=== PATIENT | female | born 1950 | race Caucasian/White ===

== ENCOUNTER 2017-04-02 23:00 | Inpatient (IN) | payer OTHER, BC ==
[~2017-04-02] VITALS: Ht 160 cm; Wt 61.7 kg
[~2017-04-02 23:00] MED LIST: ACET-8386 PO; CITA20TA15 PO; FERR325E14 PO; FOLI1TAB19 PO; NEBI10TA PO
[2017-04-02 23:20] VITALS: BP 149/82
[2017-04-02] MEDS ORDERED: ACETAMINOPHEN 325 MG TAB ONE (23:35)
--- NOTE | 2017-04-03 00:05 | NUR ---
PT TAKEN TO BED 6
--- NOTE | 2017-04-03 00:08 | NUR ---
67 Y/O F W/C/O L LEG SWELLING , PAIN,FEVER FOR 3 DAYS. SHE TOOK TYLENOL AT 1630 HOURS. PT ALSO STATES WAS REFER BY PMD TO THIS ER FOR LOW HGB AND HCT. PT ON MONITOR, VSS, NORMAL SINUS RHYTHM.
--- NOTE | 2017-04-03 00:11 | NUR ---
DR. KIM EVALUATING PT BY BEDSIDE
[2017-04-03 00:54] LABS: ANION GAP 13.5 (8-16); CARBON DIOXIDE 21.7 mmol/L (21-32); CREATININE 1.1 mg/dL (0.6-1.3); POTASSIUM 3.2 mmol/L (3.5-5.1)
[2017-04-03] MEDS ORDERED: HYDROmorphone 1 MG/ML AMP IVP ONE (00:55)
[2017-04-03 01:06] LABS: MEAN CORPUSCULAR HEMOGLOBIN 17 pg (27-31); MEAN CORPUSCULAR HGB CONC 29 g/dL (33-37); MEAN CORPUSCULAR VOLUME 59 fL (80-94); PLATELET COUNT (AUTO) 468 K/uL (140-450); RED BLOOD CELL COUNT(AUTO) 2.98 MIL/uL (4.20-5.40)
[2017-04-03 01:07] LABS: ALBUMIN 2.9 g/dL (3.4-5.0); TOTAL BILIRUBIN 0.4 mg/dL (0.0-1.0)
[2017-04-03 01:09] LABS: HEMATOCRIT 17.5 % (36-48); HEMOGLOBIN 5.1 g/dL (12.0-16.0); WHITE BLOOD COUNT (AUTO) 25.5 K/uL (4.8-10.8)
[2017-04-03 01:10] LABS: RED CELL DISTRIBUTION WIDTH 20.8 % (11.6-13.7)
[2017-04-03 01:11] LABS: EOSINOPHILS % (MANUAL) 1 % (0-4); LYMPHOCYTES % (MANUAL) 1 % (20-46); MONOCYTES % (MANUAL) 3 % (5-12)
--- NOTE | 2017-04-03 01:39 | NUR ---
PT RESTING IN BED, ASLEEP, VSS. NO S/S OF DISTRESS NOTED AT THE MOMENT.
[2017-04-03] MEDS ORDERED: PIPERACILLIN/TAZOBACTAM 4.5 GM in DEXTROSE 5% 100 ML IV ONE (01:40)
[2017-04-03] MEDS ORDERED: DOCUSATE SODIUM 100 MG GELCAP PO PRN (01:55)
[2017-04-03] MEDS ORDERED: ONDANSETRON 4 MG/2 ML VIAL IM/IVP PRN (01:55)
[2017-04-03] MEDS ORDERED: PIPERACILLIN/TAZOBACTAM 2.25 GM VIAL IV ONE (02:05)
--- NOTE | 2017-04-03 02:07 | NUR ---
TEMP 100.8 F, PT STATES SHE IS UNABLE TO PROVIDE URINE AT THE MOMENT. JOSE C RAMSEY MADE AWARE.
[2017-04-03 02:14] LABS: PROTHROMBIN TIME 10.3 secs (10.8-13.4)
--- NOTE | 2017-04-03 02:18 | NUR ---
Dr. Johnson evaluating patient at bedside.
[2017-04-03] MEDS ORDERED: IBUPROFEN 400 MG TAB ONE (02:19)
--- NOTE | 2017-04-03 02:24 | NUR ---
Patient will be admitted to care of DR ESQUIVEL. Admited to TELEMETRY. Will go to room 107B. Belongings list completed. Report to MADINA GAMBOA.
[2017-04-03 02:25] LABS: CHOL/HDL RATIO 3.3 (1-4.5); FREE T4 (FREE THYROXINE) 1.14 ng/dL (0.76-1.46); THYROID STIMULATING HORMONE 1.61 uIU/mL (0.34-3.74)
--- NOTE | 2017-04-03 02:53 | NUR ---
PT TRASFERED TO FLOOR VIA GURJUANA. ACCOMPANIED BY CHARGE NURSE AND PRIMARY CARE NURSE. PT STABLE DURING TRASFER.
[2017-04-03 03:00] VITALS: BP 95/53
--- NOTE | 2017-04-03 03:00 | NUR ---
RECEIVED PT FROM ER VIA AXEL JOHNSON PT IS AAOX4 WITH GENERALIZED WEAKNESS ON TELEMETRY SR HL ON LEFT AC PATENT BILATERAL LOWER EXTREMITIES WITH EDEMA 2+ AND LEFT LE WITH CELLULITIS AND SCAB ON RT LE PT IS ORIENTED TO THE FLOOR CALL LIGHT WITHIN REACH. PENDING FROM LAB TO CALL WHEN BLOOD IS READY
[2017-04-03] MEDS: NACL 0.9% 1,000 ML IV SCH (04:02)
--- NOTE | 2017-04-03 04:30 | NUR ---
AT 04:30 AM FIRST UNIT OF BLOOD STARTED TO BE TRANSFUSED
--- NOTE | 2017-04-03 06:41 | NUR ---
PT HAS BEEN MONITORING BLOOD TRANSFUSIION AND FOLLOW PROTOCOL PT AAOX4 NOT DISTRESS NOTED ON TELMETRY SR
--- NOTE | 2017-04-03 07:10 | NUR ---
PT TAKEN TO RADIOLOGY FOR CT OF THE CHEST, PATIENT PREMEDICATED DUE TO ALLERGY TO IODINE. Addendum: 04/03/17 at 1027 by Aure Chun RN WRONG PATIENT, DISREGARD NOTE. PT TAKEN TO RADIOLOGY FOR CT OF THE CHEST, PATIENT PREMEDICATED DUE TO ALLERGY TO IODINE.
--- NOTE | 2017-04-03 07:20 | NUR ---
RECEIVED BEDSIDE REPORT FROM BEE PAINTER. PT AWAKE AND ALERT, NO SIGNS OF ACUTE DISTRESS. BOWEL SOUNDS ACTIVE IN ALL 4 QUADRANTS. PT ON ROOM AIR. AMBULATORY WITH ASSIST. SCAB ON RT LEG. IV PATENT AND ASYMPTOMATIC. PT DENIES PAIN. RE-ORIENTED TO HOSPITAL AND TO UNIT, PT VERBALIZED UNDERSTANDING. BED IN LOW POSITION, BED ALARM ON, BILATERAL HALF SIDE RAILS UP, CALL LIGHT WITHIN REACH. WILL CONTINUE TO MONITOR.
--- NOTE | 2017-04-03 07:32 | NUR ---
RECEIVED PATIENT FROM CT, PT AWAKE AND ALERT, COMPLAINING OF THROAT FEELING TIGHT. OXYGEN SATURATION 100%, BLOOD PRESSURE 111/87, PULSE 68, RESPIRATIONS 18, TEMPERATURE 97.1. PAGED DR GALVAN. Addendum: 04/03/17 at 1026 by Aure Chun RN WRONG PATIENT, DISREGARD NOTE. RECEIVED PATIENT FROM CT, PT AWAKE AND ALERT, COMPLAINING OF THROAT FEELING TIGHT. OXYGEN SATURATION 100%, BLOOD PRESSURE 111/87, PULSE 68, RESPIRATIONS 18, TEMPERATURE 97.1. PAGED DR GALVAN.
--- NOTE | 2017-04-03 07:55 | NUR ---
PAGED DR GALVAN AGAIN, PATIENT COMPLAINT OF THROAT FEELING ITCHY AND TIGHT, PT STATES THAT IT IS GETTING BETTER. Addendum: 04/03/17 at 1027 by Aure Chun RN WRONG PATIENT, DISREGARD NOTE. PAGED DR GALVAN AGAIN, PATIENT COMPLAINT OF THROAT FEELING ITCHY AND TIGHT, PT STATES THAT IT IS GETTING BETTER.
[2017-04-03 08:00] VITALS: BP 111/87
--- NOTE | 2017-04-03 08:09 | NUR ---
PATIENT HAS BEEN SCREENED AND CATEGORIZED HIGH NUTRITION RISK. PATIENT WILL BE SEEN WITHIN 1-2 DAYS OF ADMISSION. 04/03/17-04/04/[address]
[2017-04-03] MEDS: FERROUS SULFATE 325 MG TABEC PO SCH ×2 (08:28→18:44)
[2017-04-03] MEDS: FOLIC ACID 1 MG TAB PO SCH (08:28)
[2017-04-03] MEDS: CITALOPRAM 20 MG TAB PO SCH (08:29)
--- NOTE | 2017-04-03 08:45 | NUR ---
PT BLOOD TRANSFUSION FINISHED. NO REACTIONS. VITAL SIGNS ALL WITHIN NORMAL LIMITS. PT TOLERATED TRANSFUSION WELL. WILL CONTINUE TO MONITOR.
[2017-04-03] MEDS ORDERED: KCL 20 MEQ/WATER INJ PREMIX 100 ML IV SCH (09:00)
[2017-04-03] MEDS ORDERED: NEBIVOLOL HCL PO SCH (09:00)
[2017-04-03] MEDS ORDERED: ATORVASTATIN 20 MG TAB PO SCH (09:50)
[2017-04-03] MEDS ORDERED: ECOTRIN 81 MG TABEC PO SCH (09:51)
[2017-04-03] MEDS ORDERED: SODIUM PHOS / POTASSIUM PHOS 1 PKT PDR PO SCH (09:52)
[2017-04-03] MEDS ORDERED: LACTOBACILLUS RHAMNOSUS GG 1 EACH CAP PO SCH (09:52)
--- NOTE | 2017-04-03 09:54 | NUR ---
RECEIVED NEW ORDERS FROM DR SANDOVAL, NOTED, WILL CARRY OUT.
--- NOTE | 2017-04-03 09:55 | NUR ---
OBTAINED URINE SPECIMEN FROM PATIENT, TAKEN TO LAB. WILL CONTINUE TO MONITOR.
--- NOTE | 2017-04-03 10:15 | NUR ---
HUMBERTO STEEN. PT TOLERATING WELL. WILL CONTINUE TO MONITOR.
[2017-04-03 10:43] LABS: APPEARANCE,URINE CLEAR (CLEAR); BILIRUBIN,URINE NEGATIVE (NEGATIVE); BLOOD, URINE 2+ (NEGATIVE); COLOR,URINE YELLOW (YELLOW); LEUKOCYTE ESTERASE ,URINE NEGATIVE (NEGATIVE); NITRITE, URINE NEGATIVE (NEGATIVE); PH,URINE 5.5 (5.0-9.0); UGLUCOSE NEGATIVE (NEGATIVE)
[2017-04-03 10:52] LABS: RBC,URINE 11-20 (MOD) /HPF (0-5)
--- NOTE | 2017-04-03 11:16 | NUR ---
RECEIVED NEW ORDER FROM DR SANDOVAL FOR ULTRASOUND OF KIDNEYS AND BLADDER, NOTED, WILL CARRY OUT.
--- NOTE | 2017-04-03 11:17 | NUR ---
CALLED ULTRASOUND TO CONFIRM IF PATIENT NEEDS TO BE NPO FOR KIDNEY AND BLADDER ULTRASOUND, TEACHER VOCATIONAL TRAINING NOT CURRENTLY THERE, WILL CALL ME BACK.
--- NOTE | 2017-04-03 11:28 | NUR ---
PER ROUNDER AND BACKER, PT DOES NOT NEED TO BE NPO FOR BLADDER AND KIDNEY ULTRASOUND. PASTORAL MINISTRIES PROFESSOR AT BEDSIDE.
--- NOTE | 2017-04-03 11:28 | NUR ---
DR NAIK AT PATIENT BEDSIDE, RECEIVED NEW ORDERS. NOTED, WILL CARRY OUT. WILL CONTINUE TO MONITOR.
[2017-04-03 12:00] VITALS: BP 118/64
[2017-04-03] MEDS: PIPER/TAZO 3.375GM/D5W PREMIX 50 ML IV SCH ×2 (12:22→21:04)
--- NOTE | 2017-04-03 13:00 | NUR ---
DR RANGEL AT PATIENT BEDSIDE.
--- NOTE | 2017-04-03 13:11 | NUR ---
RECEIVED NEW ORDERS FROM DR SANDOVAL FOR LABS 04/04/17.
--- NOTE | 2017-04-03 13:53 | NUR ---
04/03/17 RD INITIAL ASSESSMENT COMPLETED PLEASE REFER TO NUTRITION ASSESSMENT UNDER CARE ACTIVITY FOR ESTIMATED NUTRITIONAL NEEDS. 1. CONTINUE REGULAR DIET 2. ENCOURAGE PO INTAKE TOLERATED 3. RD TO FOLLOW UP WITHIN 2-3 DAYS; HIGH RISK DEANN EVANS RD
[2017-04-03 16:00] VITALS: BP 133/73
[2017-04-03 16:14] LABS: HEMATOCRIT 21.1 % (36-48); MEAN CORPUSCULAR HEMOGLOBIN 19 pg (27-31); MEAN CORPUSCULAR HGB CONC 30 g/dL (33-37); MEAN CORPUSCULAR VOLUME 64 fL (80-94); PLATELET COUNT (AUTO) 407 K/uL (140-450); RED CELL DISTRIBUTION WIDTH 25.6 % (11.6-13.7); WHITE BLOOD COUNT (AUTO) 29.6 K/uL (4.8-10.8)
[2017-04-03 16:17] LABS: HEMOGLOBIN 6.4 g/dL (12.0-16.0)
[2017-04-03 16:30] LABS: ANION GAP 10.9 (8-16); CARBON DIOXIDE 23.4 mmol/L (21-32); CREATININE 0.7 mg/dL (0.6-1.3); POTASSIUM 3.3 mmol/L (3.5-5.1)
[2017-04-03 16:32] LABS: EOSINOPHILS % (MANUAL) 1 % (0-4); LYMPHOCYTES % (MANUAL) 4 % (20-46); MONOCYTES % (MANUAL) 3 % (5-12)
[2017-04-03] MEDS: ACETAMINOPHEN 325 MG TAB PO SCH ×2 (18:05→22:27)
--- NOTE | 2017-04-03 18:11 | NUR ---
PATIENT TEMPERATURE 103.1. DR TAVARES AND DR SANDOVAL MADE AWARE. PER DR TAVARES AND DR SANDOVAL, STILL BEGIN TRANSFUSION. BENADRYL PO AND TYLENOL PO WERE GIVEN PRE TRANSFUSION 1805. BLOOD PRESSURE 134/65, PULSE 86, RESPIRATIONS 18, PATIENT DENIES PAIN. WILL CONTINUE TO MONITOR.
--- NOTE | 2017-04-03 18:26 | NUR ---
BEGAN BLOOD TRANSFUSION, TEMPERATURE 102.8, PULSE 83, RESPIRATIONS 18, BLOOD PRESSURE 136/57, PATIENT DENIES PAIN. WILL CONTINUE TO MONITOR. DR TAVARES MADE AWARE. ICE PACKS ON PATIENT'S NECK AND GROIN. WILL CONTINUE TO MONITOR.
--- NOTE | 2017-04-03 18:41 | NUR ---
15 MINUTES INTO BLOOD TRANSFUSION, TEMPERATURE 102.1, PULSE 85, RESPIRATIONS 18, BLOOD PRESSURE 124/71, PATIENT DENIES PAIN. WILL CONTINUE TO MONITOR.
--- NOTE | 2017-04-03 19:20 | NUR ---
PT AWAKE AND ALERT, RECEIVING BLOOD TRANSFUSION. ENDORSED TO BINDER OPERATOR NURSE FOR CONTINUITY OF CARE.
--- NOTE | 2017-04-03 19:25 | NUR ---
RECEIVED PT FROM DARNELL PAINTER PT IS AAOX4 ON BED REST ON BLOOD TRANSFUSION ON LEFT AC STABLE AT THIS TIME, ON TELEMETRY SR INITIAL ASSESSMENT DONE
[2017-04-03 20:00] VITALS: BP 114/59
--- NOTE | 2017-04-03 21:00 | NUR ---
PT LANE BEEN ON CLOSE MONITORING FOR BLOOD TRANSFUSION NOT SIGNS OF ALLERGY REMAIN STABLE AT THIS TIME REPOSITIONED
[2017-04-03] MEDS: ASCORBIC ACID 500 MG TAB PO SCH (21:04)
--- NOTE | 2017-04-03 22:00 | NUR ---
BLOOD TRANSFUSION FINISH TOLERATED WELL AND PROTOCOL DONE
[2017-04-03] MEDS: FUROSEMIDE 20 MG TAB PO SCH (22:27)
[2017-04-04] VITALS: BP 106/53
[2017-04-04] MEDS: FUROSEMIDE 20 MG TAB PO SCH
--- NOTE | 2017-04-04 | NUR ---
PT SLEPT WELL, EASY TO AWAKE. DENIES ANY PAIN AT THIS TIME. NO S/S OF RESP.DISTRESS, NO SOB.CALL LIGHT IN REACH.
[2017-04-04] MEDS: NACL 0.9% 1,000 ML IV SCH (01:54)
[2017-04-04 04:00] VITALS: BP 121/69
[2017-04-04] MEDS: ACETAMINOPHEN 325 MG TAB PO SCH (04:00)
--- NOTE | 2017-04-04 04:00 | NUR ---
PT SLEPT WELL,NO S/S OF RESP.DISTRESS,NO SOB. RESP EVEN NON LABOR ON ROOM AIR. SKIN WARM TO TOUCH.KEPT CLEAN AND DRY. CALL LIGHT PLACED BETWEEN REACH.
--- NOTE | 2017-04-04 05:00 | NUR ---
SPONGE BATH GIVEN LINEN CHANGED REPOSITIONED PT DENIES ANY PAIN OR DISCOMFORT ON TELEMETRY SR
[2017-04-04] MEDS: PIPER/TAZO 3.375GM/D5W PREMIX 50 ML IV SCH ×3 (05:11→20:21)
[2017-04-04] MEDS ORDERED: POTASSIUM CHLORIDE 20% 40 MEQ/15 ML UDC PO SCH (05:35)
--- NOTE | 2017-04-04 06:00 | NUR ---
ORAL POTASSIUM IS ORDER BUT DR TAVARES SAID WAIT TO GIVE IT UNTIL LAB RESULT THIS AM
[2017-04-04 06:20] LABS: HEMATOCRIT 25.1 % (36-48); HEMOGLOBIN 7.7 g/dL (12.0-16.0); MEAN CORPUSCULAR HEMOGLOBIN 20 pg (27-31); MEAN CORPUSCULAR HGB CONC 30 g/dL (33-37); MEAN CORPUSCULAR VOLUME 66 fL (80-94); PLATELET COUNT (AUTO) 401 K/uL (140-450); RED BLOOD CELL COUNT(AUTO) 3.83 MIL/uL (4.20-5.40); RED CELL DISTRIBUTION WIDTH 27.1 % (11.6-13.7)
[2017-04-04] MEDS: HYDROcodone/APAP 5/325 MG 1 TAB TAB PO PRN ×2 (06:20→17:21)
[2017-04-04 07:04] LABS: ANION GAP 13.1 (8-16); CARBON DIOXIDE 23.9 mmol/L (21-32); CREATININE 0.8 mg/dL (0.6-1.3)
[2017-04-04 07:45] LABS: WHITE BLOOD COUNT (AUTO) 35.2 K/uL (4.8-10.8)
[2017-04-04 07:47] LABS: LYMPHOCYTES % (MANUAL) 5 % (20-46); MONOCYTES % (MANUAL) 6 % (5-12)
[2017-04-04 08:00] VITALS: BP 119/66
--- NOTE | 2017-04-04 08:11 | NUR ---
RECEIVED REPORT FROM BEE PAINTER FOR CONTINUITY OF CARE PATIENT AWAKE, A/OX4 NO S/S OF RESP DISTRESS NOTED ABLE TO MAKE NEEDS KNOWN . IV SITE LT AC GAUGE 18 INTACT AND PATENT . IVF INFUSING WELL. RECEIVED CRITICAL LAB REPORT WBC 35.[address] LIPSCOMB AND NOTIFIED HIGH TEMP 101.0 , PLAN OF CARE DISCUSSED WITH THE PATIENT VITALS STABLE WILL CONTINUE TO MONITOR.
[2017-04-04 08:30] LABS: T4 (THYROXINE) 6.1 ug/dL (4.5-12.0)
[2017-04-04] MEDS ORDERED: ECOTRIN 81 MG TABEC PO SCH (09:00)
[2017-04-04] MEDS ORDERED: VANCOMYCIN PER PHARMACY MC PRN (09:00)
--- NOTE | 2017-04-04 09:30 | NUR ---
DUE MEDS GIVEN TOLERATED WELL. CRITICAL LAB K+ 2.[address] DINERO NEW ORDER CARRIED OUT . ATE BREAKFAST GOOD APPETITE
[2017-04-04 09:36] LABS: ANION GAP 14.9 (8-16); CARBON DIOXIDE 23.9 mmol/L (21-32); POTASSIUM 2.8 mmol/L (3.5-5.1)
[2017-04-04 09:37] LABS: ALBUMIN 2.3 g/dL (3.4-5.0); CREATININE 0.8 mg/dL (0.6-1.3); TOTAL BILIRUBIN 0.9 mg/dL (0.0-1.0)
[2017-04-04] MEDS: FERROUS SULFATE 325 MG TABEC PO SCH ×2 (09:51→17:18)
[2017-04-04] MEDS: ASCORBIC ACID 500 MG TAB PO SCH ×2 (09:51→20:20)
[2017-04-04] MEDS: LACTOBACILLUS RHAMNOSUS GG 1 EACH CAP PO SCH (09:51)
[2017-04-04] MEDS: FOLIC ACID 1 MG TAB PO SCH (09:51)
[2017-04-04] MEDS: ATORVASTATIN 20 MG TAB PO SCH (09:51)
[2017-04-04] MEDS: ACETAMINOPHEN 325 MG TAB PO PRN ×2 (09:51→20:20)
[2017-04-04] MEDS: CITALOPRAM 20 MG TAB PO SCH (09:52)
[2017-04-04] MEDS: SODIUM PHOS / POTASSIUM PHOS 1 PKT PDR PO SCH ×3 (09:52→16:32)
[2017-04-04] MEDS: CYANOCOBALAMIN 100 MCG TAB PO SCH (09:53)
[2017-04-04] MEDS ORDERED: VANCOMYCIN 1GM/DEXT 5% PREMIX 200 ML IV SCH (11:00)
--- NOTE | 2017-04-04 11:51 | NUR ---
SLEEPING BUT EASILY AWAKE NO DISTRESS NOTED VITALS STABLE
[2017-04-04] MEDS ORDERED: KCL 20 MEQ/WATER INJ PREMIX 100 ML IV SCH (12:00)
[2017-04-04 12:04] VITALS: BP 102/62
[2017-04-04 12:12] LABS: ANION GAP 8.9 (8-16); CARBON DIOXIDE 24.9 mmol/L (21-32); CREATININE 0.7 mg/dL (0.6-1.3); POTASSIUM 3.8 mmol/L (3.5-5.1)
[2017-04-04 12:51] LABS: FERRITIN 57 ng/mL (15-150); FOLIC ACID > 20.00 ng/mL (>3.0)
--- NOTE | 2017-04-04 14:19 | NUR ---
AMBULATE TO BATHROOM , NO WEAKNESS NOTED HAD BM STABLE CONDITION.
[2017-04-04 16:05] VITALS: BP 131/72
--- NOTE | 2017-04-04 17:07 | NUR ---
RESTING , NO DISTRESS NOTED DENIES ANY PAIN VITALS STABLE AT THIS TIME.
--- NOTE | 2017-04-04 17:23 | NUR ---
C/O PAIN ON LEFT LOWER LEG MEDICATED WITH NORCO ONE TAB ORDERED. INSTRUCT PATIENT TO CALL WHEN SHE HAS A BM PT VERBALIZED UNDERSTANDING.
--- NOTE | 2017-04-04 18:20 | NUR ---
SAFETY MAINTAINED, CALL LIGHT IN REACH ,STABLE CONDITION AT THIS TIME.
--- NOTE | 2017-04-04 19:20 | NUR ---
RECEIVED REPORT FROM DAY RN, PATIENT IS SLEEPING IN BED, NO S/S OF ACUTE DISTRESS NOTED, RESPIRATION EVEN AND UNLABORED, PATIENT IS EASY TO AROUSE, ORIENTED X4. IV INTACT AND PATENT, INFUSING NS AT 30ML/HR. PLAN OF CARE DISCUSSED, VERBALIZED UNDERSTANDING, CALL LIGHT WITHIN REACH, SAFETY MEASURE ENSURED, WILL CONTINUE TO MONITOR.
[2017-04-04 20:00] VITALS: BP 105/64
--- NOTE | 2017-04-04 20:25 | NUR ---
TEMP 100.4, TYLENOL GIVEN ORDERED. PM MEDICATION GIVEN WELL. PATIENT TOLERATED WELL. NO S/S OF ACUTE DISTRESS NOTED, RESPIRATION EVEN AND UNLABORED, WILL CONTINUE TO MONITOR.
--- NOTE | 2017-04-04 21:10 | NUR ---
PATIENT IS EXAMINED BY DR. MCCORMACK AT THE BEDSIDE.
[2017-04-04] MEDS ORDERED: CLINDAMYCIN 600 MG/4 ML VIAL ONE (23:18)
[2017-04-04] MEDS: CLINDAMYCIN 600 MG in DEXTROSE 5% 50 ML IV SCH (23:40)
--- NOTE | 2017-04-04 23:52 | NUR ---
TEMP 98.5, CLEOCIN STARTED, PATIENT TOLERATED WELL. WILL CONTINUE TO MONITOR
[2017-04-05] VITALS: BP 123/66
--- NOTE | 2017-04-05 01:35 | NUR ---
PATIENT IS SLEEPING AT THIS TIME, NO S/S OF ACUTE DISTRESS NOTED, RESPIRATION EVEN AND UNLABORED, CALL LIGHT WITHIN REACH, SAFETY MEASURE ENSURED, WILL CONTINUE TO MONITOR.
[2017-04-05] MEDS: NACL 0.9% 1,000 ML IV SCH (01:54)
--- NOTE | 2017-04-05 03:32 | NUR ---
IV ON THE BED, TIP INTACT, BLEEDING NOTED AT THE IV SITE. PRESSURE APPLIED TO THE IV SITE UNTIL NO ACTIVE BLEEDING NOTED. STARTED NEW IV ON LT HAND 22G, PATIENT TOLERATED WELL.
[2017-04-05 04:00] VITALS: BP 136/75
[2017-04-05] MEDS: HYDROcodone/APAP 5/325 MG 1 TAB TAB PO PRN ×3 (04:24→23:14)
[2017-04-05] MEDS ORDERED: CLINDAMYCIN 600 MG/4 ML VIAL ONE (04:52)
[2017-04-05] MEDS: CLINDAMYCIN 600 MG in DEXTROSE 5% 50 ML IV SCH ×4 (05:15→23:18)
--- NOTE | 2017-04-05 05:21 | NUR ---
AM CLEOCIN STARTED. PATIENT TOLERATED WELL, NO S/S OF ACUTE DISTRESS NOTED ,RESPIRATION EVEN AND UNLABORED. WILL CONTINUE TO MONITOR.
--- NOTE | 2017-04-05 06:19 | NUR ---
PATIENT IS SLEEPING AT THIS TIME NO S/S OF ACUTE DISTRESS NOTED, RESPIRATION EVEN AND UNLABORED, CALL LIGHT WITHIN REACH, SAFETY MEASURE ENSURED, WILL CONTINUE TO MONITOR.
[2017-04-05 07:10] LABS: HEMATOCRIT 24.2 % (36-48); HEMOGLOBIN 7.4 g/dL (12.0-16.0); MEAN CORPUSCULAR HEMOGLOBIN 20 pg (27-31); MEAN CORPUSCULAR HGB CONC 31 g/dL (33-37); MEAN CORPUSCULAR VOLUME 66 fL (80-94); PLATELET COUNT (AUTO) 452 K/uL (140-450); RED BLOOD CELL COUNT(AUTO) 3.67 MIL/uL (4.20-5.40)
--- NOTE | 2017-04-05 07:15 | NUR ---
ENDORSED PLAN OF CARE TO DAY RN. PATIENT IN STABLE CONDITION. NO S/S OF ACUTE DISTRESS.
--- NOTE | 2017-04-05 07:16 | NUR ---
RECEIVED PT FROM RADIOLOGIC TECHNOLOGIST CHIEF NURSE AT BEDSIDE. PT IS A&OX4. PT HAS IV ON L HAND 22 G RUNNING NS@30. PT HAS LLE SWELLING, 1+ PITTING. ELEVATED PT'S LEG ON 2 PILLOWS. PT HAS NO COMPLAINTS AT THIS TIME. CALL LIGHT WITHIN REACH. WILL CONTINUE TO MONITOR.
[2017-04-05 07:22] LABS: ANION GAP 10.6 (8-16); CARBON DIOXIDE 26.4 mmol/L (21-32); CREATININE 0.5 mg/dL (0.6-1.3)
[2017-04-05 07:33] LABS: WHITE BLOOD COUNT (AUTO) 34.4 K/uL (4.8-10.8)
[2017-04-05 08:00] VITALS: BP 114/64
[2017-04-05 08:15] LABS: LYMPHOCYTES % (MANUAL) 5 % (20-46); MONOCYTES % (MANUAL) 3 % (5-12)
[2017-04-05] MEDS ORDERED: POTASSIUM CHLORIDE 20% 40 MEQ/15 ML UDC PO SCH (09:00)
--- NOTE | 2017-04-05 09:00 | NUR ---
PT IN STABLE CONDITION. NO DISTRESS NOTED. CALL LIGHT WITHIN REACH. WILL CONTINUE TO MONITOR.
[2017-04-05] MEDS: CYANOCOBALAMIN 100 MCG TAB PO SCH (09:03)
[2017-04-05] MEDS: ATORVASTATIN 20 MG TAB PO SCH (09:03)
[2017-04-05] MEDS: CITALOPRAM 20 MG TAB PO SCH (09:04)
[2017-04-05] MEDS: ASCORBIC ACID 500 MG TAB PO SCH ×2 (09:04→21:21)
[2017-04-05] MEDS: LACTOBACILLUS RHAMNOSUS GG 1 EACH CAP PO SCH (09:04)
[2017-04-05] MEDS: FERROUS SULFATE 325 MG TABEC PO SCH ×2 (09:04→17:27)
[2017-04-05] MEDS: FOLIC ACID 1 MG TAB PO SCH (09:05)
--- NOTE | 2017-04-05 10:40 | NUR ---
PT REQUESTED TO SPEAK TO ONCE HER SON GETS HERE. WILL TALK TO DR TO LET HER KNOW ONCE SON GETS HERE. Addendum: 04/05/17 at 1056 by Cadence Welch RN WRONG PATIENT
[2017-04-05 12:00] VITALS: BP 119/69
--- NOTE | 2017-04-05 12:00 | NUR ---
PT SAT UP IN BED AND HAD LUNCH. TOLERATED WELL. CALL LIGHT WITHIN REACH. WILL CONTINUE TO MONITOR.
--- NOTE | 2017-04-05 14:05 | NUR ---
04/05/17 RD FOLLOW UP COMPLETED. PLEASE REFER TO NUTRITION PROGRESS NOTES UNDER CARE ACTIVITY FOR ESTIMATED NUTRITIONAL NEEDS. RD RECOMMENDATIONS: 1- RECOMMEND CONTINUE REGULAR DIET. 2- RD F/U 3-5 DAYS; MODERATE RISK. JASON KENNY MBA, RD
--- NOTE | 2017-04-05 14:56 | NUR ---
PT'S LLE SWELLING HAS GONE DOWN. KEEP LEG ELEVATED. CALL LIGHT WITHIN REACH. WILL CONTINUE TO MONITOR.
[2017-04-05 16:00] VITALS: BP 128/73
[2017-04-05] MEDS: ACETAMINOPHEN 325 MG TAB PO PRN (16:45)
--- NOTE | 2017-04-05 16:46 | NUR ---
PT'S ORAL TEMP 101.2. ICE PACKS APPLIED. TYLENOL GIVEN. WILL RECHECK TEMP. CALL LIGHT WITHIN REACH. WILL CONTINUE TO MONITOR.
--- NOTE | 2017-04-05 17:32 | NUR ---
PT ORAL TEMP 98.8. CALL LIGHT WITHIN REACH. WILL CONTINUE TO MONITOR.
--- NOTE | 2017-04-05 19:21 | NUR ---
ENDORSED CARE OF PT TO HAND MITER OPERATOR NURSE AT BEDSIDE. PT IN STABLE CONDITION.
--- NOTE | 2017-04-05 19:25 | NUR ---
RECEIVED PT FROM NAWAF PAINTER PT IS AAOX4 , NOT FEVER AT THIS TIME RESTING ON BED IV ON LEFT HAND INFUSING WELL , ON TELEMETRY SR PT DENIES ANY PAIN VISITOR AT BED SIDE INITIAL ASSESSMENT DONE
[2017-04-05 20:00] VITALS: BP 114/70
--- NOTE | 2017-04-05 22:00 | NUR ---
;PT REMAIN STABLE NOT DISTRESS NOTED WATCHING TV REPOSITIONED Q2H, ON TELEMETRY SR PVC
[2017-04-06] VITALS: BP 128/79
--- NOTE | 2017-04-06 01:15 | NUR ---
AFTER PAIN MEDIC GIVEN PT SLEEP QUIET NOT DISTRESS NOTED ON TELEM SR PVC
[2017-04-06] MEDS: NACL 0.9% 1,000 ML IV SCH (01:54)
[2017-04-06 04:00] VITALS: BP 134/68
--- NOTE | 2017-04-06 04:00 | NUR ---
SPONGE BATH GIVEN LINEN CHANGED PT SLEEPING WELL NOT FEVER ON TELEMETRY SR PAC REPOSITIONED Q2H
[2017-04-06] MEDS: CLINDAMYCIN 600 MG in DEXTROSE 5% 50 ML IV SCH ×2 (05:54→11:41)
--- NOTE | 2017-04-06 06:09 | NUR ---
PT DENIES ANY PAIN OR DISCOMFORT NOT FEVER ON TELE SR PVCS
[2017-04-06 06:56] LABS: HEMATOCRIT 23.5 % (36-48); HEMOGLOBIN 7.2 g/dL (12.0-16.0); MEAN CORPUSCULAR HEMOGLOBIN 20 pg (27-31); MEAN CORPUSCULAR HGB CONC 30 g/dL (33-37); MEAN CORPUSCULAR VOLUME 66 fL (80-94); PLATELET COUNT (AUTO) 465 K/uL (140-450); RED BLOOD CELL COUNT(AUTO) 3.59 MIL/uL (4.20-5.40); RED CELL DISTRIBUTION WIDTH 27.9 % (11.6-13.7); WHITE BLOOD COUNT (AUTO) 22.6 K/uL (4.8-10.8)
--- NOTE | 2017-04-06 07:10 | NUR ---
RECEIVED REPORT FROM NIGHT NURSE, PT RESTING, AAOX4, PT ON ROOM AIR, IV TO L HAND 22G, INFUSING WELL, SKIN INTACT WITH L LOWER LEG CELLULITIS AND R LOWER LEG SCAB, INITIAL ASSESSMENT COMPLETED, REVIEWED PLAN OF CARE WITH PT, PT VERBALIZED UNDERSTANDING, ALL SAFETY PRECAUTION MET, CALL LIGHT WITHIN REACH. WILL CONTINUE TO MONITOR.
[2017-04-06 07:27] LABS: ANION GAP 11.6 (8-16); CARBON DIOXIDE 25.8 mmol/L (21-32); CREATININE 0.5 mg/dL (0.6-1.3); POTASSIUM 3.4 mmol/L (3.5-5.1)
[2017-04-06 07:28] LABS: MAGNESIUM 1.8 mg/dL (1.8-2.4); PHOSPHORUS 2.7 mg/dL (2.5-4.9)
[2017-04-06 07:42] LABS: LYMPHOCYTES % (MANUAL) 8 % (20-46); MONOCYTES % (MANUAL) 2 % (5-12)
[2017-04-06] MEDS ORDERED: CLIN300C2 PO ×3 (07:46→14:22)
[2017-04-06] MEDS ORDERED: LACT10CA PO (07:46)
[2017-04-06 07:55] VITALS: BP 132/73
[2017-04-06] MEDS: LACTOBACILLUS RHAMNOSUS GG 1 EACH CAP PO SCH (08:42)
[2017-04-06] MEDS: CITALOPRAM 20 MG TAB PO SCH (08:42)
[2017-04-06] MEDS: FOLIC ACID 1 MG TAB PO SCH (08:42)
[2017-04-06] MEDS: ATORVASTATIN 20 MG TAB PO SCH (08:42)
[2017-04-06] MEDS: FERROUS SULFATE 325 MG TABEC PO SCH (08:42)
[2017-04-06] MEDS: CYANOCOBALAMIN 100 MCG TAB PO SCH (08:43)
[2017-04-06] MEDS: ASCORBIC ACID 500 MG TAB PO SCH (08:44)
--- NOTE | 2017-04-06 08:44 | NUR ---
DUE MEDICATION GIVEN, PT TOLERATED WELL, PT RESTING ON BED, NO DISTRESS NOTED, CALL LIGHT WITHIN REACH, WILL CONTINUE TO MONITOR.
[2017-04-06] MEDS: HYDROcodone/APAP 5/325 MG 1 TAB TAB PO PRN (08:52)
[2017-04-06] MEDS ORDERED: POTASSIUM CHLORIDE 20% 40 MEQ/15 ML UDC PO SCH (09:00)
[2017-04-06] MEDS ORDERED: PNEUMOCOCCAL VACCINE 23 MCG/0.5 ML VIAL IMVAC SCH (10:05)
--- NOTE | 2017-04-06 10:09 | NUR ---
DISCUSSED DISCHARGE PLANNING, PT VERBALIZED UNDERSTANDING. PT RESTING, NO DISTRESS NOTED, CALL LIGHT WITHIN REACH, WILL CONTINUE TO MONITOR.
--- NOTE | 2017-04-06 11:44 | NUR ---
DUE MEDICATION GIVEN, PT TOLERATED WELL, A SLEEP EASILY AROUSED, NO DISTRESS NOTED, CALL LIGHT WITHIN REACH
[2017-04-06 11:55] VITALS: BP 140/81
--- NOTE | 2017-04-06 14:15 | NUR ---
DISCHARGE INFORMATION GIVEN, MEDICATION INFORMATION GIVEN, FOLLOW UP INFORMATION GIVEN, NUTRITION INFORMATION GIVEN, PNEUMONIA VACCINE GIVEN, PT STATED UNDERSTANDING, IV TAKEN OUT, CATHETER INTACT, PT STABLE, BELONGING WITH PT, ID BANDS REMOVED. FRIEND BY BEDSIDE.
--- NOTE | 2017-04-06 14:20 | NUR ---
PT WAS WHEELED OUT TO LOBBY IN STABLE CONDITION.
== END 2017-04-06 14:20 | disposition home or self-care (01) | DRG 871 ==
LOC: MED 23:00 → MTU 04-03 02:00
PROVIDERS: ADMIT Family Medicine Sports Medicine; ATTEND Family Medicine Sports Medicine
PROC: 30233N1 Transfusion of Nonautologous Red Blood Cells into Peripheral Vein, Percutaneous Approach (ICD-10-PCS; principal; 2017-04-03)
DX: A41.9 Sepsis, unspecified organism (principal); N17.0 Acute kidney failure with tubular necrosis; I50.43 Acute on chronic combined systolic (congestive) and diastolic (congestive) heart failure; E44.0 Moderate protein-calorie malnutrition; L03.116 Cellulitis of left lower limb; E87.1 Hypo-osmolality and hyponatremia; D50.9 Iron deficiency anemia, unspecified; I11.0 Hypertensive heart disease with heart failure; M62.58 Muscle wasting and atrophy, not elsewhere classified, other site; E83.39 Other disorders of phosphorus metabolism; D58.0 Hereditary spherocytosis; D47.3 Essential (hemorrhagic) thrombocythemia; E78.5 Hyperlipidemia, unspecified; E87.6 Hypokalemia; K21.9 Gastro-esophageal reflux disease without esophagitis; Z86.73 Personal history of transient ischemic attack (TIA), and cerebral infarction without residual deficits; Z90.3 Acquired absence of stomach [part of]; Z88.5 Allergy status to narcotic agent; Z68.24 Body mass index [BMI] 24.0-24.9, adult; Z79.899 Other long term (current) drug therapy; Z87.11 Personal history of peptic ulcer disease; Z82.49 Family history of ischemic heart disease and other diseases of the circulatory system; Z56.0 Unemployment, unspecified
CPT/HCPCS: 36415; 71010; 76770; 80048; 80053; 80202; 81001; 82607; 82728; 82746; 83036; 83540; 83605; 83735; 83880; 84100; 84436; 84439; 84443; 84479; 84484; 85025; 85610; 85730; 86886; 86900; 86901; 86920; 87040; 87081; 87086; 90732; 93005; 93970; 96365; 96375; 99285; J1170; J2543; J3370; J3480; J3490; J7030; J7060; P9016; Q0092; Q0163

== ENCOUNTER 2017-04-14 15:51 | Inpatient (IN) | payer OTHER, BC ==
[~2017-04-14] VITALS: Ht 162.6 cm; Wt 60.8 kg
[~2017-04-14 15:51] MED LIST changes: +CLIN300C2 PO; +LACT10CA PO
[2017-04-14 16:29] VITALS: BP 137/79
--- NOTE | 2017-04-14 17:15 | NUR ---
PATIENT BIB PILLING MACHINE OPERATOR REFERRED BY DR HOWARD WITH C/O LEFT LEG PAIN CELLULITIS X 10 DAYS;HX OF ANEMIA, BRAIN ANEURYSM, ULCERS, HEMATOMA BACK NECK, DEPRESSION; RX OF NORCO . LT LEG HAS ULCER ; AAOX4 ; LUNGS CLEAR BL; HR EVEN AND REGULAR; PT DENIES ANY FEVER, CP, SOB, OR COUGH AT THIS TIME; PATIENT STATES PAIN OF 10/10 AT THIS TIME; VSS; PATIENT POSITIONED FOR COMFORT; HOB ELEVATED; BEDRAILS UP X2;ALL MONITORS IN PLACED; BED DOWN. ER MD MADE AWARE OF PT STATUS.
[2017-04-14 17:43] LABS: HEMATOCRIT 26.1 % (36-48); HEMOGLOBIN 8.1 g/dL (12.0-16.0); MEAN CORPUSCULAR HEMOGLOBIN 21 pg (27-31); MEAN CORPUSCULAR HGB CONC 31 g/dL (33-37); MEAN CORPUSCULAR VOLUME 68 fL (80-94); PLATELET COUNT (AUTO) 1309 K/uL (140-450); RED BLOOD CELL COUNT(AUTO) 3.83 MIL/uL (4.20-5.40); RED CELL DISTRIBUTION WIDTH 31.1 % (11.6-13.7)
[2017-04-14 17:52] LABS: PROTHROMBIN TIME 10.3 secs (10.8-13.4)
[2017-04-14 17:59] LABS: ALBUMIN 2.4 g/dL (3.4-5.0); CARBON DIOXIDE 28.1 mmol/L (21-32); POTASSIUM 5.1 mmol/L (3.5-5.1); TOTAL BILIRUBIN 0.2 mg/dL (0.0-1.0); WHITE BLOOD COUNT (AUTO) 15.1 K/uL (4.8-10.8)
[2017-04-14 18:00] LABS: LYMPHOCYTES % (MANUAL) 5 % (20-46); MONOCYTES % (MANUAL) 3 % (5-12)
[2017-04-14] MEDS ORDERED: NACL 0.9% 1,000 ML IV ONE (18:10)
[2017-04-14] MEDS ORDERED: CLINDAMYCIN 900 MG in DEXTROSE 5% 100 ML IV ONE (18:10)
[2017-04-14] MEDS ORDERED: KETOROLAC 30 MG/ML VIAL IVP ONE (18:10)
[2017-04-14 18:17] LABS: APPEARANCE,URINE CLEAR (CLEAR); BILIRUBIN,URINE 1+ (NEGATIVE); BLOOD, URINE NEGATIVE (NEGATIVE); LEUKOCYTE ESTERASE ,URINE NEGATIVE (NEGATIVE); NITRITE, URINE NEGATIVE (NEGATIVE); UGLUCOSE NEGATIVE (NEGATIVE)
[2017-04-14] MEDS ORDERED: CLINDAMYCIN 900 MG/6 ML VIAL IV ONE (18:18)
[2017-04-14 18:20] LABS: COLOR,URINE AMBER (YELLOW)
[2017-04-14] MEDS: NACL 0.9% 1,000 ML IV SCH (18:22)
[2017-04-14] MEDS ORDERED: DOCUSATE SODIUM 100 MG GELCAP PO PRN (18:25)
[2017-04-14] MEDS ORDERED: ONDANSETRON 4 MG/2 ML VIAL IM/IVP PRN (18:25)
--- NOTE | 2017-04-14 18:34 | NUR ---
PT RESTING ON BED;NO ACUTE DISTRESS NOTED;WILL CONTINUE TO MONITOR PT.
--- NOTE | 2017-04-14 19:00 | NUR ---
Patient will be admitted to care of DR HERMOSILLO. Admited to TELE. Will go to room 112 B. Belongings list completed. Report to MADINA KIMBROUGH.
[2017-04-14 20:00] VITALS: BP 109/62
--- NOTE | 2017-04-14 20:00 | NUR ---
LAB DID NOT CALL TO NOTIFY ME OF CRITICAL PLATELET COUNT, BUT MADE DR. FALK AWARE OF PLATELET COUNT 1309.
--- NOTE | 2017-04-14 20:00 | NUR ---
PT ARRIVED ON UNIT VIA GURNEY FROM ER. PT IS IN STABLE CONDITION. CC OF LLL PAIN FOR 5 DAYS, DX WITH CELLULITIS ON LLL. PT IS AAOX4, ON RA, IV TO R AC 20G, PATENT AND INTACT, INFUSING WELL. RESPIRATIONS ARE EVEN AND UNLABORED. BOWEL SOUNDS PRESENT. SKIN IS INTACT OTHER THEN THE CELLULITIS ON LEFT LOWER LEG. INITIAL ASSESSMENT COMPLETED.PLAN OF CARE DISCUSSED WITH PT, PT VERBALIZED UNDERSTANDING. ALL SAFETY PRECAUTIONS MET, CALL LIGHT WITHIN REACH, WILL CONTINUE TO MONITOR
[2017-04-14 20:22] LABS: CHOL/HDL RATIO 4.2 (1-4.5); FREE T4 (FREE THYROXINE) 0.87 ng/dL (0.76-1.46); MAGNESIUM 2.2 mg/dL (1.8-2.4); PHOSPHORUS 4.3 mg/dL (2.5-4.9); THYROID STIMULATING HORMONE 4.81 uIU/mL (0.34-3.74)
[2017-04-14 20:52] LABS: BARBITURATE, URINE NEG. ng/ml (NEG <=200); BENZODIAZEPINE, URINE POS. ng/mL (NEG <=200); CANNABINOID, URINE NEG. ng/mL (NEG <=50); COCAINE, URINE NEG. ng/mL (NEG <=300); OPIATE, URINE POS. ng/mL (NEG <=2000); PHENCYCLIDINE SCREEN,URINE NEG. ng/mL (NEG <=25)
[2017-04-14 21:32] LABS: HEMATOCRIT 23.4 % (36-48); MEAN CORPUSCULAR HEMOGLOBIN 21 pg (27-31); MEAN CORPUSCULAR HGB CONC 30 g/dL (33-37); MEAN CORPUSCULAR VOLUME 69 fL (80-94); PLATELET COUNT (AUTO) 1145 K/uL (140-450); RED BLOOD CELL COUNT(AUTO) 3.39 MIL/uL (4.20-5.40); RED CELL DISTRIBUTION WIDTH 30.9 % (11.6-13.7); WHITE BLOOD COUNT (AUTO) 12.1 K/uL (4.8-10.8)
--- NOTE | 2017-04-14 21:34 | NUR ---
LAB CALLED REGARDING H&H AND PLATELETS. H&H IS 7.0 AND 23.4. PLATELETS 1145. WILL PAGE THE
--- NOTE | 2017-04-14 21:35 | NUR ---
PAGED DR. FALK, REGARDING LABS. AWAITING PAGE BACK
--- NOTE | 2017-04-14 21:36 | NUR ---
DR. FALK MADE AWARE OF H&H AND PLATELETS, HE STATED HE WILL MONITOR THIS FOR NOW
[2017-04-14 21:40] LABS: EOSINOPHILS % (MANUAL) 1 % (0-4); LYMPHOCYTES % (MANUAL) 11 % (20-46); MONOCYTES % (MANUAL) 7 % (5-12)
--- NOTE | 2017-04-14 22:00 | NUR ---
SURESH GOMEZ REGARDING ADMIT ORDERS AWAITING PAGE BACK Addendum: 04/15/17 at 0147 by Pearl Hernandez RN ORDERS FOR PAIN MEDICATION AND DIET*
--- NOTE | 2017-04-14 22:30 | NUR ---
PAGED DR. GOMEZ AGAIN REGARDING MEDICATIONS AND DIET
--- NOTE | 2017-04-14 23:10 | NUR ---
PAGED DR. GOMEZ AGAIN REGARDING MEDICATIONS AND DIET
--- NOTE | 2017-04-14 23:40 | NUR ---
PAGED DR. GOMEZ AGAIN REGARDING MEDICATIONS AND DIET
[2017-04-15] VITALS: BP 119/57
--- NOTE | 2017-04-15 00:05 | NUR ---
PAGED DR. GOMEZ AGAIN REGARDING MEDICATIONS AND DIET
--- NOTE | 2017-04-15 00:50 | NUR ---
PAGED DR. GOMEZ AGAIN REGARDING MEDICATIONS AND DIET
--- NOTE | 2017-04-15 01:25 | NUR ---
DR. GOMEZ PAGED BACK, WILL CARRY OUT ORDERS
[2017-04-15] MEDS: ACETAMINOPHEN 325 MG TAB PO PRN ×2 (01:29→13:02)
--- NOTE | 2017-04-15 01:46 | NUR ---
ORDERS FOR PAIN MEDICATION AND DIET* Addendum: 04/15/17 at 0147 by Pearl Hernandez RN INCORRECT NOTE.
[2017-04-15 04:00] VITALS: BP 101/62
--- NOTE | 2017-04-15 04:10 | NUR ---
PAGED DR. COYLE TO PUT IN ORDER FOR PAIN MEDICATION THAT IS SEVERE
[2017-04-15] MEDS ORDERED: CLINDAMYCIN 600 MG/4 ML VIAL ONE (04:42)
[2017-04-15] MEDS: CLINDAMYCIN 600 MG in DEXTROSE 5% 50 ML IV SCH ×3 (04:44→21:06)
--- NOTE | 2017-04-15 05:05 | NUR ---
ADMINISTERED CLEOCIN WITH 50ML DEXTROSE FLUID
--- NOTE | 2017-04-15 06:05 | NUR ---
NS STARTED 0N 03/16/17 AND STILL INFUSING CLEOCIN STARTED ON 04/15/17 AT 0444 AND ENDED AT 0515 ON 04/15/17 Addendum: 04/15/17 at 0639 by Pearl Hernandez RN INCORRECT DATE* NS STARTED IN ER ON 04-14-17 STILL INFUSING. CLEOCIN 600 MG IVP STARTED ON 04-15-17 ON 0444 AND FINISHED 04-15-17 AT 0516
[2017-04-15 07:03] LABS: MEAN CORPUSCULAR HEMOGLOBIN 21 pg (27-31); MEAN CORPUSCULAR HGB CONC 30 g/dL (33-37); MEAN CORPUSCULAR VOLUME 68 fL (80-94); RED BLOOD CELL COUNT(AUTO) 3.25 MIL/uL (4.20-5.40); RED CELL DISTRIBUTION WIDTH 31.6 % (11.6-13.7); WHITE BLOOD COUNT (AUTO) 7.9 K/uL (4.8-10.8)
[2017-04-15 07:09] LABS: ANION GAP 11.2 (8-16); CARBON DIOXIDE 26.5 mmol/L (21-32); CREATININE 0.9 mg/dL (0.6-1.3); POTASSIUM 4.7 mmol/L (3.5-5.1)
--- NOTE | 2017-04-15 07:15 | NUR ---
ENDORSED PLAN OF CARE TO AM NURSE AT BEDSIDE FOR CONTINUITY OF CARE, PT IN STABLE CONDITION.
--- NOTE | 2017-04-15 07:20 | NUR ---
RECEIVED PT REPORT AT BEDSIDE FROM NIGHT NURSE. PT IS AAOX4 AND SHOWS NO S/S OF ACUTE DISTRESS ON ROOM AIR. PT ON TELE MONITOR. PT HAS NOTED ERYTHEMA, DRY, FLAKY SKIN ON THE LEFT LOWER LEG WITH SEROUS DRAINAGE. ALSO, WOUND BED IS DRY, DARK ERYTHEMATOUS AND FILM PRINTER. PT STATES PAIN ON THE LOWER LEG, WILL NOTIFY DR FOR PRN PAIN MEDICATION. IV NOTED ON THE R AC WITH IVF'S INFUSING WELL. PT WAS EXPLAINED POC FOR TODAY AND VERBALIZED UNDERSTANDING. THE BED IS LOWERED WITH CALL LIGHT WITHIN REACH. WILL CONTINUE TO MONITOR.
[2017-04-15 07:41] LABS: HEMOGLOBIN 6.7 g/dL (12.0-16.0)
[2017-04-15 07:42] LABS: PLATELET COUNT (AUTO) 1134 K/uL (140-450)
[2017-04-15 07:44] LABS: EOSINOPHILS % (MANUAL) 4 % (0-4); LYMPHOCYTES % (MANUAL) 24 % (20-46); MONOCYTES % (MANUAL) 4 % (5-12)
[2017-04-15 07:52] VITALS: BP 127/70
--- NOTE | 2017-04-15 08:20 | NUR ---
SPOKE WITH DR. COYLE REGARDING REQUEST FOR SEVERE PRN PAIN MEDICATIONS. TO PLACE IN ORDERS.
[2017-04-15 08:25] LABS: T4 (THYROXINE) 5.6 ug/dL (4.5-12.0)
--- NOTE | 2017-04-15 08:54 | NUR ---
PATIENT HAS BEEN SCREENED AND CATEGORIZED HIGH NUTRITION RISK. PATIENT WILL BE SEEN WITHIN 1-2 DAYS OF ADMISSION. 04/15/17-04/16/[address]
[2017-04-15] MEDS ORDERED: NEBIVOLOL HCL PO SCH (09:00)
[2017-04-15] MEDS: FERROUS SULFATE 325 MG TABEC PO SCH ×2 (09:02→17:37)
[2017-04-15] MEDS: LACTOBACILLUS RHAMNOSUS GG 1 EACH CAP PO SCH (09:02)
[2017-04-15] MEDS: CITALOPRAM 20 MG TAB PO SCH (09:03)
[2017-04-15] MEDS: FOLIC ACID 1 MG TAB PO SCH (09:03)
[2017-04-15] MEDS: HYDROcodone/APAP 10/325 MG 1 TAB TAB PO PRN ×3 (09:03→21:03)
[2017-04-15] MEDS: ASPIRIN 81 MG TAB.CHEW PO SCH (09:03)
--- NOTE | 2017-04-15 09:10 | NUR ---
ADMINISTERED SCHEDULED MEDICATIONS. PT TOLERATED WELL. PT C/O 6/10 LEFT LEG PAIN ADMINISTERED NORCO 10/325 MG PO. WILL REASSESS IN ONE HR. ALL OF PT'S NEEDS ARE MET AT THIS TIME. Addendum: 04/15/17 at 1144 by Lore Felton RN PT HAD 10/10 LOWER LEG PAIN, NOT 6/10.
[2017-04-15] MEDS ORDERED: FERRIC GLUCONATE 125 MG in NACL 0.9% 100 ML IV SCH (10:45)
[2017-04-15] MEDS: NACL 0.9% 1,000 ML IV SCH (11:34)
--- NOTE | 2017-04-15 11:35 | NUR ---
INFUSION OF NS IVF'S HAS ENDED.
--- NOTE | 2017-04-15 11:40 | NUR ---
SPOKE WITH DR SEWELL REGARDING PT'S HOME MEDICATION NEBIVOLOL HCL (BYSTOLIC) NON FORMULARY ITEM. TO PLACE IN NEW ORDERS.
[2017-04-15 12:00] VITALS: BP 137/86
--- NOTE | 2017-04-15 13:00 | NUR ---
ADMINISTERED SCHEDULED MEDICATIONS AND PRN TYLENOL 650 MG PO FOR MILD PAIN. WILL REASSESS IN ONE HR. PT AMB TO RR NOT PUTTING MUCH WEIGHT ON AFFECTED LEFT LEG. PT LIMPED TO THE RR. PT'S NEEDS ARE MET AT THIS TIME. PT IS NOW IN BED AND SHOWS NO S/S OF ACUTE DISTRESS ON ROOM AIR. IV ABX IS INFUSING WELL. WILL CONTINUE TO MONITOR.
[2017-04-15] MEDS ORDERED: MORPHINE SULFATE 2 MG/ML SYR IVP PRN (13:25)
[2017-04-15] MEDS ORDERED: LIDOCAINE 2% 1000 MG/50 ML VIAL INJ SCH (13:41)
--- NOTE | 2017-04-15 14:15 | NUR ---
PT BEING SEEN BY DR SEWELL FOR PROCEDURE OF DEBRIDEMENT. PT WAS MEDICATED FOR PAIN BEFORE HAND. WILL CONTINUE TO MONITOR.
--- NOTE | 2017-04-15 15:00 | NUR ---
PT IS SLEEPING AND SHOWS NO S/S OF ACUTE DISTRESS ON ROOM AIR. THE BED IS IN LOW POSITION WITH CALL LIGHT WITHIN REACH. WILL CONTINUE TO MONITOR.
[2017-04-15 16:00] VITALS: BP 142/80
--- NOTE | 2017-04-15 17:10 | NUR ---
ADMINISTERED PRN PAIN MEDICATION NORCO 10/325 MG PO FOR 7/10 LOWER LEFT LEG PAIN. WILL REASSESS IN ONE HR.
--- NOTE | 2017-04-15 19:25 | NUR ---
GAVE REPORT AT BEDSIDE TO NIGHT NURSE. PT ENDORSED IN STABLE CONDITION.
--- NOTE | 2017-04-15 19:26 | NUR ---
RECEIVED REPORT FROM DAY NURSE. PT IS IN STABLE CONDITION. PT IS AAOX4, ON ROOM AIR WITH CELLULITIS ON LLL. DRESSING IN PLACE, DRY AND INTACT. IV TO R AC 20G, PATENT AND INTACT, INFUSING WELL. RESPIRATIONS ARE EVEN AND UNLABORED. BOWEL SOUNDS PRESENT. INITIAL ASSESSMENT COMPLETED.PLAN OF CARE DISCUSSED WITH PT, PT VERBALIZED UNDERSTANDING. ALL SAFETY PRECAUTIONS MET, CALL LIGHT WITHIN REACH, WILL CONTINUE TO MONITOR
--- NOTE | 2017-04-15 19:30 | NUR ---
Patient's Plan of Care was discussed and reviewed with DUST COLLECTOR ATTENDANT: VENTURA GARCIA
[2017-04-15 20:00] VITALS: BP 133/76
[2017-04-16] VITALS: BP 126/74
[2017-04-16] MEDS ORDERED: MORPHINE SULFATE 2 MG/ML SYR ONE ×2 (01:41→05:17)
--- NOTE | 2017-04-16 01:50 | NUR ---
CALLED THE PHARMACY BECAUSE THE MORPHINE DR. NARANJO ORDERED HAS NOT BEEN VERIFIED YET, PHARMACY SAID TO HAVE SENIOR PROFESSIONAL SERVICES CONSULTANT OVERRIDE BECAUSE THEIR SYSTEM HAS BEEN DOWN AND THEY ARE NOT SURE WHEN IT WILL BE BACK UP. WILL NOTIFY SENIOR PROFESSIONAL SERVICES CONSULTANT
--- NOTE | 2017-04-16 01:51 | NUR ---
FAST FOOD COOK MADE AWARE OF PHARMACY SITUATION, FAST FOOD COOKBOUBACAR CALLED PHARMACY TO VERIFY WELL. SHE WILL OVERRIDE ORDER.
--- NOTE | 2017-04-16 01:52 | NUR ---
MORPHINE 2MG GIVEN TO PT FOR 10/10 LEFT LOWER LEG PAIN, AT 0152 04/16/[address] THOMAS, PHARMACY AND CDL TRUCK DRIVER VERIFIED.
[2017-04-16] MEDS: NACL 0.9% 1,000 ML IV SCH ×2 (03:42→20:51)
[2017-04-16 04:00] VITALS: BP 143/90
[2017-04-16] MEDS: CLINDAMYCIN 600 MG in DEXTROSE 5% 50 ML IV SCH ×3 (05:11→20:51)
[2017-04-16 06:00] LABS: HEMATOCRIT 23.7 % (36-48); HEMOGLOBIN 7.2 g/dL (12.0-16.0); MEAN CORPUSCULAR HEMOGLOBIN 21 pg (27-31); MEAN CORPUSCULAR HGB CONC 30 g/dL (33-37); MEAN CORPUSCULAR VOLUME 69 fL (80-94); PLATELET COUNT (AUTO) 1304 K/uL (140-450); RED BLOOD CELL COUNT(AUTO) 3.45 MIL/uL (4.20-5.40); RED CELL DISTRIBUTION WIDTH 31.6 % (11.6-13.7); WHITE BLOOD COUNT (AUTO) 7.4 K/uL (4.8-10.8)
[2017-04-16 06:04] LABS: ANION GAP 12.4 (8-16); CARBON DIOXIDE 25.4 mmol/L (21-32); CREATININE 0.6 mg/dL (0.6-1.3); POTASSIUM 4.8 mmol/L (3.5-5.1)
--- NOTE | 2017-04-16 06:30 | NUR ---
LAB DID NOT CALL REGARDING CRITICAL LAB VALUE OF PLATELETS OF 1304, MADE DR. JEFFERSON AWARE
[2017-04-16 06:42] LABS: EOSINOPHILS % (MANUAL) 8 % (0-4); LYMPHOCYTES % (MANUAL) 21 % (20-46); MONOCYTES % (MANUAL) 9 % (5-12)
--- NOTE | 2017-04-16 07:30 | NUR ---
RECEIVED PT IN BED. AWAKE. ALERT ORIENTED X4. NO SOB NOTED. DENIES ANY PAIN OR DISCOMFORT AT THIS TIME. POSITIVE BOWEL SOUNDS NOTED ON FOUR QUADRANTS, GOOD SKIN CARE PROVIDED ON LEFT LEG CELLULITIS. PT AMBULATORY WITH ASSIST. SAFETY PRECAUTION IN PLACE. CALL LIGHT WITHIN REACH.
--- NOTE | 2017-04-16 07:41 | NUR ---
GAVE REPORT TO DAY NURSE AT THE BEDSIDE FOR CONTINUITY OF CARE, PT IN STABLE CONDITION. NO S/S OF DISTRESS NOTED
[2017-04-16 08:00] VITALS: BP 158/83
[2017-04-16] MEDS: LACTOBACILLUS RHAMNOSUS GG 1 EACH CAP PO SCH (08:49)
[2017-04-16] MEDS: METOPROLOL SUCCINATE 50 MG TABER PO SCH (08:49)
[2017-04-16] MEDS: ASPIRIN 81 MG TAB.CHEW PO SCH (08:49)
[2017-04-16] MEDS: CITALOPRAM 20 MG TAB PO SCH (08:49)
[2017-04-16] MEDS: FOLIC ACID 1 MG TAB PO SCH (08:49)
[2017-04-16] MEDS: SODIUM CHLORIDE 1 GM TAB PO SCH (08:50)
[2017-04-16] MEDS: MORPHINE SULFATE 2 MG/ML SYR IVP PRN ×3 (08:53→21:02)
[2017-04-16 09:39] LABS: TRANSFERRIN 185 mg/dL (200-370)
--- NOTE | 2017-04-16 10:15 | NUR ---
ASKED DR. LAU IF WOULD WANT TO GIVE AN ORDER FOR LEFT LOWER LEG CELLULITIS WOUND, FOR WOUND CONSULT/TREATMENT. MD TO PUT IN AN ORDER.
[2017-04-16] MEDS ORDERED: ASCORBIC ACID 500 MG TAB PO SCH ×2 (10:33→13:30)
--- NOTE | 2017-04-16 10:33 | NUR ---
04/16/17 RD INITIAL ASSESSMENT COMPLETED PLEASE REFER TO NUTRITION ASSESSMENT UNDER CARE ACTIVITY FOR ESTIMATED NUTRITIONAL NEEDS. 1. CONTINUE CARDIAC DIET 2. ADD HEALTH SHAKE TID (FOR POOR PO INTAKE) 3. ADD VITAMIN C 500 MG/DAY (FOR WOUND HEALING) 4. RD TO FOLLOW-UP 2-3 DAYS, HIGH RISK DEANN EVANS, MAICOL
--- NOTE | 2017-04-16 11:39 | NUR ---
VITAL SIGNS TAKEN AND RECORDED. PT VERBALIZED THAT SHE FELT RELIEF AND PAIN MED WAS EFFECTIVE. NO SOB NOTED. DENIES ANY PAIN OR DISCOMFORT AT THIS TIME.
[2017-04-16 11:49] VITALS: BP 134/86
[2017-04-16 12:43] LABS: FERRITIN 55 ng/mL (15-150)
--- NOTE | 2017-04-16 12:59 | NUR ---
WOUND EVALUATION NOTE: REASON FOR WOUND EVALUATION: LLE POST DEBRIDEMENT WOUND CARE COMPLETE SKIN ASSESSMENT DONE ON THIS 67 Y/O FEMALE PATIENT FROM HOME TO [facility], WITH INITIAL DIAGNOSIS OF LLE SWELLING AND PAIN. PAST MEDICAL HISTORY INCLUDE HTN CVA, CEREBRAL ANEURYSM AND HEREDITARY SPHEROCYTOSIS. ALL ABOVE INFORMATION WAS OBTAINED FROM THE ADMISSION H&P. LABS ARE WBC 7.4, H/H 7.2/23.7, GLUCOSE 86, ALBUMIN 2.4. CURRENT MEDS INCLUDE AMLODIPINE, CLINDAMYCIN, ASPIRIN AND MORPHINE SULFATE. PATIENT IS AWAKE, ORIENTED TO PERSON, PLACE AND TIME. SKIN WARM TO TOUCH WNL, TOENAILS ARE SLIGHTLY THICKENED, NO EDEMA, BLE NO HAIR GROWTH AND NORMAL PEDAL PULSES. ABLE TO TURN SELF WITHOUT ASSISTANCE. PLAN OF CARE AND PRESSURE PREVENTIVE MEASURES DISCUSSED WITH PT. AND PRIMARY NURSE. PT. ABLE TO VERBALIZE UNDERSTANDING. INTEGUMENTARY: LLE LATERAL POST DEBRIDEMENT WOUND 6X5CM WITH 100% SLOUGH COVERED OVER WOUND BED, WITH ERYTHEMA SURROUND TISSUE, NO DRAINAGE, NO ODOR. BLE DRYNESS, SKIN INTACT RECOMMENDATIONS: -CLEAN LLE CELLULITIS ULCER WOUND WITH NS, PAT DRY, APPLY THERAHONEY WITH ADAPTIC AND COVER WITH DRY DRESSING AND SECURE WITH TAPE QD AND PRN IF SOILING. -APPLY HYDRAGUARD TO BLE DRY SKIN QD AND PRN -KEEP LLE ELEVATED,UNLESS OTHERWISE CONTRAINDICATED -TURN AND REPOSITION Q2H -OFFLOAD BILATERAL HEELS BY PLACING PILLOWS UNDER CALVES AT ALL TIMES, UNLESS OTHERWISE CONTRAINDICATED -KEEP SKIN CLEAN AND DRY AT ALL TIMES. -CONTINUE TO FOLLOW RD RECOMMENDATION -MAY HAVE HOME HEALTH TO FOLLOW UP FOR WOUND CARE COMORBIDITIES FOR WOUND HEALING: INFECTION MALNUTRITION WITH POOR ORAL INTAKE RECOMMENDATIONS DISCUSSED WITH PRIMARY RN AND DR. HILLIARD WILL FOLLOW UP PATIENT Q 7-10 DAYS AND PRN. PLEASE CONTACT WOUND CARE NURSE FOR ANY QUESTIONS AND CHANGES IN WOUND CONDITION.
--- NOTE | 2017-04-16 13:36 | NUR ---
CLARIFIED WITH DR. SEWELL ORDER FOR VITAMIN C, VIT C 500MG JUST GIVEN AND THERE IS A NEW ORDER FOR 250. MD TO CHANGE ORDER.
--- NOTE | 2017-04-16 13:43 | NUR ---
ENCOURAGED PT TO WALK ALONG THE HALLWAY, WAS ABLE TO DO ONE ROUND. PT WALKING STEADY. VERBALIZED SHE FEELS BETTER NOW THAN YESTERDAY.
[2017-04-16] MEDS: THERAHONEY GEL 42.5 GM TP SCH (13:58)
--- NOTE | 2017-04-16 14:29 | NUR ---
LEFT LOWER LEG CELLULITIS OPEN WOUND CLEANSED WITH NS PAT DRY AND APPLIED TREATMENT ORDERED. PT DENIES ANY PAIN WHILE CHANGING SITE. MINIMAL SEROUS DRAINAGE NOTED. NO ACTIVE BLEEDING NOTED. GOOD SKIN CARE PROVIDED.KEPT AREA CLEAN AND DRY. COVERED WITH GAUZE.
[2017-04-16 15:55] VITALS: BP 142/73
--- NOTE | 2017-04-16 19:20 | NUR ---
PT KEPT CLEAN,DRY AND COMFORTABLE, NEEDS ATTENDED. ENDORSED TO NEXT SHIFT ON STABLE CONDITION. FOR CONTINUITY OF CARE. NO SOB. DENIES ANY PAIN OR DISCOMFORT AT THIS TIME.
--- NOTE | 2017-04-16 19:30 | NUR ---
RECEIVED REPORT FROM DAY RN, PATIENT IS SLEEPING, EASY TO AROUSE, A/O X4, NO S/S OF ACUTE DISTRESS NOTED, RESPIRATION EVEN AND UNLABORED, IV PATENT AND INTACT, INFUSING NS AT 60ML/HR, LEFT LOWER EXTREMITY DRESSING CLEAN AND INTACT, PLAN OF CARE DISCUSSED, PATIENT VERBALIZED UNDERSTANDING, CALL LIGHT WITHIN REACH, SAFETY MEASURE ENSURED, WILL CONTINUE TO MONITOR.
[2017-04-16 20:01] VITALS: BP 151/80
[2017-04-16] MEDS ORDERED: amLODIPine 5 MG TAB PO SCH (21:00)
--- NOTE | 2017-04-16 21:05 | NUR ---
PATIENT STATED PAIN ON HER LT LOWER EXTREMITY 02/13, BP 151/80 HR 73, O2SAT 96%, MORPHINE GIVEN ORDERED, WILL CONTINUE TO MONITOR.
[2017-04-17] VITALS: BP 150/82
[2017-04-17] MEDS: MORPHINE SULFATE 2 MG/ML SYR IVP PRN ×3 (00:13→23:15)
--- NOTE | 2017-04-17 00:15 | NUR ---
PATIENT REQUESTED PAIN MEDICATION, UPON ASSESSMENT, PAIN 8/10, LT LOWER EXTREMITY, BP 150/82, HR 77, O2SAT 97%, MORPHINE GIVEN ORDERED, WILL CONTINUE TO MONITOR.
--- NOTE | 2017-04-17 01:47 | NUR ---
PATIENT IS SLEEPING AT THIS TIME, NO S/S OF ACUTE DISTRESS NOTED, RESPIRATION EVEN AND UNLABORED, CALL LIGHT WITHIN REACH, SAFETY MEASURE ENSURED, WILL CONTINUE TO MONITOR.
--- NOTE | 2017-04-17 03:11 | NUR ---
NO CHANGE IN CONDITION, LT LOWER EXTREMITY IS ELEVATED, PATIENT ASLEEP, NO S/S OF ACUTE DISTRESS NOTED, RESPIRATION EVEN AND UNLABORED, WILL CONTINUE TO MONITOR.
[2017-04-17 04:00] VITALS: BP 150/76
[2017-04-17] MEDS: CLINDAMYCIN 600 MG in DEXTROSE 5% 50 ML IV SCH ×3 (05:00→20:53)
--- NOTE | 2017-04-17 06:11 | NUR ---
PATIENT IS SLEEPING AT THIS TIME. NO S/S OF ACUTE DISTRESS NOTED, RESPIRATION EVEN AND UNLABORED, CALL LIGHT WITHIN REACH, SAFETY MEASURE ENSURED, WILL CONTINUE TO MONITOR.
[2017-04-17 06:40] LABS: BASOPHILS # (AUTO) 0.2 K/uL (0.00-0.22); BASOPHILS % (AUTO) 2.3 % (0.0-2.0); EOSINOPHILS # (AUTO) 0.2 K/uL (0-0.4); EOSINOPHILS % (AUTO) 2.3 % (0.0-4.0); HEMATOCRIT 24.2 % (36-48); HEMOGLOBIN 7.4 g/dL (12.0-16.0); MEAN CORPUSCULAR HEMOGLOBIN 21 pg (27-31); MEAN CORPUSCULAR HGB CONC 31 g/dL (33-37); MEAN CORPUSCULAR VOLUME 69 fL (80-94); MONOCYTES # (AUTO) 0.6 K/uL (0.8-1.0); MONOCYTES % (AUTO) 7.2 % (1.7-9.3); NEUTROPHILS # (AUTO) 4.9 K/uL (1.8-7.7); NEUTROPHILS % (AUTO) 63.2 % (42.2-75.2); PLATELET COUNT (AUTO) 1283 K/uL (140-450); RED CELL DISTRIBUTION WIDTH 31.8 % (11.6-13.7)
[2017-04-17 06:45] LABS: ANION GAP 9.6 (8-16); CARBON DIOXIDE 26.5 mmol/L (21-32); CREATININE 0.6 mg/dL (0.6-1.3); POTASSIUM 4.1 mmol/L (3.5-5.1)
--- NOTE | 2017-04-17 07:20 | NUR ---
ENDORSED PLAN OF CARE TO DAY RN, PATIENT IS IN STABLE CONDITION. NO S/S OF ACUTE DISTRESS.
[2017-04-17 07:21] LABS: WHITE BLOOD COUNT (AUTO) 7.9 K/uL (4.8-10.8)
--- NOTE | 2017-04-17 07:29 | NUR ---
RECEIVED PT IN BED. ASLEEP. AROUSABLE TO VOICE. ALERT ORIENTEDX4. NO SOB NOTED. DENIES ANY PAIN OR DISCOMFORT AT THIS TIME.POSITIVE BOWEL SOUNDS NOTED ON FOUR QUADRANTS. PT AMBULATORY. SAFETY PRECAUTION IN PLACE. CALL LIGHT WITHIN REACH.
[2017-04-17 08:00] VITALS: BP 154/76
[2017-04-17] MEDS ORDERED: ASCORBIC ACID 500 MG TAB PO SCH (09:00)
[2017-04-17] MEDS: SODIUM CHLORIDE 1 GM TAB PO SCH (09:02)
[2017-04-17] MEDS: ASPIRIN 81 MG TAB.CHEW PO SCH (09:03)
[2017-04-17] MEDS: METOPROLOL SUCCINATE 50 MG TABER PO SCH (09:03)
[2017-04-17] MEDS: LACTOBACILLUS RHAMNOSUS GG 1 EACH CAP PO SCH (09:03)
[2017-04-17] MEDS: CITALOPRAM 20 MG TAB PO SCH (09:03)
[2017-04-17] MEDS: ASCORBIC ACID 500 MG TAB PO SCH (09:03)
[2017-04-17] MEDS: FOLIC ACID 1 MG TAB PO SCH (09:03)
--- NOTE | 2017-04-17 10:24 | NUR ---
SUZY NOTE PATIENT INFORMATION FAXED TO [facility] / FAX# [phone], ATTN: REANNA #[phone] Addendum: 04/17/17 at 1256 by Ced Castanon RN PER MIRELLA FORTE TO TAKE PATIENT. IF PATIENT GET'S DISCHARGED OVER THE WEEKEND, PLEASE CALL [phone] TO UPDATE BEGINNING OF SERVICES.
--- NOTE | 2017-04-17 10:56 | NUR ---
PT TOOK A SHOWER. COVERED IV LINE AND LEFT LOWER LEG CELLULITIS. NO SOB NOTED. DENIES ANY PAIN OR DISCOMFORT AT THIS TIME. PT SHOWERED WITH LITTLE TO NO ASSISTANCE.
[2017-04-17] MEDS: NACL 0.9% 1,000 ML IV SCH (12:39)
[2017-04-17] MEDS: THERAHONEY GEL 42.5 GM TP SCH (13:09)
[2017-04-17 16:00] VITALS: BP 153/75
--- NOTE | 2017-04-17 19:29 | NUR ---
PT KEPT CLEAN, DRY AND COMFORTABLE, NEEDS ATTENDED. ENDORSED TO NEXT SHIFT ON STABLE CONDITION FOR CONTINUITY OF CARE. NO SOB NOTED. BRYAN ANY PAIN OR DISCOMFORT AT THIS TIME.
--- NOTE | 2017-04-17 19:30 | NUR ---
RECEIVED PT IN STABLE CONDITION FROM AM NURSE FOR CONTINUITY OF CARE. AWAKE,ALERT AND ORIENTED X4. MED SURG PT. WITH FAMILY MEMBER AT BEDSIDE. HAS IVF INFUSING WELL ON THE RT AC G#20. CLEAR AND PATENT. DENEIS ANY PAIN AT THIS TIME. LT LOWER LEG WITH DRESSING, CLEAN AND INTACT. PLAN OF CARE DISCUSSED AND VERBALIZED UNDERSTANDING. CALL L;IGHT PLACED WITHIN REACH. WILL CONTINUE TO MONITOR.
[2017-04-17 20:50] VITALS: BP 150/83
[2017-04-17] MEDS: amLODIPine 5 MG TAB PO SCH (20:54)
--- NOTE | 2017-04-17 21:00 | NUR ---
NIGHT MEDICATIONS GIVEN ORDERED. NO C/O OF ANY DISCOMFORT AT THIS TIME.
--- NOTE | 2017-04-17 22:00 | NUR ---
MADE ROUNDS . PT IS STILL AWAKE . NO C/O ANY PAIN NOTED. WILL CONTINUE TO MONITOR.
--- NOTE | 2017-04-18 00:30 | NUR ---
PT IS SLEEPING AT THIS TIME . NO S/S OF ANY DISCOMFORT NOTED. WILL CONTINUE TO MONITOR.
--- NOTE | 2017-04-18 02:30 | NUR ---
MADE ROUNDS. PT IS SLEEPING WELL. NO S/S FO ANY DISCOMFORT NOTED.
--- NOTE | 2017-04-18 04:00 | NUR ---
SLEEPING AT THIS TIME. NO S/S OF ANY PAIN NOR DISCOMFORT. WILL CONTINUE TO MONITOR.
[2017-04-18] MEDS: CLINDAMYCIN 600 MG in DEXTROSE 5% 50 ML IV SCH ×3 (04:46→20:24)
[2017-04-18 05:23] LABS: HEMATOCRIT 24.7 % (36-48); HEMOGLOBIN 7.6 g/dL (12.0-16.0); MEAN CORPUSCULAR HEMOGLOBIN 22 pg (27-31); MEAN CORPUSCULAR HGB CONC 31 g/dL (33-37); MEAN CORPUSCULAR VOLUME 70 fL (80-94); RED BLOOD CELL COUNT(AUTO) 3.55 MIL/uL (4.20-5.40); RED CELL DISTRIBUTION WIDTH 31.5 % (11.6-13.7); WHITE BLOOD COUNT (AUTO) 8.6 K/uL (4.8-10.8)
[2017-04-18] MEDS ORDERED: INFLUENZA VIRUS VACCINE QUAD 0.5 ML SYR IMVAC SCH (05:30)
[2017-04-18 05:33] LABS: ANION GAP 9.4 (8-16); CARBON DIOXIDE 26.6 mmol/L (21-32); CREATININE 0.6 mg/dL (0.6-1.3)
[2017-04-18 05:36] VITALS: BP 137/79
[2017-04-18] MEDS: HYDROcodone/APAP 10/325 MG 1 TAB TAB PO PRN ×3 (05:40→22:08)
[2017-04-18] MEDS: NACL 0.9% 1,000 ML IV SCH ×2 (05:42→08:22)
--- NOTE | 2017-04-18 05:50 | NUR ---
CLARIFIED WITH PT IF SHE REALLY WANTS THE FLU VACCINE AND SHE SAID YES. VACCINE GIVEN IM ON THE LT ARM.
--- NOTE | 2017-04-18 06:20 | NUR ---
DR. SEWELL CAME AND CHANGED THE DRESSING. NO PAIN NOTED.
[2017-04-18 06:46] LABS: PLATELET COUNT (AUTO) 1291 K/uL (140-450)
[2017-04-18 06:47] LABS: EOSINOPHILS % (MANUAL) 6 % (0-4); LYMPHOCYTES % (MANUAL) 23 % (20-46); MONOCYTES % (MANUAL) 4 % (5-12)
--- NOTE | 2017-04-18 07:30 | NUR ---
RECEIVED PT REPORT AT BEDSIDE. PT IS AWAKE, ALERT, AND ORIENTED X4. DENIES PAIN AT THIS TIME. NO S/S OF DISTRESS NOTED. LUNG SOUNDS CLEAR, BOWEL SOUNDS PRESENTED X4. CALL LIGHT AND PERSONAL ITEMS WITHIN REACH.
--- NOTE | 2017-04-18 07:40 | NUR ---
ENDORSED PT IN STABLE CONDITION TO AM NURSE.
[2017-04-18] MEDS: CITALOPRAM 20 MG TAB PO SCH (08:17)
[2017-04-18] MEDS: ASPIRIN 81 MG TAB.CHEW PO SCH (08:17)
[2017-04-18] MEDS: FOLIC ACID 1 MG TAB PO SCH (08:17)
[2017-04-18] MEDS: LACTOBACILLUS RHAMNOSUS GG 1 EACH CAP PO SCH (08:17)
[2017-04-18] MEDS: ASCORBIC ACID 500 MG TAB PO SCH (08:18)
[2017-04-18] MEDS: METOPROLOL SUCCINATE 50 MG TABER PO SCH (08:18)
--- NOTE | 2017-04-18 08:25 | NUR ---
04/18/17 RD FOLLOW-UP ASSESSMENT COMPLETED PLEASE REFER TO NUTRITION ASSESSMENT UNDER CARE ACTIVITY FOR ESTIMATED NUTRITIONAL NEEDS. 1. CONTINUE CARDIAC DIET + HEALTH SHAKE TID 2. ENCOURAGE INCREASED PO INTAKE TO TOLERANCE 3. CONTINUE VITAMIN C SUPPLEMENT 4. RD TO FOLLOW-UP 3-5 DAYS, MODERATE RISK DEANN EVANS, RD
[2017-04-18] MEDS: SODIUM CHLORIDE 1 GM TAB PO SCH (10:20)
[2017-04-18] MEDS: THERAHONEY GEL 42.5 GM TP SCH (14:00)
--- NOTE | 2017-04-18 14:00 | NUR ---
DRESSING ON THE LEFT LEG WAS REMOVED. CLEANSED WITH NS AND PATTED DRY WITH GAUZE. WOUND IS OPEN WITH MINIMAL DRAINAGE. WOUND BED IS YELLOW AND WHITE. SURROUNDING TISSUES ARE RED AND PINK, BLANCHABLE. WOUND MEASURED 6CM IN LENGTH AND 3CM IN WIDTH. PICTURE TAKEN. THERAHONEY GEL APPLIED TO THE WOUND, COVERED WITH GAUZE, AND SECURED WITH TAPE. PT TOLERATED WELL.
[2017-04-18 16:30] VITALS: BP 142/75
[2017-04-18] MEDS: MORPHINE SULFATE 2 MG/ML SYR IVP PRN (18:48)
--- NOTE | 2017-04-18 19:35 | NUR ---
ENDORSED PT TO THE GLASSWARE SELECTOR. PT SHOWS NO S/S OF DISTRESS, IN STABLE CONDITION.
--- NOTE | 2017-04-18 19:36 | NUR ---
RECEIVED REPORT FROM AM NURSE. PT RESTING IN BED, AOX4, AMBULATORY, ABLE TO VERBALIZE NEEDS. PT DENIES CHEST PAIN, SOB OR S/S OF ACUTE DISTRESS. PT C/O SLIGHT LLE PAIN, ALREADY MEDICATED BY AM NURSE, WILL CONTINUE TO MONITOR. LEFT LEG DRESSING CLEAN DRY AND INTACT. DRYNESS NOTED AROUND SKIN ON LLE. IV ACCESS ASYMPTOMATIC, PATENT AND INTACT. IVF INFUSING WELL. DISCUSSED AND REVIEWED PLAN OF CARE WITH PT. PT VERBALIZED UNDERSTANDING. ALL NEEDS MET. SAFETY MEASURES ENSURED. CALL LIGHT WITHIN REACH. WILL CONTINUE TO MONITOR.
[2017-04-18 20:00] VITALS: BP 141/73
[2017-04-18] MEDS: amLODIPine 5 MG TAB PO SCH (20:24)
--- NOTE | 2017-04-18 20:32 | NUR ---
ADMINISTERED DUE MEDS WITH EDUCATION. PT VERBALIZED UNDERSTANDING, TOLERATED MEDS WELL. ALL NEEDS MET. IVPB INFUSING WELL. SAFETY MEASURES ENSURED. CALL LIGHT WITHIN REACH. WILL CONTINUE TO MONITOR.
--- NOTE | 2017-04-18 22:08 | NUR ---
PT C/O PAIN. SEE PAIN ASSESSMENT. ADMINISTERED NORCO PO PRN ORDERED WITH EDUCATION. PT VERBALIZED UNDERSTANDING, TOLERATED MED WELL. ALL NEEDS MET. IVF INFUSING WELL. SAFETY MEASURES ENSURED. CALL LIGHT WITHIN REACH. WILL CONTINUE TO MONITOR.
[2017-04-19] VITALS: BP 133/67
--- NOTE | 2017-04-19 00:01 | NUR ---
PT SLEEPING COMFORTABLY, AROUSABLE TO NAME. NO S/S OF ACUTE DISTRESS. ALL NEEDS MET. IVF INFUSING WELL. SAFETY MEASURES ENSURED. CALL LIGHT WITHIN REACH. WILL CONTINUE TO MONITOR.
[2017-04-19] MEDS: CLINDAMYCIN 600 MG in DEXTROSE 5% 50 ML IV SCH (05:42)
[2017-04-19] MEDS: NACL 0.9% 1,000 ML IV SCH ×2 (05:45→22:22)
--- NOTE | 2017-04-19 07:20 | NUR ---
RECEIVED BEDSIDE REPORT FROM NIGHT NURSE, PT STABLE, PT AAOX4, ON ROOM AIR, IV R AC 20 G RUNNING NS @60 ML/HR, INFUSING WELL, SKIN L LOWER LEG WOUND WITH DRESSING DRY AND INTACT, INITIAL ASSESSMENT BEEN COMPLETED, REVIEWED PLAN OF CARE WITH PT, PT STATED UNDERSTANDING, ALL SAFETY PRECAUTION MET, CALL LIGHT WITHIN REACH, WILL CONTINUE TO MONITOR.
[2017-04-19 08:00] VITALS: BP 114/75
[2017-04-19] MEDS ORDERED: FERROUS SULFATE 325 MG TABEC PO SCH (08:00)
[2017-04-19] MEDS: CITALOPRAM 20 MG TAB PO SCH (08:16)
[2017-04-19] MEDS: HYDROcodone/APAP 10/325 MG 1 TAB TAB PO PRN ×3 (08:16→21:31)
[2017-04-19] MEDS: FOLIC ACID 1 MG TAB PO SCH (08:16)
[2017-04-19] MEDS: ASCORBIC ACID 500 MG TAB PO SCH (08:16)
[2017-04-19] MEDS: LACTOBACILLUS RHAMNOSUS GG 1 EACH CAP PO SCH (08:16)
[2017-04-19] MEDS: ASPIRIN 81 MG TAB.CHEW PO SCH (08:17)
--- NOTE | 2017-04-19 08:17 | NUR ---
SCHEDULED MEDICATION GIVEN, PT TOLERATED WELL, PT RESTING, NO DISTRESS NOTED, CALL LIGHT WITHIN REACH, WILL CONTINUE TO MONITOR
[2017-04-19] MEDS: METOPROLOL SUCCINATE 50 MG TABER PO SCH (08:21)
[2017-04-19] MEDS: SODIUM CHLORIDE 1 GM TAB PO SCH (08:26)
[2017-04-19] MEDS: LEVOFLOXACIN 750 MG/D5W PREMIX 150 ML IV SCH (09:16)
--- NOTE | 2017-04-19 09:30 | NUR ---
SCHEDULED IV MEDICATION GIVEN, TOLERATED WELL, PT SLEEPING, EASY TO AROUSE, NO DISTRESS NOTED, WILL CONTINUE TO MONITOR
--- NOTE | 2017-04-19 11:56 | NUR ---
PT SLEEPING, EASY TO AROUSE, NO DISTRESS NOTED, CALL LIGHT WITHIN REACH, WILL CONTINUE TO MONITOR.
[2017-04-19] MEDS: THERAHONEY GEL 42.5 GM TP SCH (14:17)
--- NOTE | 2017-04-19 14:19 | NUR ---
WOUND ASSESSMENT COMPLETED, DRESSING CHANGED, PT TOLERATED WELL, REPORTED HAVING NO PAIN, PT STABLE, NO DISTRESS NOTED, CALL LIGHT WITHIN REACH, WILL CONTINUE TO MONITOR.
[2017-04-19 16:00] VITALS: BP 126/70
--- NOTE | 2017-04-19 16:20 | NUR ---
PT RESTING, NO DISTRESS NOTED, CALL LIGHT WITHIN REACH, WILL CONTINUE TO MONITOR.
--- NOTE | 2017-04-19 19:10 | NUR ---
GAVE BEDSIDE REPORT TO NIGHT NURSE, PT EATING DINNER, NO DISTRESS NOTED, CALL LIGHT WITHIN REACH.
--- NOTE | 2017-04-19 19:15 | NUR ---
RECEIVED REPORT FROM AM NURSE. PT RESTING IN BED, AOX4, AMBULATORY, ABLE TO VERBALIZE NEEDS. PT DENIES CHEST PAIN, SOB OR S/S OF ACUTE DISTRESS. PT REPORTS RELIEF OF PAIN, PAIN TOLERABLE, PT WILL CALL IF PAIN MED IS NEEDED. LEFT LEG DRESSING CLEAN DRY AND INTACT. DRYNESS NOTED AROUND SKIN ON LLE. IV ACCESS ASYMPTOMATIC, PATENT AND INTACT. IVF INFUSING WELL. DISCUSSED AND REVIEWED PLAN OF CARE WITH PT. PT VERBALIZED UNDERSTANDING. ALL NEEDS MET. SAFETY MEASURES ENSURED. CALL LIGHT WITHIN REACH. WILL CONTINUE TO MONITOR.
[2017-04-19 20:00] VITALS: BP 123/72
[2017-04-19] MEDS: amLODIPine 5 MG TAB PO SCH (21:09)
--- NOTE | 2017-04-19 21:32 | NUR ---
PT C/O PAIN. SEE PAIN ASSESMENT. ADMINISTERED NORCO PO PRN ORDERED WITH EDUCATION. ADMINISTERED DUE MEDS WITH EDUCATION. PT VERBALIZED UNDERSTANDING, TOLERATED MEDS WELL. ALL NEEDS MET. IVF INFUSING WELL. SAFETY MEASURES ENSURED. CALL LIGHT WITHIN REACH. WILL CONTINUE TO MONITOR.
[2017-04-20] VITALS: BP 120/67
--- NOTE | 2017-04-20 00:01 | NUR ---
PT RESTING COMFORTABLY IN BED, NO S/S OF ACUTE DISTRESS. ALL NEEDS MET. IVF INFUSING WELL. SAFETY MEASURES ENSURED. CALL LIGHT WITHIN REACH. WILL CONTINUE TO MONITOR.
--- NOTE | 2017-04-20 02:00 | NUR ---
PT SLEEPING COMFORTABLY, NO S/S OF ACUTE DISTRESS. ALL NEEDS MET. IVF INFUSING WELL. SAFETY MEASURES ENSURED. CALL LIGHT WITHIN REACH. WILL CONTINUE TO MONITOR.
--- NOTE | 2017-04-20 05:09 | NUR ---
PT SLEEPING COMFORTABLY, NO S/S OF ACUTE DISTRESS. ALL NEEDS MET. IVF INFUSING WELL. SAFETY MEASURES ENSURED. CALL LIGHT WITHIN REACH. WILL CONTINUE TO MONITOR.
[2017-04-20] MEDS: HYDROcodone/APAP 10/325 MG 1 TAB TAB PO PRN ×3 (06:01→22:27)
[2017-04-20 06:50] LABS: HEMATOCRIT 25.9 % (36-48); HEMOGLOBIN 7.8 g/dL (12.0-16.0); MEAN CORPUSCULAR HEMOGLOBIN 22 pg (27-31); MEAN CORPUSCULAR HGB CONC 30 g/dL (33-37); MEAN CORPUSCULAR VOLUME 72 fL (80-94); RED BLOOD CELL COUNT(AUTO) 3.61 MIL/uL (4.20-5.40); RED CELL DISTRIBUTION WIDTH 31.9 % (11.6-13.7); WHITE BLOOD COUNT (AUTO) 9.2 K/uL (4.8-10.8)
[2017-04-20 06:51] LABS: ANION GAP 9.4 (8-16); CARBON DIOXIDE 28.8 mmol/L (21-32); CREATININE 0.7 mg/dL (0.6-1.3); POTASSIUM 4.2 mmol/L (3.5-5.1)
[2017-04-20 06:58] LABS: PLATELET COUNT (AUTO) 1171 K/uL (140-450)
[2017-04-20 07:05] LABS: MAGNESIUM 1.8 mg/dL (1.8-2.4); PHOSPHORUS 3.9 mg/dL (2.5-4.9)
--- NOTE | 2017-04-20 07:15 | NUR ---
ENDORSED PLAN OF CARE TO AM NURSE. CONDITION STABLE.
--- NOTE | 2017-04-20 07:15 | NUR ---
RECEIVED PT REPORT AT BEDSIDE FROM NIGHT NURSE. PT IS AAOX4 AND SHOWS NO S/S OF ACUTE DISTRESS ON ROOM AIR. IV NOTED ON THE RIGHT AC WITH NS RUNNING AT 10ML/HR. NO SIGNS OF INFILTRATION. WOUND DRESSING NOTED ON THE LEFT LEG. DRESSING IS DRY AND INTACT, MINIMAL DRAINAGE NOTED. PT DENIES PAIN. THE BED IS IN LOW POSITION, CALL LIGHT WITHIN REACH. WILL CONTINUE TO MONITOR.
[2017-04-20 07:29] LABS: BASOPHILS % (MANUAL) 0 % (0-2); EOSINOPHILS % (MANUAL) 4 % (0-4); LYMPHOCYTES % (MANUAL) 25 % (20-46); MONOCYTES % (MANUAL) 6 % (5-12)
[2017-04-20 08:03] VITALS: BP 135/70
[2017-04-20] MEDS: LACTOBACILLUS RHAMNOSUS GG 1 EACH CAP PO SCH (09:21)
[2017-04-20] MEDS: ASCORBIC ACID 500 MG TAB PO SCH (09:21)
[2017-04-20] MEDS: FOLIC ACID 1 MG TAB PO SCH (09:21)
[2017-04-20] MEDS: CITALOPRAM 20 MG TAB PO SCH (09:21)
[2017-04-20] MEDS: METOPROLOL SUCCINATE 50 MG TABER PO SCH (09:27)
[2017-04-20] MEDS: ASPIRIN 81 MG TAB.CHEW PO SCH (09:27)
[2017-04-20] MEDS: LEVOFLOXACIN 750 MG/D5W PREMIX 150 ML IV SCH (09:28)
--- NOTE | 2017-04-20 14:25 | NUR ---
DRESSING CHANGED ON THE LEFT LEG WOUND. WOUND CLEANSED WITH NS. PATTED DRY. COVERED WITH STERIL GAUZE, WRAPPED WITH KARIME. WOUND SIZE HAD BEEN REDUCED FROM 6 CM TO 5.5 CM IN LENGTH.
[2017-04-20] MEDS: THERAHONEY GEL 42.5 GM TP SCH (14:56)
[2017-04-20 16:00] VITALS: BP 121/70
--- NOTE | 2017-04-20 19:30 | NUR ---
ENDORSED PT TO BRIDAL CONSULTANT. PT REPORT GIVEN AT BEDSIDE. PT IS IN STABLE CONDITION. PT SHOWS NO S/S ACUTE DISTRESS.
--- NOTE | 2017-04-20 19:31 | NUR ---
RECEIVED REPORT FROM DAY RN AT BEDSIDE. PT IS AAOX4. ON ROOM AIR. NO SHORTNESS OF BREATH OR SIGNS OF DISTRESS NOTED. IV TO RIGHT AC #20G, INTACT. LEFT LOWER LEG SKIN FLAKY AND DRY WITH DRESSING PRESENT, DRY AND INTACT. DENIES PAIN. DISCUSS PLAN OF CARE TO PT. PT VERBALIZED UNDERSTANDING. CALL LIGHT WITHIN REACH. WILL CONTINUE TO MONITOR.
[2017-04-20 20:00] VITALS: BP 115/76
[2017-04-20] MEDS: amLODIPine 5 MG TAB PO SCH (20:46)
--- NOTE | 2017-04-20 21:00 | NUR ---
DUE MEDS GIVE. PT TOLERATED WELL. PATIENT RESTING IN BED. NO C/O PAIN AT THIS TIME. CALL LIGHT WITHIN REACH.
[2017-04-20] MEDS: NACL 0.9% 1,000 ML IV SCH (22:22)
--- NOTE | 2017-04-21 00:10 | NUR ---
VITAL SIGNS STABLE, NO DISTRESS NOTED, CALL LIGHT WITHIN REACH. WILL CONTINUE TO MONITOR
--- NOTE | 2017-04-21 00:15 | NUR ---
VITAL SIGNS STABLE, NO DISTRESS NOTED. CALL LIGHT WITHIN REACH. WILL CONTINUE TO MONITOR.
--- NOTE | 2017-04-21 02:00 | NUR ---
PATIENT SLEEPING , NO DISTRESS. CALL LIGHT WITHIN REACH. WILL CONTINUE TO MONITOR.
[2017-04-21 06:13] LABS: ANION GAP 7.6 (8-16); CARBON DIOXIDE 29.2 mmol/L (21-32); CREATININE 0.7 mg/dL (0.6-1.3); POTASSIUM 3.8 mmol/L (3.5-5.1)
[2017-04-21 06:56] LABS: HEMATOCRIT 26.6 % (36-48); HEMOGLOBIN 8.4 g/dL (12.0-16.0); MEAN CORPUSCULAR HEMOGLOBIN 23 pg (27-31); MEAN CORPUSCULAR HGB CONC 32 g/dL (33-37); MEAN CORPUSCULAR VOLUME 73 fL (80-94); RED BLOOD CELL COUNT(AUTO) 3.65 MIL/uL (4.20-5.40); RED CELL DISTRIBUTION WIDTH 32.7 % (11.6-13.7); WHITE BLOOD COUNT (AUTO) 7.4 K/uL (4.8-10.8)
[2017-04-21 07:07] LABS: PLATELET COUNT (AUTO) 983 K/uL (140-450)
[2017-04-21 07:08] LABS: EOSINOPHILS % (MANUAL) 6 % (0-4); LYMPHOCYTES % (MANUAL) 26 % (20-46); MONOCYTES % (MANUAL) 5 % (5-12)
--- NOTE | 2017-04-21 07:18 | NUR ---
ENDORSED PT TO DAY SHIFT RN. PT IN STABLE CONDITION.
--- NOTE | 2017-04-21 07:20 | NUR ---
RECEIVED REPORT FROM MAGNETIC TAPE COMPOSER OPERATOR NURSE, PT IS SLEEPING IN BED BUT EASILY AWAKEN, A/OX4, AMBULATORY, PT HAS IV ON THE RIGHT AC, PATENT, INTACT, FLUSHING WELL, PATIENT HAS DRESSING ON THE LEFT LOWER LEG, DRY AND INTACT AT THIS TIME, NO S/S OF RESPIRATORY DISTRESS OR DISCOMFORT NOTED, DISCUSSED PLAN OF CARE WITH PT, PT VERBALIZED UNDERSTANDING, SAFETY/FALL PRECAUTIONS ARE IN PLACE, CALL LIGHT IS WITHIN REACH, WILL CONTINUE TO MONITOR.
[2017-04-21] MEDS ORDERED: Therahoney Gel TP ×3 (07:34→15:09)
[2017-04-21] MEDS ORDERED: METO50TE2 PO (07:34)
[2017-04-21] MEDS ORDERED: CITA20TA15 PO (07:34)
[2017-04-21] MEDS ORDERED: VITC500 PO (07:34)
[2017-04-21] MEDS ORDERED: DOCU-299 PO ×2 (07:34→15:00)
[2017-04-21] MEDS ORDERED: LACT10CA1 PO (07:34)
[2017-04-21] MEDS ORDERED: NORC10 PO ×3 (07:34→15:09)
[2017-04-21] MEDS ORDERED: ASPI81CT95 PO (07:34)
[2017-04-21] MEDS ORDERED: FOLI1TAB90 PO (07:34)
[2017-04-21] MEDS ORDERED: LEVO750T2 PO (07:34)
[2017-04-21] MEDS ORDERED: AMLO5TAB4 PO (07:34)
[2017-04-21 08:00] VITALS: BP 119/69
[2017-04-21] MEDS: HYDROcodone/APAP 10/325 MG 1 TAB TAB PO PRN (08:21)
[2017-04-21] MEDS: METOPROLOL SUCCINATE 50 MG TABER PO SCH (08:22)
[2017-04-21] MEDS: CITALOPRAM 20 MG TAB PO SCH (08:22)
[2017-04-21] MEDS: ASPIRIN 81 MG TAB.CHEW PO SCH (08:22)
[2017-04-21] MEDS: LACTOBACILLUS RHAMNOSUS GG 1 EACH CAP PO SCH (08:22)
[2017-04-21] MEDS: FOLIC ACID 1 MG TAB PO SCH (08:22)
[2017-04-21] MEDS: ASCORBIC ACID 500 MG TAB PO SCH (08:22)
[2017-04-21] MEDS: LEVOFLOXACIN 750 MG/D5W PREMIX 150 ML IV SCH (08:33)
--- NOTE | 2017-04-21 08:33 | NUR ---
DUE MEDICATION GIVEN, PT TOLERATED WELL, CALL LIGHT IS WITHIN REACH.
--- NOTE | 2017-04-21 09:04 | NUR ---
CM NOTE INFORMED REANNA OF [facility]# (c) [phone] RE: ORDER FOR PATIENT'S DISCHARGE TODAY. DISCHARGE ORDER FAXED TO [facility] FAX# [phone]
--- NOTE | 2017-04-21 11:00 | NUR ---
PT RESTING IN BED, READING A MAGAZINE, CALL LIGHT IS WITHIN REACH.
--- NOTE | 2017-04-21 13:00 | NUR ---
WOUND CARE DONE AT THIS TIME, DRESSING CHANGED, MINIMAL SEROUS DRAINAGE, PT TOLERATED WELL, WILL CONTINUE TO MONITOR.
[2017-04-21] MEDS: THERAHONEY GEL 42.5 GM TP SCH (14:00)
[2017-04-21] MEDS ORDERED: LEVO750T51 PO (15:00)
[2017-04-21] MEDS ORDERED: CITA20TA7 PO (15:00)
--- NOTE | 2017-04-21 15:55 | NUR ---
DISCHARGE INSTRUCTIONS GIVEN, ID WRIST BAND REMOVED, IV REMOVED, CATHETER TIP INTACT. PT STABLE UPON DISCHARGE ACCOMPANIED BY HER FRIEND.
== END 2017-04-21 15:55 | disposition home health service (06) | DRG 622 ==
LOC: MED 15:51 → INTOOBSV 18:26 → UNDOADMOB 18:26 → MTU 18:26 → OBSVTOIN 18:26 → MTU 19:15 → OBSVTOIN 04-15 08:22 → MTU 04-15 08:22
PROVIDERS: ADMIT Family Medicine; ATTEND Family Medicine
PROC: 0JBP0ZZ Excision of Left Lower Leg Subcutaneous Tissue and Fascia, Open Approach (ICD-10-PCS; principal; 2017-04-15)
DX: E11.622 Type 2 diabetes mellitus with other skin ulcer (principal); E43 Unspecified severe protein-calorie malnutrition; L89.892 Pressure ulcer of other site, stage 2; N17.0 Acute kidney failure with tubular necrosis; L03.116 Cellulitis of left lower limb; E87.1 Hypo-osmolality and hyponatremia; I10 Essential (primary) hypertension; D58.0 Hereditary spherocytosis; D47.3 Essential (hemorrhagic) thrombocythemia; E02 Subclinical iodine-deficiency hypothyroidism; F32.9 Major depressive disorder, single episode, unspecified; D50.9 Iron deficiency anemia, unspecified; E78.5 Hyperlipidemia, unspecified; E11.51 Type 2 diabetes mellitus with diabetic peripheral angiopathy without gangrene; Z86.73 Personal history of transient ischemic attack (TIA), and cerebral infarction without residual deficits; Z88.6 Allergy status to analgesic agent; Z82.49 Family history of ischemic heart disease and other diseases of the circulatory system; Z68.23 Body mass index [BMI] 23.0-23.9, adult
CPT/HCPCS: 36415; 71010; 80048; 80053; 80305; 81003; 82150; 82728; 83036; 83540; 83605; 83690; 83735; 83880; 83891; 83900; 83909; 83912; 84100; 84436; 84439; 84443; 84479; 84484; 85025; 85384; 85610; 85651; 85730; 86140; 87040; 87070; 87081; 87086; 87186; 90658; 93005; 93925; 93970; 96361; 96374; 99285; G0378; J1644; J1885; J1956; J2001; J2270; J2916; J3490; J7030; J7060; Q0092

== ENCOUNTER 2018-03-07 06:29 | Inpatient (IN) | payer OTHER, BC ==
[~2018-03-07] VITALS: Ht 160 cm; Wt 71.7 kg
[~2018-03-07 06:29] MED LIST changes: -ACET-8386 PO; +AMLO5TAB4 PO; +ASPI81CT95 PO; +CITA-71 PO; -CITA20TA15 PO; -CLIN300C2 PO; -FERR325E14 PO; -FOLI1TAB19 PO; +FOLI1TAB90 PO; -LACT10CA PO; +LACT10CA1 PO; +LEVO750T51 PO; +NORC10 PO; +Therahoney Gel TP; +VITC500 PO
[2018-03-07 06:33] VITALS: BP 172/90
--- NOTE | 2018-03-07 06:33 | NUR ---
TO BED # 12 AMBULATORY, REPORT GIVEN TO SUNNY PAINTER
--- NOTE | 2018-03-07 06:33 | NUR ---
68/F CAME IN W C/O SOB X 1 WEEK WORSENED LAST NIGHT. PT NOTED WITH WHEEZING. ALSO C/O CHEST PAIN, NONPROVOKED, NONRADIAITING X 2 WEEKS WORSENED LAST NIGHT. PT ABLE TO SPEAK AT FULL LENGTH WITHOUT DIFFICULTY, NO ACCESSORY MUSCLE USE. SKIN IS WARM AND DRY. DENIES N/V. BLE NOTED WITH +2 PITTING EDEMA. WOUND PRESENT ON ARRIVAL TO LATERAL LEFT LEG, PER PT "MY CAT SCRATCHED ME BACK IN APRIL ", PT REPORTS SHE SEES WOUND MD. PMH: ANEMIA, HTN, BRAIN ANEURYSM
--- NOTE | 2018-03-07 06:51 | NUR ---
EKG PERFORMED AT BEDSIDE, PT COVERED IN GOWN AND BLANKET, FAMILY MEMBER PRESENT
--- NOTE | 2018-03-07 07:08 | NUR ---
GAVE REPORT TO LEONEL PAINTER
[2018-03-07] MEDS ORDERED: ALBUTEROL 0.083% 2.5 MG/3 ML NEBU INH ONE (07:25)
[2018-03-07] MEDS ORDERED: IPRATROPIUM 0.02% 0.5 MG/2.5 ML NEBU INH ONE (07:25)
--- NOTE | 2018-03-07 07:40 | NUR ---
RT AT BEDSIDE
[2018-03-07 08:10] LABS: MEAN CORPUSCULAR HEMOGLOBIN 17 pg (27-31); MEAN CORPUSCULAR HGB CONC 29 g/dL (33-37); MEAN CORPUSCULAR VOLUME 57.5 fL (80-94); PLATELET COUNT (AUTO) 482 K/uL (140-450); RED BLOOD CELL COUNT(AUTO) 2.97 MIL/uL (4.20-5.40); RED CELL DISTRIBUTION WIDTH 22.6 % (11.6-13.7); WHITE BLOOD COUNT (AUTO) 9.5 K/uL (4.8-10.8)
[2018-03-07 08:19] LABS: ANION GAP 8.9 (8-16); CARBON DIOXIDE 24.1 mmol/L (21-32); CREATININE 0.6 mg/dL (0.6-1.3)
[2018-03-07 08:22] LABS: PROTHROMBIN TIME 9.7 secs (10.8-13.4)
[2018-03-07 08:25] LABS: ALBUMIN 2.2 g/dL (3.4-5.0); TOTAL BILIRUBIN 0.1 mg/dL (0.0-1.0)
[2018-03-07] MEDS ORDERED: KETOROLAC 15 MG/ML VIAL IVP ONE (08:40)
--- NOTE | 2018-03-07 08:40 | NUR ---
PT C/O PAIN TO BLE, HEADACHE, BODY PAIN---MD NOTIFIED
[2018-03-07 08:43] LABS: HEMATOCRIT 17.1 % (36-48)
[2018-03-07] MEDS ORDERED: NITROGLYCERIN 2% 1 GM PKT TP ONE (09:05)
[2018-03-07] MEDS ORDERED: NACL 0.9% 1,000 ML IV SCH (09:26)
[2018-03-07] MEDS ORDERED: ONDANSETRON 4 MG/2 ML VIAL IM/IVP PRN (09:30)
[2018-03-07] MEDS ORDERED: ACETAMINOPHEN 325 MG TAB PO PRN (09:30)
[2018-03-07] MEDS ORDERED: HYDROcodone/APAP 7.5/325 MG 1 TAB PO PRN (09:30)
[2018-03-07] MEDS ORDERED: DOCUSATE SODIUM 100 MG GELCAP PO PRN (09:30)
[2018-03-07] MEDS ORDERED: ASPIRIN 81 MG TAB.CHEW ONE (09:35)
[2018-03-07] MEDS ORDERED: [UNRECOGNIZED DRUG - CODE] PO (09:52)
[2018-03-07] MEDS ORDERED: SIMV40TA1 PO (09:52)
[2018-03-07] MEDS ORDERED: ACETAMINOPHEN EXTRA STRENGTH 500 MG TAB PO SCH (10:00)
[2018-03-07] MEDS ORDERED: LORATADINE 10 MG TAB PO SCH (10:00)
[2018-03-07] MEDS ORDERED: FUROSEMIDE 40 MG/4 ML VIAL IVP SCH (10:05)
--- NOTE | 2018-03-07 10:06 | NUR ---
Pt report given to CECI PAINTER. Transfer of care at this time TO TELE ROOM 125-B [facility]IA [facility]
[2018-03-07 10:10] VITALS: BP 162/77
--- NOTE | 2018-03-07 10:10 | NUR ---
PT WAS ADMITTED TO UNIT FROM ER. PT AWAKE AND ALERT. PT ON 2L O2 VIA NC. SOB UPON EXERTION NOTED.100% O2 SAT AT THIS TIME. BLE +1 PITTING EDEMA NOTED. OPEN WOUND NOTED ON THE LLE. NO DRAINAGE, WOUND COVERED WITH CLEAN DRESSING. PT PLACED ON TELEMETRY, BED LOW WITH CALL LIGHT WITHIN REACH. DR FOSETR PRESENT IN THE ROOM, EVALUATING THE PT.
--- NOTE | 2018-03-07 11:10 | NUR ---
BLOOD TRANSFUSION INITIATED.
[2018-03-07] MEDS ORDERED: SODIUM FERRIC GLUCONATE 125 MG in NACL 0.9% 100 ML IV SCH (11:25)
--- NOTE | 2018-03-07 11:45 | NUR ---
BLOOD TRANSFUSION IN PROGRESS. PT ASLEEP IN BED, NO S/S OF DISTRESS NOTED.
--- NOTE | 2018-03-07 12:00 | NUR ---
PT VOIDED, URINE SAMPLE COLLECTED AND SENT TO LAB.
[2018-03-07] MEDS ORDERED: THERAHONEY GEL 42.5 GM TP PRN (12:05)
[2018-03-07] MEDS ORDERED: LISINOPRIL 20 MG TAB PO SCH (12:10)
[2018-03-07] MEDS ORDERED: CARVEDILOL 3.125 MG TAB PO SCH (12:52)
[2018-03-07 13:33] LABS: EOSINOPHILS % (MANUAL) 5 % (0-4); LYMPHOCYTES % (MANUAL) 14 % (20-46); MONOCYTES % (MANUAL) 3 % (5-12)
[2018-03-07 14:40] LABS: APPEARANCE,URINE CLEAR (CLEAR); BILIRUBIN,URINE NEGATIVE (NEGATIVE); BLOOD, URINE 2+ (NEGATIVE); COLOR,URINE OTHER (YELLOW); LEUKOCYTE ESTERASE ,URINE NEGATIVE (NEGATIVE); NITRITE, URINE NEGATIVE (NEGATIVE); UGLUCOSE NEGATIVE (NEGATIVE)
[2018-03-07 14:44] LABS: BARBITURATE, URINE NEG. ng/ml (NEG <=200); BENZODIAZEPINE, URINE NEG. ng/mL (NEG <=200); CANNABINOID, URINE NEG. ng/mL (NEG <=50); COCAINE, URINE NEG. ng/mL (NEG <=300); OPIATE, URINE NEG. ng/mL (NEG <=2000); PHENCYCLIDINE SCREEN,URINE NEG. ng/mL (NEG <=25)
[2018-03-07 14:50] LABS: RBC,URINE 3-10 (FEW) /HPF (0-5); WBC,URINE 0-5 (RARE) /HPF (0-5)
--- NOTE | 2018-03-07 15:00 | NUR ---
FIRST UNIT OF BLOOD TRANSFUSION FINISHED. NO S/S OF DISTRESS, PT AMBULATED TO BATHROOM TO VOID.
[2018-03-07] MEDS: PIPER/TAZO 3.375GM/D5W PREMIX 50 ML IV SCH ×2 (15:14→21:44)
[2018-03-07 16:00] VITALS: BP 159/85
[2018-03-07 16:15] LABS: FREE T4 (FREE THYROXINE) 1.02 ng/dL (0.76-1.46); MAGNESIUM 1.9 mg/dL (1.8-2.4); PHOSPHORUS 2.8 mg/dL (2.5-4.9); THYROID STIMULATING HORMONE 5.39 uIU/mL (0.34-3.74)
--- NOTE | 2018-03-07 17:15 | NUR ---
PT LEFT THE UNIT FOR CT SCAN.
[2018-03-07] MEDS: ATORVASTATIN 20 MG TAB PO SCH (18:14)
--- NOTE | 2018-03-07 18:15 | NUR ---
SECOND UNIT OF BLOOD TRANSFUSION STARTED. WILL CONTINUE TO MONITOR.
--- NOTE | 2018-03-07 19:08 | NUR ---
PATIENT ON NC 4L AND STATES SHE IS SOB SAO2-99%, BS- CLEAR, RR-18, HR 59, B/P 158/84,PLACED ON V/M 50%AND PATIENT STATED SHE IS NO LONGER SOB, RR-16, BS-CLEAR, SAO2-100%. DR. DELEON ALSO EVALUATED AND DR. SARAVIA MADE AWARE
--- NOTE | 2018-03-07 19:30 | NUR ---
PATIENT REPORT GIVEN AT BEDSIDE. PATIENT ENDORSED IN STABLE CONDITION
--- NOTE | 2018-03-07 19:30 | NUR ---
RECEIVED PT IN STABLE CONDITION FROM AM NURSE. PT ON TELE MONITOR. WITH NO SOB NOTED. ON O2 VENTURI MASK 98% O2 SAT. SLEEPY BUT AROUSE EASILY WHEN NAME CALLED.ANSWERS QUESTION APPROPRIATELY WHEN ASKED. HAS BLOOD TRANSFUSION STILL INFUSING ON THE RT AC#20 . CLEAR AND PATENT. BEDREST. LEFT LOWER LEG WITH DRESSING AND ELASTIC BANDAGE ON. BED ON LOW POSITION, FREQUENT ROUND NEEDED. CALL LIGHT PLACED WITHIN EASY REACH. PLAN OF CARE DISCUSSED AND VERBALIZED UNDERSTANDING. WILL CONTINUE TO MONITOR.
[2018-03-07 20:00] VITALS: BP 159/81
[2018-03-07] MEDS ORDERED: KETOROLAC 15 MG/ML VIAL IM PRN (20:10)
--- NOTE | 2018-03-07 20:10 | NUR ---
PT C/O AGAIN OF HEADACHE 12/14. MADE AWARE WITH ORDER.
[2018-03-07] MEDS ORDERED: KETOROLAC 15 MG/ML VIAL ONE (20:38)
[2018-03-07] MEDS: CARVEDILOL 3.125 MG TAB PO SCH (21:00)
--- NOTE | 2018-03-07 21:44 | NUR ---
2ND UNIT OF BLOOD TRANSFUSION FINISHED. NO REACTION NOTED. LAB MADE AWARE ABOUT THE CBC TO BE DONE @2330 TONIGHT.
[2018-03-07] MEDS ORDERED: LISINOPRIL 10 MG TAB PO SCH (22:15)
--- NOTE | 2018-03-07 22:19 | NUR ---
DR. SARAVIA MADE AWARE ABOUT THE BP ELEVATED 169/92. WITH ORDER FOR ONE DOSE OF LISINOPRIL 1O MG PO ,GIVEN. WILL CONTINUE TO MONITOR.
[2018-03-07 23:58] LABS: BASOPHILS # (AUTO) 0.2 K/uL (0.00-0.22); HEMOGLOBIN 7.1 g/dL (12.0-16.0); LYMPHOCYTES # (AUTO) 1.2 K/uL (2.5-16.5); RED CELL DISTRIBUTION WIDTH 27.8 % (11.6-13.7); WHITE BLOOD COUNT (AUTO) 9.4 K/uL (4.8-10.8)
[2018-03-08] VITALS (7 sets, daily range): BP systolic 132–186; BP diastolic 59–99
[2018-03-08 00:04] LABS: BASOPHILS % (AUTO) 2.3 % (0.0-2.0); EOSINOPHILS # (AUTO) 0.5 K/uL (0-0.4); EOSINOPHILS % (AUTO) 4.8 % (0.0-4.0); HEMATOCRIT 23.4 % (36-48); LYMPHOCYTES % (AUTO) 12.6 % (20.5-51.1); MEAN CORPUSCULAR HEMOGLOBIN 19 pg (27-31); MEAN CORPUSCULAR HGB CONC 30 g/dL (33-37); MEAN CORPUSCULAR VOLUME 63.2 fL (80-94); MONOCYTES # (AUTO) 0.8 K/uL (0.8-1.0); MONOCYTES % (AUTO) 8.7 % (1.7-9.3); NEUTROPHILS # (AUTO) 6.7 K/uL (1.8-7.7); NEUTROPHILS % (AUTO) 71.6 % (42.2-75.2); PLATELET COUNT (AUTO) 462 K/uL (140-450)
--- NOTE | 2018-03-08 00:58 | NUR ---
PT BP STILL ELEVATED 186/95, HR-63 WITH O2 SAT 100 % WITH VENTURI MASK. PT IS WHEEZING . / MANJIT MADE AWARE ,CAME AND SEEN PT .WILL DO SOME ORDERS FOR STAT CXR,IVP SOLU MEDROL,TROPONIN AND ANOTHER DOSE OF LISINOPRIL.
[2018-03-08] MEDS ORDERED: LISINOPRIL 20 MG TAB PO SCH ×2 (01:30→09:00)
[2018-03-08] MEDS ORDERED: ALBUTEROL SULFATE/IPRATROPIU 3 ML SOL IH PRN (01:35)
--- NOTE | 2018-03-08 01:46 | NUR ---
DR. SARAVIA NOTIFIED OF PERSISTENT HYPERTENSION. PER , SHE WILL INPUT ORDER FOR IV HYDRALAZINE.
[2018-03-08] MEDS ORDERED: methylPREDNISolone SS 40 MG/ML VIAL IVP SCH (02:00)
[2018-03-08] MEDS ORDERED: LORazepam 2 MG/ML VIAL IM/IVP SCH (02:00)
[2018-03-08] MEDS ORDERED: HYDROCHLOROTHIAZIDE 25 MG TAB PO SCH (02:30)
[2018-03-08] MEDS ORDERED: cloNIDine 0.1 MG TAB PO SCH (02:30)
--- NOTE | 2018-03-08 02:35 | NUR ---
CATAPRESS 0.1MG & ORETIC 25MG ADMINISTERED PO. PT DROWSY BUT ABLE TO FOLLOW SIMPLE INSTRUCTIONS. DENIES ANY PAIN AT THIS TIME. VENTURI MASK IN PLACE WITH FIO2 @ 35%. WILL CONTINUE TO MONITOR.
[2018-03-08] MEDS: PIPER/TAZO 3.375GM/D5W PREMIX 50 ML IV SCH ×3 (04:54→20:36)
--- NOTE | 2018-03-08 04:55 | NUR ---
SLEEPING WELL AT THIS TIME. PT ON ROOM AIR. O2 SAT 93% AT THIS TIME. WILL CONTINUE TO MONITOR.
--- NOTE | 2018-03-08 05:30 | NUR ---
RT CAME AND MADE AWARE THAT PT REMOVED THE VENTURI MASK AND ON ROOM AIR O2 SAT 93%. SHE TRIED TO PUT 022L/NC BUT PT REFUSED THE WEAR THE O2, STILL 93%, NO SOB NOTED. WILL CONTINUE TO MONITOR.
--- NOTE | 2018-03-08 06:30 | NUR ---
RT AC IV ACCESS ACCIDENTALLY PULLED OUT BY PT WHILE GETTING UP TO GO TO BATHROOM. PT VOIDED ON THE FLOOR, MODERATE AMOUNT. PT ASSISTED BACK TO BED, ADL CARE PROVIDED. PT DENIES ANY DISCOMFORT. RT WRIST IV ACCESS ESTABLISHED & SALINE-LOCKED. REINSTRUCTED PT TO USE CALL LIGHT FOR ASSISTANCE WITH ADL NEEDS. PT VERBALIZED UNDERSTANDING.
--- NOTE | 2018-03-08 07:04 | NUR ---
NO BM DURING THE NIGHT. STILL NEED STOOL OB. WILL ENDORSE TO AM NURSE.
[2018-03-08] MEDS: ALBUTEROL SULFATE/IPRATROPIU 3 ML SOL IH SCH ×3 (07:15→18:54)
--- NOTE | 2018-03-08 07:15 | NUR ---
PATIENT REFUSED HHN TX OF DUONEB. HR 62 RR 18 SPO2 95 ON ROOM AIR. PATIENT HAS A NONPRODUCTIVE COUGH.
--- NOTE | 2018-03-08 07:25 | NUR ---
REPORT GIVEN TO AM SHIFT NURSE FOR CONTINUITY OF CARE. PT LYING COMFORTABLY IN BED, ALERT & AWAKE, RESPIRATIONS EVEN & UNLABORED, NO SIGNS OF DISTRESS. FALL PRECAUTIONS IN PLACE.
--- NOTE | 2018-03-08 07:26 | NUR ---
REPORT RECEIVED FROM KITCHEN FOOD ASSEMBLER, PT SLEEPING QUIETLY IN NAD, RESP EVEN UNLABORED ON RA, SKIN WARM DRY COLOR PALE, PT AROUSES EASILY BUT DROWSY, PLAN OF CARE REVIEWED, NO IMMEDIATE NEEDS AT THIS TIME, ALL SAFETY MEASURES IN PLACE, WILL CONTINUE TO MONITOR.
--- NOTE | 2018-03-08 07:40 | NUR ---
PT UP TO BATHROOM ON HER OWN, RETURNED TO BED, BED ALARM ON, PT DENIES ANY NEEDS AT THIS TIME.
[2018-03-08] MEDS ORDERED: CARVEDILOL 3.125 MG TAB PO SCH (09:00)
[2018-03-08] MEDS ORDERED: ASPIRIN 325 MG TABEC PO SCH (09:00)
[2018-03-08] MEDS: CARVEDILOL 3.125 MG TAB PO SCH ×2 (09:04→16:39)
[2018-03-08] MEDS: FUROSEMIDE 40 MG/4 ML VIAL IVP SCH ×2 (09:05→16:39)
[2018-03-08] MEDS: LISINOPRIL 20 MG TAB PO SCH (09:05)
[2018-03-08] MEDS: HYDROCHLOROTHIAZIDE 25 MG TAB PO SCH (09:05)
[2018-03-08] MEDS ORDERED: SODIUM FERRIC GLUCONATE 125 MG in NACL 0.9% 100 ML IV SCH (09:30)
[2018-03-08 10:01] LABS: HEMATOCRIT 25.4 % (36-48); HEMOGLOBIN 7.6 g/dL (12.0-16.0); MEAN CORPUSCULAR HEMOGLOBIN 19 pg (27-31); MEAN CORPUSCULAR HGB CONC 30 g/dL (33-37); MEAN CORPUSCULAR VOLUME 63.1 fL (80-94); PLATELET COUNT (AUTO) 482 K/uL (140-450); RED BLOOD CELL COUNT(AUTO) 4.02 MIL/uL (4.20-5.40); RED CELL DISTRIBUTION WIDTH 27.4 % (11.6-13.7); WHITE BLOOD COUNT (AUTO) 11.9 K/uL (4.8-10.8)
[2018-03-08 10:07] LABS: ANION GAP 11.9 (8-16); CARBON DIOXIDE 25.9 mmol/L (21-32); CREATININE 0.7 mg/dL (0.6-1.3); POTASSIUM 3.8 mmol/L (3.5-5.1)
[2018-03-08 10:10] LABS: MAGNESIUM 1.7 mg/dL (1.8-2.4); PHOSPHORUS 3.3 mg/dL (2.5-4.9)
[2018-03-08 10:15] LABS: BASOPHILS % (MANUAL) 0 % (0-2); EOSINOPHILS % (MANUAL) 0 % (0-4); LYMPHOCYTES % (MANUAL) 4 % (20-46); MONOCYTES % (MANUAL) 0 % (5-12)
[2018-03-08] MEDS ORDERED: amLODIPine 5 MG TAB PO SCH (10:24)
--- NOTE | 2018-03-08 10:59 | NUR ---
PT UP TO BATHROOM STEADY GAIT, IV IRON INFUSING SITE WNL, PT DENIES PAIN OR DISCOMFORT, RESP EVEN UNLABORED, CALL SIMMONS WITHIN REACH, PT DENIES ANY IMMEDIATE NEEDS, WILL CONTINUE TO MONTIOR.
[2018-03-08] MEDS ORDERED: MAGNESIUM OXIDE 400 MG TAB PO SCH (11:00)
[2018-03-08] MEDS ORDERED: MAG SULF 2000 MG/WATER PREMIX 50 ML IV ONE (12:00)
--- NOTE | 2018-03-08 12:08 | NUR ---
PT RESTING QUIETLY IN NAD, RESP EVEN UNLABORED, SKIN WARM DRY COLOR WNL, PT DENIES PAIN OR DISCOMFORT, NO IMMEIDATE NEEDS AT THIS TIME, WILL CONTINUE TO MOTNIOR
--- NOTE | 2018-03-08 13:02 | NUR ---
PATIENT REFUSED HHN TREATMENT BECAUSE SHE WAS SLEEPING. ADVISED THAT I WOULD JUST ASSESS HER QUICKLY. SPO2 84% HEART RATE 67. PATIENT DID NOT APPEAR TO BE IN ANY RESPIRATORY DISTRESS OR SOB BUT PLACED ON NASAL CANNULA AT 2L/M. SPO2 INCREASED TO 94%. B/S: DIMINISHED. ADVISED RN. WILL CONTINUE TO MONITOR.
[2018-03-08] MEDS: ATORVASTATIN 20 MG TAB PO SCH (16:40)
--- NOTE | 2018-03-08 16:45 | NUR ---
DUE MEDS GIVEN, PT KEIVN WELL, SLEEPY, BUT AROUSES EASILY TO VOICE, DENIES PAIN OR DISCOMFORT, WILL CONTINUE TO MONTIOR
--- NOTE | 2018-03-08 18:45 | NUR ---
PT SITTING UP EATING DINNER, RESP EVEN UNLABORED, STATES SHE FEELS MUCH BETTER, RT AT BEDSIDE FOR NEB TREATMENT
--- NOTE | 2018-03-08 19:11 | NUR ---
REPORT GIVEN TO ADDICTION SPECIALIST NURSE LIVE/JAYNA, PT SITTING UP AT SIDE OF BED, APPEARS IN NAD, SPEAKS CLEARLY WITHOUT SOB OR DIFF BREATHING, ALL SAFETY MEASURES IN PLACE.
--- NOTE | 2018-03-08 19:12 | NUR ---
REPORT RECEIVED FROM SUPERVISING NURSE NURSE. PT LYING COMFORTABLY IN BED, ALERT & AWAKE. NO SIGNS OF DISTRESS. DENIES ANY DISCOMFORT. CALL LIGHT WITHIN REACH. FALL PRECAUTIONS IN PLACE. WILL CONTINUE TO MONITOR. Addendum: 03/09/18 at 0413 by Mel Sosa RN CORRECTION: REPORT RECEIVED FROM AM SHIFT NURSE.
[2018-03-08] MEDS: methylPREDNISolone SS 40 MG/ML VIAL IVP SCH (20:36)
--- NOTE | 2018-03-08 20:37 | NUR ---
DUE MEDS GIVEN AT THIS TIME. PT SITTING UP IN BED, ALERT & VERBALLY RESPONSIVE. DENIES ANY DISCOMFORT, NO SIGNS OF DISTRESS. FALL PRECAUTIONS IN PLACE.
--- NOTE | 2018-03-08 23:30 | NUR ---
PT SLEEPING COMFORTABLY IN BED, AROUSABLE BY VOICE. NO SIGNS OF DISTRESS. DENIES ANY PAIN. BEDSIDE COMMODE IN PLACE & ENCOURAGED PT TO CALL FOR NURSE TO ASSIST WITH AMBULATION/TRANSFERS. PT VERBALIZED AGREEMENT. CALL LIGHT WITHIN REACH.
[2018-03-09] VITALS: BP 150/66
--- NOTE | 2018-03-09 01:11 | NUR ---
BED ALARM WENT OFF, IMMEDIATELY CHECKED ON PT. PT SITTING UP AT EDGE OF BED, STATES SHE NEEDS TO USE THE BEDSIDE COMMODE. STANDBY ASSIST PROVIDED. PT ABLE TO PIVOT TRANSFER FROM BED TO COMMODE SAFELY. VOIDED MOD AMOUNT OF CLEAR YELLOW URINE. PERICARE DONE BY PT INDEPENDENTLY. TRANSFERRED BACK TO BED WITH STANDBY ASSIST. BED ALARM ARMED. REINFORCED TEACHING TO PT TO CALL NURSE FOR ASSISTANCE WITH TRANSFERS. VERBALIZED AGREEMENT. CALL LIGHT WITHIN REACH. FALL PRECAUTIONS IN PLACE.
--- NOTE | 2018-03-09 03:21 | NUR ---
PT SLEEPING COMFORTABLY IN BED, AROUSABLE BY VOICE, RESPIRATIONS EVEN & UNLABORED, DENIES ANY DISCOMFORT, DENIES NEED TO USE COMMODE AT THIS TIME. ENCOURAGED PT TO CALL FOR ASSIST WITH TRANSFER. VERBALIZED AGREEMENT. BED ALARM ON, CALL LIGHT WITHIN REACH.
[2018-03-09 04:00] VITALS: BP 154/62
[2018-03-09] MEDS: PIPER/TAZO 3.375GM/D5W PREMIX 50 ML IV SCH ×3 (04:41→20:01)
--- NOTE | 2018-03-09 05:28 | NUR ---
PT SLEEPING COMFORTABLY IN BED, RESPIRATIONS EVEN & UNLABORED. IV NS INFUSING @ 5ML/HR TKVO. NO SIGNS OF COMPLICATIONS TO RT WRIST IV ACCESS SITE. FALL PRECAUTIONS IN PLACE: BED ALARM ON, CALL LIGHT WITHIN REACH, YELLOW GOWN ON, FALL RISK WRISTBAND IN PLACE TO RT ARM, ROOM CLEARED OF CLUTTER. FREQUENT ROUNDS DONE.
[2018-03-09] MEDS: ALBUTEROL SULFATE/IPRATROPIU 3 ML SOL IH SCH ×3 (07:03→19:13)
--- NOTE | 2018-03-09 07:10 | NUR ---
REPORT GIVEN TO AM SHIFT NURSE. PT LYING COMFORTABLY IN BED.
--- NOTE | 2018-03-09 07:11 | NUR ---
RECEIVED REPORT FROM UTILITY ASSEMBLER NURSE. PATIENT SITTING IN BED COMFORTABLY. NO DISTRESS NOTED. DENIES ANY PAIN AT THIS TIME. RESPIRATIONS EVEN, UNLABORED, ON ROOM AIR. AAOX4, CALM, COOPERATIVE, SKIN COLOR APPROPRIATE TO ETHNICITY, WARM TO TOUCH. LUNGS CTA ON ALL LOBES. ABDOMEN SOFT, NON-DISTENDED. IV SITE INTACT, PATENT, AND INFUSING IVF PER MD ORDERS. REVIEWED PLAN OF CARE WITH PATIENT. PATIENT VERBALIZED UNDERSTANDING. SAFETY MEASURES IN PLACE, CALL LIGHT WITHIN REACH. WILL CONTINUE TO MONITOR.
[2018-03-09 08:00] VITALS: BP 173/79
[2018-03-09 08:20] LABS: BASOPHILS # (AUTO) 0.1 K/uL (0.00-0.22); BASOPHILS % (AUTO) 0.6 % (0.0-2.0); HEMATOCRIT 25.8 % (36-48); HEMOGLOBIN 7.7 g/dL (12.0-16.0); LYMPHOCYTES # (AUTO) 1.1 K/uL (2.5-16.5); LYMPHOCYTES % (AUTO) 9.2 % (20.5-51.1); MEAN CORPUSCULAR HEMOGLOBIN 19 pg (27-31); MEAN CORPUSCULAR HGB CONC 30 g/dL (33-37); MEAN CORPUSCULAR VOLUME 63.6 fL (80-94); MONOCYTES # (AUTO) 0.4 K/uL (0.8-1.0); MONOCYTES % (AUTO) 3.3 % (1.7-9.3); NEUTROPHILS # (AUTO) 10.2 K/uL (1.8-7.7); NEUTROPHILS % (AUTO) 86.9 % (42.2-75.2); PLATELET COUNT (AUTO) 527 K/uL (140-450); RED BLOOD CELL COUNT(AUTO) 4.05 MIL/uL (4.20-5.40); RED CELL DISTRIBUTION WIDTH 28.2 % (11.6-13.7); WHITE BLOOD COUNT (AUTO) 11.8 K/uL (4.8-10.8)
[2018-03-09] MEDS: HYDROCHLOROTHIAZIDE 25 MG TAB PO SCH (08:22)
[2018-03-09] MEDS: amLODIPine 5 MG TAB PO SCH (08:22)
[2018-03-09] MEDS: MAGNESIUM OXIDE 400 MG TAB PO SCH (08:23)
[2018-03-09] MEDS: CARVEDILOL 3.125 MG TAB PO SCH ×2 (08:23→18:20)
[2018-03-09] MEDS: LISINOPRIL 20 MG TAB PO SCH (08:23)
[2018-03-09] MEDS: FUROSEMIDE 20 MG/2 ML VIAL IVP SCH ×2 (08:24→20:24)
--- NOTE | 2018-03-09 08:32 | NUR ---
PATIENT SITTING DOWN IN BED COMFORTABLY. NO DISTRESS NOTED. AAOX4. SCHEDULED MEDICATIONS DUE GIVEN. SAFETY MEASURES IN PLACE, CALL LIGHT WITHIN REACH. WILL CONTINUE TO MONITOR.
[2018-03-09] MEDS ORDERED: MAGNESIUM OXIDE 400 MG TAB PO SCH (09:00)
[2018-03-09 09:12] LABS: ANION GAP 10.8 (8-16); CARBON DIOXIDE 27.9 mmol/L (21-32); POTASSIUM 3.7 mmol/L (3.5-5.1)
[2018-03-09 09:16] LABS: MAGNESIUM 2.3 mg/dL (1.8-2.4); PHOSPHORUS 4.3 mg/dL (2.5-4.9)
--- NOTE | 2018-03-09 10:02 | NUR ---
PATIENT HAS BEEN SCREENED AND CATEGORIZED HIGH NUTRITION RISK. PATIENT WILL BE SEEN WITHIN 1-2 DAYS OF ADMISSION. 03/08/18 03/09/18 JASON KENNY MBA, RD
--- NOTE | 2018-03-09 10:45 | NUR ---
PATIENT LYING DOWN IN BED SLEEPING, AROUSABLE BY VOICE. NO DISTRESS NOTED DENIES ANY PAIN. SCHEDULED MEDICATIONS DUE GIVEN. SAFETY MEASURES IN PLACE, CALL LIGHT WITHIN REACH. WILL CONTINUE TO MONITOR.
[2018-03-09 12:00] VITALS: BP 146/73
--- NOTE | 2018-03-09 12:23 | NUR ---
AWAKE AND ALERT NO EVIDENCE OF PULMONARY DISTRESS NOTED PATIENT WITH LUNCH TRAY AT THIS TIME EXCELLENCE COACH TO ATTEMPT [facility] THERAPY AT A LATER TIME
--- NOTE | 2018-03-09 12:45 | NUR ---
PATIENT SITTING IN BED WITH LUNCH TRAY IN FRONT. NO DISTRESS NOTED. DENIES ANY PAIN. SCHEDULED MEDICATIONS DUE GIVEN. SAFETY MEASURES IN PLACE, CALL LIGHT WITHIN REACH. WILL CONTINUE TO MONITOR.
--- NOTE | 2018-03-09 15:00 | NUR ---
PATIENT LYING DOWN IN BED READING A BOOK. NO DISTRESS NOTED. CONDITION UNCHANGED. WILL CONTINUE TO MONITOR.
--- NOTE | 2018-03-09 15:37 | NUR ---
03/09/18 RD INITIAL ASSESSMENT COMPLETED PLEASE REFER TO NUTRITION ASSESSMENT UNDER CARE ACTIVITY FOR ESTIMATED NUTRITIONAL NEEDS. RD RECOMMENDATIONS: 1. RECOMMEND CONTINUE CARDIAC DIET 2. F/U 3-5 DAYS; MODERATE RISK. JASON KENNY MBA, RD
[2018-03-09 16:00] VITALS: BP 160/69
[2018-03-09] MEDS: ATORVASTATIN 20 MG TAB PO SCH (18:20)
--- NOTE | 2018-03-09 18:21 | NUR ---
PATIENT SITTING IN BED WATCHING TV. NO DISTRESS NOTED. SCHEDULED MEDICATIONS DUE GIVEN. WILL CONTINUE TO MONITOR.
--- NOTE | 2018-03-09 19:15 | NUR ---
GAVE REPORT TO HAY FARMER NURSE FOR CONTINUITY OF CARE. PATIENT IN STABLE CONDITION.
--- NOTE | 2018-03-09 19:20 | NUR ---
RECEIVED PATIENT AWAKE LYING COMFORTABLE ON BED. FALL PRECAUTION APPLIED. EXPLAINED PLAN OF CARE AND VERBALIZED UNDERSTANDING. CALL LIGHT WITHIN REACH. WILL CONTINUE TO MONITOR.
[2018-03-09 20:00] VITALS: BP 134/68
[2018-03-09] MEDS: methylPREDNISolone SS 40 MG/ML VIAL IVP SCH (20:23)
--- NOTE | 2018-03-09 21:00 | NUR ---
MEDICATION GIVEN TOLERATED WELL. NO S/S OF DISTRESS NOTED. CALL LIGHT WITHIN REACH. ALL NEEDS ATTENDED. WILL CONTINUE TO MONITOR.
[2018-03-10] VITALS: BP 153/76
--- NOTE | 2018-03-10 00:02 | NUR ---
V/S TAKEN AND RECORDED. NO S/S OF DISTRESS NOTED. CALL LIGHT WITHIN REACH.
--- NOTE | 2018-03-10 03:00 | NUR ---
SEEN PATIENT RESTING COMFORTABLE ON BED. NO S/S OF DISTRESS NOTED AT THIS TIME. CALL LIGHT WITHIN REACH. FALL PRECAUTION APPLIED.
[2018-03-10 04:00] VITALS: BP 144/72
[2018-03-10] MEDS: PIPER/TAZO 3.375GM/D5W PREMIX 50 ML IV SCH (04:12)
[2018-03-10] MEDS: ALBUTEROL SULFATE/IPRATROPIU 3 ML SOL IH SCH (07:13)
--- NOTE | 2018-03-10 07:17 | NUR ---
ASSUMED CONTINUITY OF CARE. NO SIGNS AND SYMPTOMS OF ACUTE DISTRESS NOTED. INITIAL ASSESSMENT DONE. KEEP COMFORTABLE ON BED. EXPLAINED DIAGNOSIS, PLAN OF CARE, PAIN MANAGEMENT TEACHING, USE OF CALL LIGHT/BED/TV/BATHROOM. VERBALIZED UNDERSTANDING. FALL PRECAUTION APPLIED. CALL LIGHT WITHIN REACH.
--- NOTE | 2018-03-10 07:25 | NUR ---
ENDORSEMENT GIVEN TO AM SHIFT NURSE AT BEDSIDE FOR CONTINUITY OF CARE. PATIENT IN STABLE CONDITION.
--- NOTE | 2018-03-10 07:26 | NUR ---
Patient's Plan of Care was discussed and reviewed with PROFESSOR OF BUSINESS: AGUSTÍN DRUMMOND
[2018-03-10 07:52] LABS: MAGNESIUM 2.1 mg/dL (1.8-2.4); PHOSPHORUS 3.6 mg/dL (2.5-4.9)
[2018-03-10 07:54] LABS: BASOPHILS % (AUTO) 0.4 % (0.0-2.0); HEMOGLOBIN 7.8 g/dL (12.0-16.0); LYMPHOCYTES % (AUTO) 8.9 % (20.5-51.1); MEAN CORPUSCULAR HEMOGLOBIN 20 pg (27-31); MEAN CORPUSCULAR HGB CONC 31 g/dL (33-37); MEAN CORPUSCULAR VOLUME 63.7 fL (80-94); MONOCYTES # (AUTO) 0.5 K/uL (0.8-1.0); MONOCYTES % (AUTO) 4.2 % (1.7-9.3); NEUTROPHILS # (AUTO) 9.4 K/uL (1.8-7.7); NEUTROPHILS % (AUTO) 86.5 % (42.2-75.2); PLATELET COUNT (AUTO) 515 K/uL (140-450); RED BLOOD CELL COUNT(AUTO) 3.93 MIL/uL (4.20-5.40); RED CELL DISTRIBUTION WIDTH 29.2 % (11.6-13.7); WHITE BLOOD COUNT (AUTO) 10.9 K/uL (4.8-10.8)
[2018-03-10 08:00] VITALS: BP 155/71
[2018-03-10] MEDS ORDERED: FERR324T11 PO (08:00)
[2018-03-10] MEDS ORDERED: FERROUS GLUCONATE 324 MG TAB PO SCH (08:00)
[2018-03-10] MEDS ORDERED: ASCO500T45 PO (08:00)
--- NOTE | 2018-03-10 08:02 | NUR ---
PHYSICAL THERAPIST CAME FOR PT. EVAL AND TREATMENT. TOLERATED WELL.
[2018-03-10] MEDS: CARVEDILOL 3.125 MG TAB PO SCH (08:16)
[2018-03-10] MEDS: amLODIPine 5 MG TAB PO SCH (08:17)
[2018-03-10] MEDS: HYDROCHLOROTHIAZIDE 25 MG TAB PO SCH (08:17)
[2018-03-10] MEDS: MAGNESIUM OXIDE 400 MG TAB PO SCH (08:17)
[2018-03-10] MEDS: LISINOPRIL 20 MG TAB PO SCH (08:18)
[2018-03-10] MEDS: FUROSEMIDE 20 MG/2 ML VIAL IVP SCH (08:29)
[2018-03-10 08:52] LABS: ANION GAP 12.4 (8-16); CARBON DIOXIDE 28.9 mmol/L (21-32); CREATININE 0.9 mg/dL (0.6-1.3); POTASSIUM 3.3 mmol/L (3.5-5.1)
[2018-03-10] MEDS ORDERED: ASCORBIC ACID 500 MG TAB PO SCH (09:00)
[2018-03-10] MEDS ORDERED: LEVO750T2 PO (09:22)
[2018-03-10] MEDS ORDERED: AMLO5TAB PO (09:24)
[2018-03-10] MEDS ORDERED: POTASSIUM CHLORIDE 10 MEQ TABER PO SCH (09:30)
--- NOTE | 2018-03-10 09:30 | NUR ---
PER DR. PATTON PT. WOUND DRESSING ON LLE CAN BE CHANGE WITH 4 X 4 DRY DRESSING AND COVER WITH KARLEX.
--- NOTE | 2018-03-10 09:45 | NUR ---
EXPLAINED ABOUT MD D/C ORDER, D/C INSTRUCTIONS AND TEACHING, DR. HOWARD AND DR. WEBBER FOLLOW UP APPOINTMENT, DISEASE MANAGEMENT TEACHING, WOUND CARE, PAIN MANAGEMENT TEACHING, MD D/C PRESCRIPTION LIST EDUCATION, DIET. VERBALIZED UNDERSTANDING.
[2018-03-10] MEDS ORDERED: FURO-572 PO (10:06)
[2018-03-10] MEDS ORDERED: ORE25 PO (10:06)
[2018-03-10] MEDS ORDERED: LISI40TA4 PO (10:06)
[2018-03-10] MEDS ORDERED: CLIN300C2 PO (10:19)
[2018-03-10 12:00] VITALS: BP 107/71
--- NOTE | 2018-03-10 13:29 | NUR ---
RF: LEFT LATER LEG CHRONIC WOUND: SPOKE TO PRIMARY NURSE. PT. SEEN BY STRIP CATCHER AND WILL FOLLOW UP WITH DR. WEBBER OFFICE VISIT , [place]. IS PREPARED AND READY FOR DISCHARGE.
--- NOTE | 2018-03-10 13:30 | NUR ---
D/C HOME VIA WHEELCHAIR ACCOMPANIED BY PT. FRIEND. AWAKE, ALERT, AND ORIENTED X4. SPEECH CLEAR. NO C/O PAIN. NO SOB, NOTED. IN STABLE CONDITION. INFORMED CHARGE NURSE DION TURNER.
[2018-03-11 06:21] LABS: FOLIC ACID 14.8 ng/mL (>3.0)
== END 2018-03-10 13:30 | disposition home or self-care (01) | DRG 673 ==
LOC: MED 06:29 → MMU 09:26
PROVIDERS: ADMIT Family Medicine; ATTEND Family Medicine
PROC: 30233N1 Transfusion of Nonautologous Red Blood Cells into Peripheral Vein, Percutaneous Approach (ICD-10-PCS; principal; 2018-03-07)
PROC: 0JBP0ZZ Excision of Left Lower Leg Subcutaneous Tissue and Fascia, Open Approach (ICD-10-PCS; 2018-03-07)
DX: N17.0 Acute kidney failure with tubular necrosis (principal); E43 Unspecified severe protein-calorie malnutrition; J96.00 Acute respiratory failure, unspecified whether with hypoxia or hypercapnia; I50.43 Acute on chronic combined systolic (congestive) and diastolic (congestive) heart failure; J44.1 Chronic obstructive pulmonary disease with (acute) exacerbation; L97.229 Non-pressure chronic ulcer of left calf with unspecified severity; L03.116 Cellulitis of left lower limb; I11.0 Hypertensive heart disease with heart failure; D64.9 Anemia, unspecified; E78.5 Hyperlipidemia, unspecified; E03.9 Hypothyroidism, unspecified; Z88.6 Allergy status to analgesic agent; E83.51 Hypocalcemia; Z86.73 Personal history of transient ischemic attack (TIA), and cerebral infarction without residual deficits; F17.200 Nicotine dependence, unspecified, uncomplicated; F43.23 Adjustment disorder with mixed anxiety and depressed mood; F15.10 Other stimulant abuse, uncomplicated
CPT/HCPCS: 36415; 36600; 70450; 71045; 80048; 80053; 80305; 81001; 82150; 82607; 82728; 82746; 82803; 83036; 83540; 83605; 83690; 83735; 83880; 84100; 84436; 84439; 84443; 84479; 84484; 85025; 85045; 85610; 85730; 86886; 86900; 86901; 86920; 87040; 87081; 93005; 94640; 96374; 97161-GP; 99291; J1885; J1940; J2060; J2543; J2916; J2920; J3475; J7030; J7613; J7620; J7644; P9016; Q0092

== ENCOUNTER 2018-12-03 22:17 | Inpatient (IN) | payer OTHER, BC ==
[~2018-12-03] VITALS: Ht 167.6 cm; Wt 66.7 kg
[~2018-12-03 22:17] MED LIST changes: +AMLO5TAB PO; -AMLO5TAB4 PO; +ASCO500T45 PO; -ASPI81CT95 PO; -CITA-71 PO; +CLIN300C2 PO; +FERR324T11 PO; -FOLI1TAB90 PO; +FURO-572 PO; -LACT10CA1 PO; -LEVO750T51 PO; +LISI40TA4 PO; -NORC10 PO; +ORE25 PO; +SIMV40TA1 PO; -Therahoney Gel TP; -VITC500 PO; +[UNRECOGNIZED DRUG - CODE] PO
[2018-12-03 22:33] VITALS: BP 94/42
--- NOTE | 2018-12-03 22:41 | NUR ---
PT AMBULATED TO BED 3.
--- NOTE | 2018-12-03 22:50 | NUR ---
68/F BIB CAREGIVER, C/O POSSIBLE SYNCOPE AND FALL WHILE IN THE SHOWER 12 HRS AGO. PT UNSURE IF SHE HAD LOC. REPORTS HITTING HEAD. PT ALSO WITH LLE REDNESS, SWELLING AND PAIN, TENDER TO TOUCH. PT'S CAREGIVER STATED THAT PT IS "DUE FOR BLOOD TRANSFUSION TWICE A YEAR." PT AOX4, PERRLA 3MM, RR EVEN AND UNLABORED, SKIN NORMAL WARM AND DRY, +2 ALL PERIPHERAL STRENGTH. PT WITH BUMP ON FOREHEAD FROM PREVIOUS INCIDENT. HX BRAIN ANEURYSM WITH CLIPPINGS, HTN, ANEMIA, GASTRIC ULCERS
[2018-12-03 23:07] LABS: BASOPHILS # (AUTO) 0.1 K/uL (0.00-0.22); BASOPHILS % (AUTO) 0.3 % (0.0-2.0); HEMATOCRIT 26.5 % (36-48); HEMOGLOBIN 8.4 g/dL (12.0-16.0); LYMPHOCYTES # (AUTO) 0.7 K/uL (2.5-16.5); LYMPHOCYTES % (AUTO) 4.3 % (20.5-51.1); MEAN CORPUSCULAR HEMOGLOBIN 22 pg (27-31); MEAN CORPUSCULAR HGB CONC 32 g/dL (33-37); MEAN CORPUSCULAR VOLUME 68.3 fL (80-94); MONOCYTES # (AUTO) 1.4 K/uL (0.8-1.0); MONOCYTES % (AUTO) 8.5 % (1.7-9.3); NEUTROPHILS # (AUTO) 13.9 K/uL (1.8-7.7); NEUTROPHILS % (AUTO) 86.9 % (42.2-75.2); PLATELET COUNT (AUTO) 461 K/uL (140-450); RED BLOOD CELL COUNT(AUTO) 3.88 MIL/uL (4.20-5.40); RED CELL DISTRIBUTION WIDTH 18.3 % (11.6-13.7); WHITE BLOOD COUNT (AUTO) 15.9 K/uL (4.8-10.8)
[2018-12-03] MEDS ORDERED: VANCOMYCIN 1,000 MG in DEXTROSE 5% 250 ML IV ONE (23:10)
[2018-12-03] MEDS ORDERED: NACL 0.9% 1,000 ML IV ONE (23:10)
[2018-12-03 23:22] LABS: ALBUMIN 2.8 g/dL (3.4-5.0); ANION GAP 17.6 (8-16); CARBON DIOXIDE 20.8 mmol/L (21-32); CREATININE 2.9 mg/dL (0.6-1.3); POTASSIUM 3.4 mmol/L (3.5-5.1); TOTAL BILIRUBIN 0.6 mg/dL (0.0-1.0)
[2018-12-03] MEDS ORDERED: VANCOMYCIN 1,000 MG VIAL ONE (23:29)
[2018-12-04] MEDS ORDERED: NACL 0.9% 1,000 ML IV SCH (01:01)
[2018-12-04] MEDS ORDERED: ZOLPIDEM 5 MG TAB PO PRN (01:05)
[2018-12-04] MEDS ORDERED: ACETAMINOPHEN 325 MG TAB PO PRN (01:05)
[2018-12-04] MEDS ORDERED: LORazepam 2 MG/ML VIAL IM/IVP PRN (01:05)
[2018-12-04] MEDS ORDERED: ONDANSETRON 4 MG/2 ML VIAL IM/IVP PRN (01:05)
[2018-12-04] MEDS ORDERED: DOCUSATE SODIUM 100 MG GELCAP PO PRN (01:05)
[2018-12-04] MEDS ORDERED: MEDICATION REC. PHARMACY CONS. 1 EA MISC MC PRN (01:15)
[2018-12-04] MEDS ORDERED: DEXT 5% /NACL 0.9% 1,000 ML IV ONE (01:20)
[2018-12-04] MEDS ORDERED: NACL 0.9% 2,000 ML IV ONE (01:20)
--- NOTE | 2018-12-04 01:27 | NUR ---
PT LAYING IN BED, RR EVEN AND UNLABORED. VSS. ALL NEEDS MET AT THIS TIME.
[2018-12-04 01:35] LABS: MAGNESIUM 1.7 mg/dL (1.8-2.4); PHOSPHORUS 4.5 mg/dL (2.5-4.9); THYROID STIMULATING HORMONE 3.76 uIU/mL (0.34-3.74)
--- NOTE | 2018-12-04 01:35 | NUR ---
Patient will be admitted to care of DR NAIK. Admited to TELE. Will go to room 127B. Belongings list completed. Report to TIANA PAINTER.
[2018-12-04] MEDS ORDERED: MECLIZINE 25 MG TAB PO PRN (01:40)
--- NOTE | 2018-12-04 01:40 | NUR ---
RECEIVED FROM ER VIA WHEELCHAIR, AWAKE, ALERT ORIENTED X 4, PT W/ IV ON THE LEFT AC G 20, PATENT AND INTACT. PER FOUNDRY EQUIPMENT MECHANIC, PT HAD A BOLUS OF NS AT ER FOR 0120. PT UNSTEADY GAIT WHILE AMBULATING TOWARDS BED AT UNIT. FALL RISK. WITH HX OF FALL. FALL PRECAUTIONS INITIATED. BED ALARM AND BED PLACED IN LOW POSITION. WILL CONTINUE TO MONITOR
[2018-12-04] MEDS ORDERED: NITROGLYCERIN 0.4 MG TAB SL PRN (01:50)
[2018-12-04] MEDS ORDERED: HEPARIN PER PHARMACY MC PRN (01:50)
--- NOTE | 2018-12-04 01:50 | NUR ---
INSERTED AN IV LINE (2ND IV LINE) ON THE RIGHT FA, G 22 FOR THE HEPARIN DRIP. WILL MONITOR FOR SIGNS OF BLEEDING. PT TOLERATED PROCEDURE WELL
--- NOTE | 2018-12-04 02:00 | NUR ---
ASKED DR. SARAVIA IF I COULD START MEDS, SHE SAID TO HAVE THE STAT ORDER 1ST FOR CT SCAN HEAD, NECK BEFORE ADMINISTERING ALL THE MEDS
--- NOTE | 2018-12-04 02:05 | NUR ---
ARRIVED FROM RADIOLOGY DEPT
--- NOTE | 2018-12-04 02:10 | NUR ---
STARTED HEPARIN IV BOLUS, ORDERED
[2018-12-04] MEDS ORDERED: VANCOMYCIN PER PHARMACY MC PRN (02:15)
[2018-12-04] MEDS ORDERED: POTASSIUM CHLORIDE 10 MEQ TABER PO ONE ×2 (02:50→05:25)
[2018-12-04] MEDS ORDERED: ALBUTEROL SULFATE/IPRATROPIU 3 ML SOL IH PRN (03:05)
[2018-12-04] MEDS ORDERED: MAG SULF 2000 MG/WATER PREMIX 50 ML IV ONE (03:05)
--- NOTE | 2018-12-04 03:05 | NUR ---
STARTED MG SO4 AT THE L AC G 20 (1ST IV LINE), PT TOLERATED WELL. WILL CONTINUE TO MONITOR
[2018-12-04 04:00] VITALS: BP 120/60
--- NOTE | 2018-12-04 04:00 | NUR ---
PT STATED THAT SHE HAD VOIDED 1X BEFORE SHE WENT TO THE ER AT 2200 LAST NIGHT- PENDING URINE COLLECTION AND OCCULT BLOOD STOOL COLLECTION, WILL INFORM NEXT SHIFT RN
[2018-12-04] MEDS: hePARIN / DEXT 5% PREMIX 250 ML IV SCH ×2 (04:17→10:26)
[2018-12-04] MEDS: KETOROLAC 15 MG/ML VIAL IM PRN (04:29)
--- NOTE | 2018-12-04 04:29 | NUR ---
PT C/O PAIN ON LEFT LEG DUE TO CELLULITIS, GIVEN TORADOL IV.WILL MONITOR
[2018-12-04 06:30] LABS: MAGNESIUM 1.9 mg/dL (1.8-2.4); PHOSPHORUS 5.1 mg/dL (2.5-4.9)
[2018-12-04 06:33] LABS: CHOL/HDL RATIO 3.2 (1-4.5)
[2018-12-04 06:54] LABS: ANION GAP 17.5 (8-16); CARBON DIOXIDE 18.4 mmol/L (21-32); CREATININE 2.9 mg/dL (0.6-1.3)
[2018-12-04 07:00] LABS: POTASSIUM 2.9 mmol/L (3.5-5.1)
--- NOTE | 2018-12-04 07:20 | NUR ---
ENDORSED TO AM SHIFT FOR CONTINUITY OF CARE, PT AWAKE, ALERT ORIENTED X 4, NOT IN PAIN , NO SOB.
--- NOTE | 2018-12-04 07:21 | NUR ---
RECEIVED ENDORSEMENT FROM PACK OPERATOR NURSE. PATIENT IS AAOX4, SLEEPING BUT EASILY AROUSABLE. US TECH IS AT BEDSIDE. RESPIRATIONS ARE EVEN AND UNLABORED ON ROOM AIR. RIGHT AC IV 20 G INTACT,PATENT, AND INFUSING IVF. RIGHT FA 22 G IV INTACT, PATENT, AND INFUSING HEPARIN DRIP. PLAN OF CARE WAS REVIEWED WITH PATIENT. PATIENT VERBALIZED UNDERSTANDING. SAFETY MEASURES IN PLACE, CALL LIGHT WITHIN REACH. Addendum: 12/04/18 at 0821 by Sujey Tapia RN DENIES PAIN AT THIS TIME.
[2018-12-04 07:26] LABS: BASOPHILS % (AUTO) 0.3 % (0.0-2.0); LYMPHOCYTES # (AUTO) 0.8 K/uL (2.5-16.5); MEAN CORPUSCULAR HEMOGLOBIN 21 pg (27-31); MEAN CORPUSCULAR HGB CONC 31 g/dL (33-37); MONOCYTES # (AUTO) 1.3 K/uL (0.8-1.0); NEUTROPHILS # (AUTO) 14.1 K/uL (1.8-7.7); NEUTROPHILS % (AUTO) 86.7 % (42.2-75.2); PLATELET COUNT (AUTO) 390 K/uL (140-450); RED BLOOD CELL COUNT(AUTO) 3.34 MIL/uL (4.20-5.40); RED CELL DISTRIBUTION WIDTH 18.4 % (11.6-13.7); WHITE BLOOD COUNT (AUTO) 16.3 K/uL (4.8-10.8)
[2018-12-04 08:00] VITALS: BP 118/56
--- NOTE | 2018-12-04 08:17 | NUR ---
PATIENT HAS BEEN SCREENED AND CATEGORIZED HIGH NUTRITION RISK. PATIENT WILL BE SEEN WITHIN 1-2 DAYS OF ADMISSION. 12/04/18-12/05/[address]
[2018-12-04] MEDS ORDERED: POTASSIUM CHLORIDE 10 MEQ TABER PO SCH (08:30)
[2018-12-04] MEDS: SODIUM FERRIC GLUCONATE 125 MG in NACL 0.9% 100 ML IV SCH (09:09)
[2018-12-04] MEDS: ASPIRIN 81 MG TAB.CHEW PO SCH (09:10)
[2018-12-04] MEDS: LACTOBACILLUS RHAMNOSUS GG 1 EACH CAP PO SCH (09:10)
[2018-12-04] MEDS: FERROUS GLUCONATE 324 MG TAB PO SCH (09:10)
[2018-12-04] MEDS: ASCORBIC ACID 500 MG TAB PO SCH (09:11)
--- NOTE | 2018-12-04 09:20 | NUR ---
ADMINISTERED SCHEDULED MEDICATIONS. PT IS AT BEDSIDE. PATIENT DENIES ANY PAIN AT THIS TIME. WILL CONTINUE TO MONITOR. REINFORCED PATIENT ON SAFETY PRECAUTIONS, PATIENT VERBALIZED UNDERSTANDING. CALL LIGHT WITHIN REACH.
[2018-12-04] MEDS ORDERED: POTASSIUM CHLORIDE 40 MEQ, LIDOCAINE MPF 1% - 5 mL VIAL 25 MG in NACL 0.9% 250 ML IV SCH (09:30)
--- NOTE | 2018-12-04 10:02 | NUR ---
ADMINISTERED SCHEDULED MEDICATIONS. PATIENT DENIES ANY PAIN AT THIS TIME. NO OTHER NEEDS NOTED. DR. STEWARD PRESENT AT BEDSIDE. WILL CONTINUE TO MONITOR. Addendum: 12/04/18 at 1006 by Sujey Tapia RN DR. DONAHUE Addendum: 12/04/18 at 1007 by Sujey Tapia RN WRONG PATIENT.
--- NOTE | 2018-12-04 11:30 | NUR ---
ADMINISTERED SCHEDULED MEDICATIONS. PATIENT IS SLEEPING, EASILY AROUSABLE. DENIES ANY PAIN AT THIS TIME. WILL CONTINUE TO MONITOR.
[2018-12-04 12:00] VITALS: BP 115/66
--- NOTE | 2018-12-04 13:32 | NUR ---
PATIENT IS SLEEPING, EASILY AROUSABLE. NO OTHER NEEDS AT THIS TIME.
[2018-12-04] MEDS ORDERED: CLINDAMYCIN PHOS 600MG/D5W PM 50 ML IV SCH (13:43)
--- NOTE | 2018-12-04 14:05 | NUR ---
S.T. BEDSIDE SWALLOW EVAL COMPLETED See report for details. Pt presents with mild oral difficulty with mastication of solids due to lack of upper dentition and upper denture no longer fits. Pt gums solids at baseline, per pt report. Noted prolonged mastication with diffuse oral residue after swallow of solids. No overt s/s aspiration observed across all textures. Recommend: 1) Advance to mechanical soft chopped diet, thin liquids okay. 2) P.O. meds as tolerated. 3) Defer to MD/DO for dietary restrictions. 4) No further tx indicated at this time as pt is functioning at her reported baseline. [facility] at this time. D/w pt and MADINA Jiménez results/recommendations. Time [id number]
--- NOTE | 2018-12-04 14:18 | NUR ---
PATIENT IS RESTING IN BED, US TECH AND F&NS AT BEDSIDE. NO SIGNS OF DISTRESS AT BEDSIDE. WILL CONTINUE TO MONITOR.
[2018-12-04] MEDS: NACL 0.9% 1,000 ML IV SCH (14:32)
--- NOTE | 2018-12-04 14:52 | NUR ---
12/04/18 RD INITIAL ASSESSMENT COMPLETED PLEASE REFER TO NUTRITION ASSESSMENT UNDER CARE ACTIVITY FOR ESTIMATED NUTRITIONAL NEEDS. 1. CONTINUE REGULAR DIET TOLERATED 2. IF PO INTAKE <75% CONSIDER ENSURE BID 3. RD TO FOLLOW-UP 3-5 DAYS, MODERATE RISK MELITA ALDANA, RD
[2018-12-04 16:00] VITALS: BP 112/58
--- NOTE | 2018-12-04 16:30 | NUR ---
PATIENT IS RESTING IN BED. DENIES PAIN AT THIS TIME. NO OTHER NEEDS AT THIS TIME. WILL CONTINUE TO MONITOR.
[2018-12-04 18:16] LABS: ANION GAP 22.1 (8-16); CARBON DIOXIDE 14.5 mmol/L (21-32); POTASSIUM 4.6 mmol/L (3.5-5.1)
--- NOTE | 2018-12-04 19:22 | NUR ---
ENDORSED TO DIRECTOR OF ATHLETICS FOR CONTINUITY OF CARE. PATIENT IS STABLE.
--- NOTE | 2018-12-04 19:22 | NUR ---
REPORT RECEIVED BY LUIS FELIPE PAINTER AND CARMELO PAINTER AT BEDSIDE FOR CONTINUITY OF CARE, PT IN STABLE CONDITION.
[2018-12-04 20:00] VITALS: BP 106/46
--- NOTE | 2018-12-04 20:00 | NUR ---
PT IN BED, SHE IS AOX3 WITH 2 IV SITES. 1 IN RIGHT AC 20G AND THE OTHER R WRIST 22G. N/S RUNNING AT 80MLS ON RIGHT AC. V/S FOLLOWS T 98.3 P 88 R 18 B/P 106/46. STOOL AND URINE SAMPLE STILL NEED TO BE COLLECTED. PT OFFERED TO BE ASSISTED TO TOILET, HOWEVER PT SAID THAT SHE DIDN'T HAVE TO USE THE TOILET AT THIS TIME. PT REMINDED THAT STOOL AND URINE SAMPLES ARE STILL NEEDED, PT VERBALIZED UNDERSTANDING.
[2018-12-04] MEDS: CLINDAMYCIN PHOS 600MG/D5W PM 50 ML IV SCH (20:40)
--- NOTE | 2018-12-04 21:00 | NUR ---
PT GIVEN DUE MEDS OF CLINDAMYCIN AND HEPARIN. PT OFFERED TO BE ASSISTED TO TOILET, ONCE AGAIN , SHE SAID THAT SHE DIDN'T HAVE TO USE THE TOILET. PT AGAIN REMINDED REGARDING STOOL AND URINE SAMPLES.
--- NOTE | 2018-12-04 22:32 | NUR ---
SPOKE WITH DR. SARAVIA REGARDING NEED FOR URINE DRUG SCREEN AND URINALYSIS. ASKED PT IF SHE NEEDS TO USE THE TOILET YET, AND PT SAID THAT SHE WAS ESCORTED TO TOILET BUT FORGOT TO LEAVE A SAMPLE. DR. SARAVIA UPDATED AND PT REMINDED THAT STOOL AND URINE SAMPLES ARE NEEDED. PT AGAIN VERBALIZED UNDERSTANDING AND HAT LEFT ABOVE THE TOILET. INTERACTIVE MEDIA DESIGNER'S REMINDED THAT PT NEEDS A STOOL AND URINE SAMPLE, THEY ALSO VERBALIZED UNDERSTANDING. PT IV BEEPING. 22 GUAGE RIGHT WRIST IV SITE FLUSHED PATENT AND FLUIDS NOW RUNNING FROM 22G ON RIGHT WRIST. PT DENIES PAIN ALL REQUESTED NEEDS ATTENDED AND CALL SIMMONS IN REACH.
[2018-12-05] VITALS: BP 114/59
--- NOTE | 2018-12-05 00:20 | NUR ---
PT IN BED RESTING WITH EYES CLOSED, NO S/S OF PAIN OR DISTRESS NOTED. PT AROUSABLE TO NAME AND LIGHT TOUCH. V/S FOLLOWS T 97.6 P 83 R 18 B/P 114/59 02 96% ON ROOM AIR. BED LOW SIDE RIALS UP X2 AND ALL REQUESTED NEEDS ATTENDED.
[2018-12-05] MEDS: NACL 0.9% 1,000 ML IV SCH ×3 (01:07→18:15)
[2018-12-05] MEDS: KETOROLAC 15 MG/ML VIAL IM PRN ×2 (03:44→12:13)
[2018-12-05] MEDS: CLINDAMYCIN PHOS 600MG/D5W PM 50 ML IV SCH ×3 (04:37→22:00)
[2018-12-05 08:00] VITALS: BP 116/68
[2018-12-05 08:23] LABS: BASOPHILS % (AUTO) 0.2 % (0.0-2.0); EOSINOPHILS % (AUTO) 0.1 % (0.0-4.0); HEMATOCRIT 20.2 % (36-48); LYMPHOCYTES # (AUTO) 0.8 K/uL (2.5-16.5); LYMPHOCYTES % (AUTO) 5.3 % (20.5-51.1); MEAN CORPUSCULAR HEMOGLOBIN 21 pg (27-31); MEAN CORPUSCULAR HGB CONC 31 g/dL (33-37); MEAN CORPUSCULAR VOLUME 67.8 fL (80-94); MONOCYTES # (AUTO) 1.4 K/uL (0.8-1.0); MONOCYTES % (AUTO) 9.3 % (1.7-9.3); NEUTROPHILS # (AUTO) 12.6 K/uL (1.8-7.7); NEUTROPHILS % (AUTO) 85.1 % (42.2-75.2); PLATELET COUNT (AUTO) 393 K/uL (140-450); RED BLOOD CELL COUNT(AUTO) 2.99 MIL/uL (4.20-5.40); RED CELL DISTRIBUTION WIDTH 18.2 % (11.6-13.7); WHITE BLOOD COUNT (AUTO) 14.8 K/uL (4.8-10.8)
[2018-12-05 08:30] LABS: CARBON DIOXIDE 16.9 mmol/L (21-32); CREATININE 2.4 mg/dL (0.6-1.3); POTASSIUM 3.9 mmol/L (3.5-5.1)
--- NOTE | 2018-12-05 08:30 | NUR ---
[facility] WAS DOWN. PLEASE REFER TO PAPER DOCUMENT.
[2018-12-05 08:37] LABS: MAGNESIUM 2.6 mg/dL (1.8-2.4); PHOSPHORUS 3.7 mg/dL (2.5-4.9)
[2018-12-05 09:13] LABS: T4 (THYROXINE) 5.5 ug/dL (4.5-12.0)
[2018-12-05] MEDS: SODIUM FERRIC GLUCONATE 125 MG in NACL 0.9% 100 ML IV SCH (09:23)
[2018-12-05] MEDS: ASPIRIN 81 MG TAB.CHEW PO SCH (09:24)
[2018-12-05] MEDS: FERROUS GLUCONATE 324 MG TAB PO SCH (09:24)
[2018-12-05] MEDS: LACTOBACILLUS RHAMNOSUS GG 1 EACH CAP PO SCH (09:25)
[2018-12-05] MEDS: ASCORBIC ACID 500 MG TAB PO SCH (09:25)
--- NOTE | 2018-12-05 09:26 | NUR ---
RECEIVED CRITICAL LAB VALUE FOR TROPONIN 0.263. REPORTED TO DR DONAHUE AND DR DONAHUE WAS AWARE. NO ORDER RECEIVED.
[2018-12-05 09:33] LABS: HEMOGLOBIN 6.3 g/dL (12.0-16.0)
--- NOTE | 2018-12-05 09:33 | NUR ---
ADMINISTERED MEDS PER MD ORDER,PATIENT TOLERATED WELL. PATIENT IS AWAKE AND RESTING ON BED AT THIS TIME. DENIES PAIN AND SOB. NO SIGNS OF DISTRESS NOTED. INSTRUCTED PATIENT THAT STOOL SAMPLE AND URINE SAMPLE ARE NEEDED. PROVIDED URINE SPECIMEN CUP AND HAT PLACED IN THE TOILET FOR SPECIMEN COLLECTION. PATIENT WAS AWARE. SAFETY MEASURES IN PLACE. TELE MONITOR ATTACHED. BED IN LOW POSITION AND CALL LIGHT WITHIN REACH. INSTRUCTED PATIENT TO USE THE CALL LIGHT FOR ANY ASSISTANCE AND PATIENT WAS AWARE.
--- NOTE | 2018-12-05 09:36 | NUR ---
RECEIVED CRITICAL LAB VALUE FOR HEMOGLOBIN 6.3 AND HCT 20.2. REPORTED TO DR DONAHUE AND DR DONAHUE WAS AWARE. NO ORDER RECEIVED.
--- NOTE | 2018-12-05 10:45 | NUR ---
COLLECTED STOOL SPECIMEN AND URINE SPECIMEN. DELIVERED TO LAB.
--- NOTE | 2018-12-05 11:14 | NUR ---
PATIENT IS RESTING ON BED AT THIS TIME. DENIES PAIN AND SOB. RESPIRATION EVEN AND UNLABORED. NO SIGNS OF DISTRESS NOTED. SAFETY MEASURES IN PLACE. TELE MONITOR ATTACHED. BED IN LOW POSITION AND CALL LIGHT WITHIN REACH.
[2018-12-05 12:00] VITALS: BP 122/77
--- NOTE | 2018-12-05 12:13 | NUR ---
PATIENT COMPLAINED OF PAIN 6/10 ON HER L LEFT LOW LEG. ADMINISTERED PRN TORADOL PER MD ORDER, PATIENT TOLERATED WELL. SAFETY MEASURES IN PLACE. TELE MONITOR ATTACHED.
[2018-12-05 13:00] LABS: APPEARANCE,URINE SL CLOUDY (CLEAR); BILIRUBIN,URINE 1+ (NEGATIVE); BLOOD, URINE 3+ (NEGATIVE); COLOR,URINE YELLOW (YELLOW); LEUKOCYTE ESTERASE ,URINE NEGATIVE (NEGATIVE); NITRITE, URINE NEGATIVE (NEGATIVE); UGLUCOSE NEGATIVE (NEGATIVE)
[2018-12-05 13:05] LABS: BARBITURATE, URINE NEG. ng/ml (NEG <=200); BENZODIAZEPINE, URINE NEG. ng/mL (NEG <=200); CANNABINOID, URINE NEG. ng/mL (NEG <=50); COCAINE, URINE NEG. ng/mL (NEG <=300); OPIATE, URINE NEG. ng/mL (NEG <=2000); PHENCYCLIDINE SCREEN,URINE NEG. ng/mL (NEG <=25)
[2018-12-05 13:19] LABS: RBC,URINE TOO NUMEROUS TO COUN /HPF (0-5)
[2018-12-05] MEDS ORDERED: FUROSEMIDE 20 MG TAB PO SCH ×2 (14:01→18:00)
--- NOTE | 2018-12-05 14:30 | NUR ---
DR DONAHUE IS AT BEDSIDE AND EXPLAINED THE BENEFITS AND RISKS FOR BLOOD TRANSFUSION. PATIENT VERBALIZED UNDERSTANDING AND AGREED TO RECEIVE BLOOD TRANSFUSION. BLOOD TRANSFUSION CONSENT WAS OBTAINED. PROVIDED GUIDE TO BLOOD TRANSFUSION TO PATIENT.
[2018-12-05 15:14] LABS: FERRITIN 53 ng/mL (15-150)
[2018-12-05 15:14] LABS: FOLIC ACID > 20.00 ng/mL (>3.0)
--- NOTE | 2018-12-05 15:20 | NUR ---
PATIENT IS AWAKE AND RESTING ON BED AT TH IS TIME. BRYAN PAIN AND SOB. RESPIRATION EVEN AND UNLABORED ON RA. NO SIGNS OF DISTRESS NOTED. SAFETY MEASURES IN PLACE. BED IN LOW POSITION AND CALL LIGHT WITHIN REACH.
[2018-12-05 16:00] VITALS: BP 110/73
--- NOTE | 2018-12-05 17:45 | NUR ---
VITAL SIGNS TAKEN PRIOR TO BLOOD TRANSFUSION STARTED; TEMP. 98.1. BP 123/68, PULSE 108, RESPIRATION 18, DENIES PAIN NO SIGNS OF ALLERGIC REACTION AND DISTRESS NOTED. SAFETY MEASURES IN PLACE. MONITOR VITAL SIGNS AND PATIENT CLOSELY FOR ANY BLOOD TRANSFUSION REACTION/ADVERSE EFFECT.
--- NOTE | 2018-12-05 18:20 | NUR ---
UNABLE TO ADMINISTER LASIX DUE TO PATIENT IS STILL RECEIVING BLOOD TRANSFUSION. WILL ENDORSE TO THE STAFFING ACCOUNT MANAGER NURSE.
--- NOTE | 2018-12-05 19:21 | NUR ---
RECEIVED REPORT AT BEDSIDE FROM ELOY PAINTER DAYSHIFT NURSE, PT IN STABLE CONDITION. PT IS TRANSFUSING PRBC'S 1 UNIT IN PROGRESS. PT DROWSY BUT AROUSABLE TO NAME AND LIGHT TOUCH. NO ADVERSE REACTION TO BLOOD TRANSFUSION. V/S FOLLOWS T 98.0 P 107 R 18 B/P 124/66 02 97% ON ROOM AIR. PT REPOSITIONED IN BED AND ALL FALLS PRECAUTIONS OBSERVED.
--- NOTE | 2018-12-05 19:21 | NUR ---
ENDORSED PATIENT AT BEDSIDE TO MARKET RESEARCH COORDINATOR NURSE FOR CONTINUITY OF CARE. PATIENT IS RECEIVING BLOOD TRANSFUSION. NO ADVERSE REACTION AND DISTRESS NOTED. VITAL SIGNS ARE WITHIN PATIENT'S NORMAL PARAMETER. PATIENT IS IN STABLE CONDITION. SAFETY MEASURES IN PLACE.
--- NOTE | 2018-12-05 19:30 | NUR ---
DENTAL CERAMIST HELPER CONSULT AT BEDSIDE.
[2018-12-05 20:00] VITALS: BP 124/66
--- NOTE | 2018-12-05 20:20 | NUR ---
TRANSFUSION IN PROGRESS AND ALMOST FINISHED, NO S/S OF ANY REACTION NOTED V/S FOLLOWS T 97.1 P 80 R 18 B/P 127/68 02 97% ON ROOM AIR.
--- NOTE | 2018-12-05 21:30 | NUR ---
TRANSFUSION COMPLETED. IV SITE FLUSHED PATENT.V/S FOLLOWS T 97.9 P 86 R 18 B/P 135/73 02 97% ON ROOM AIR. PT GIVEN LASIX PO WHICH WAS HELD DUE TO TRANSFUSION, WELL ORDERED HEPARIN AND IV ABT CLINDAMYCIN FOR LEFT LEG CELLULITIS. LEFT LEG ELEVATED. PT HUNGRY AND GIVEN SANDWICH AND JUICE REQUESTED. ALL FALLS PRECAUTIONS IN PLACE.AND CALL SIMMONS IN REACH.
--- NOTE | 2018-12-05 23:38 | NUR ---
PT ASSISTED TO TOILET AND BACK. ALL FALLS PRECAUTIONS OBSERVED. IV SITE INTACT AND RUINING N/S AT 80MLS/HR. NO C/O OF PAIN OR DISTRESS VOICED. BED LOW AND CALL SIMMONS IN REACH.
[2018-12-06] VITALS: BP 152/82
[2018-12-06 00:45] LABS: TRANSFERRIN 191 mg/dL (200-370)
--- NOTE | 2018-12-06 00:45 | NUR ---
PT IN BED NO S/S OF PAIN OR DISTRESS NOTED. OFFERED ASSISTANCE TO THE TOILET, PT SAID THAT SHE IS OK AND DOESN'T HAVE TO GO. ALL FALLS PRECAUTIONS OBSERVED. T 97.5 P 110 R 18 B/P 152/82 02 98%.
--- NOTE | 2018-12-06 00:56 | NUR ---
BED ALARM GOING OFF, PT FOUND SITTING AT THE EDGE OF HER BED PEEING IN HER WATER PITCHER. PT ASSISTED TO THE TOILET, BED CHANGED AND PT ASSISTED BACK TO BED . ALL FALLS PRECAUTIONS IN PLACE
--- NOTE | 2018-12-06 03:30 | NUR ---
PT C/O MODERATE 6/10 PAIN IN LEFT LEG. PT GIVEN PO/PRN NORCO. FLUID RATE OF NORMAL SALINE CHANGED TO 120MLS/HR. ALL FALLS PRECAUTIONS IN PLACE.
[2018-12-06] MEDS: NACL 0.9% 1,000 ML IV SCH ×2 (03:50→10:27)
[2018-12-06] MEDS: HYDROcodone/APAP 5/325 MG 1 TAB TAB PO PRN ×2 (03:51→21:47)
[2018-12-06 04:00] VITALS: BP 146/72
[2018-12-06] MEDS: CLINDAMYCIN PHOS 600MG/D5W PM 50 ML IV SCH ×3 (05:09→21:38)
--- NOTE | 2018-12-06 05:35 | NUR ---
IV SITE ON RIGHT AC LEAKING, SITE PULLED OUT AND NEW IV SITE PROVIDED ON RIGHT WRIST WITH 24GUAGE. CLINDAMYCIN HUNG AND RUNNING ORDERED. VIA NEW IV SITE ON RIGHT WRIST.
--- NOTE | 2018-12-06 07:20 | NUR ---
REPORT GIVEN TO SHAMA PAINTER DAYSHIFT NURSE AT BEDSIDE FOR CONTINUITY OF CARE, PT IN STABLE CONDITION.
--- NOTE | 2018-12-06 07:40 | NUR ---
PATIENT WAS SLEEPING COMFORTABLY, EASILY AROUSABLE BY NAME, ORIENTED X 3. RESPIRATION EVEN, UNLABOR ON ROOM AIR. SKIN DRY AND WARM. IV PATENT AND INTACT. DENIED PAIN AT THIS TIME. PLAN OF CARE WAS DISCUSSED WITH PATIENT. BED AT LOW POSITION, SIDE RAILS UP. CALL LIGHT WITHIN REACH
[2018-12-06 08:00] VITALS: BP 126/63
[2018-12-06 08:00] LABS: ANION GAP 15.9 (8-16); CARBON DIOXIDE 17.4 mmol/L (21-32); CREATININE 1.5 mg/dL (0.6-1.3); POTASSIUM 3.3 mmol/L (3.5-5.1)
[2018-12-06 08:08] LABS: MAGNESIUM 2.4 mg/dL (1.8-2.4); PHOSPHORUS 3.5 mg/dL (2.5-4.9)
[2018-12-06 08:18] LABS: BASOPHILS % (AUTO) 0.3 % (0.0-2.0); EOSINOPHILS # (AUTO) 0.1 K/uL (0-0.4); EOSINOPHILS % (AUTO) 0.4 % (0.0-4.0); HEMATOCRIT 20.9 % (36-48); LYMPHOCYTES % (AUTO) 6.4 % (20.5-51.1); MEAN CORPUSCULAR HEMOGLOBIN 22 pg (27-31); MEAN CORPUSCULAR HGB CONC 31 g/dL (33-37); MEAN CORPUSCULAR VOLUME 69.8 fL (80-94); MONOCYTES # (AUTO) 1.5 K/uL (0.8-1.0); NEUTROPHILS # (AUTO) 13.6 K/uL (1.8-7.7); NEUTROPHILS % (AUTO) 83.9 % (42.2-75.2); PLATELET COUNT (AUTO) 370 K/uL (140-450); RED BLOOD CELL COUNT(AUTO) 2.99 MIL/uL (4.20-5.40); RED CELL DISTRIBUTION WIDTH 19.7 % (11.6-13.7); WHITE BLOOD COUNT (AUTO) 16.2 K/uL (4.8-10.8)
[2018-12-06 08:37] LABS: HEMOGLOBIN 6.5 g/dL (12.0-16.0)
[2018-12-06] MEDS: ASCORBIC ACID 500 MG TAB PO SCH (08:37)
[2018-12-06] MEDS: FERROUS GLUCONATE 324 MG TAB PO SCH (08:37)
[2018-12-06] MEDS: LACTOBACILLUS RHAMNOSUS GG 1 EACH CAP PO SCH (08:37)
--- NOTE | 2018-12-06 08:40 | NUR ---
DR CAMARILLO WAS MADE AWARE OF PATIENT HG 6.5, WILL ORDER ANOTHER UNIT OF PRBC PER MD
--- NOTE | 2018-12-06 09:30 | NUR ---
PATIENT WAS SLEEPING COMFORTABLY. RESPIRATION EVEN, UNLABOR ON ROOM AIR. IV 22G WAS INSERTED ON LEFT FOREARM. PATIENT TOLERATED WELL
--- NOTE | 2018-12-06 11:00 | NUR ---
BLOOD TRANSFUSION WAS STARTED. VS WAS STABLE AT THIS TIME
--- NOTE | 2018-12-06 12:30 | NUR ---
PATIENT WAS SLEEPING COMFORTABLY. RESPIRATION EVEN, UNLABOR ON ROOM AIR. NO DISTRESS NOTED AT THIS TIME.
--- NOTE | 2018-12-06 13:50 | NUR ---
BLOOD TRANSFUSION WAS FINISHED. VS IS STABLE. NO DISTRESS NOTED AT THIS TIME
[2018-12-06] MEDS ORDERED: VANCOMYCIN PER PHARMACY MC PRN (13:55)
[2018-12-06] MEDS ORDERED: POTASSIUM CHLORIDE 40 MEQ, LIDOCAINE MPF 1% - 5 mL VIAL 25 MG in NACL 0.9% 250 ML IV SCH (14:00)
[2018-12-06] MEDS: VANCOMYCIN HCL 750 MG in DEXTROSE 5% 250 ML IV SCH (15:52)
[2018-12-06 16:00] VITALS: BP 157/90
--- NOTE | 2018-12-06 16:00 | NUR ---
PATIENT WAS RESTING COMFORTABLY. RESPIRATION EVEN, UNLABOR ON ROOM AIR. DENIED PAIN, N/V. NO DISTRESS NOTED AT THIS TIME.
--- NOTE | 2018-12-06 18:08 | NUR ---
PATIENT WAS AWAKE, ALERT, EATING COMFORTABLY. RESPIRATION EVEN, UNLABOR ON ROOM AIR. IV PATENT AND INTACT. NO DISTRESS NOTED AT THIS TIME
--- NOTE | 2018-12-06 19:12 | NUR ---
ENDORSEMENT GIVEN TO STUCCO PLASTERER NURSE. PATIENT IS STABLE AT THIS TIME
--- NOTE | 2018-12-06 19:15 | NUR ---
REPORT RECEIVED FROM SHAMA RN DAYSHIFT NURSE AT BEDSIDE FOR CONTINUITY OF CARE, PT IN STABLE CONDITION.
--- NOTE | 2018-12-06 20:00 | NUR ---
PT IN BED ALL FALLS PRECAUTIONS OBSERVED. 2 IV SITES ON RIGHT AND LEFT HAND INTACT AND FLUSHED PATENT. PT TURNED , CHANGED AND REPOSITIONED. PT REQUESTED PAIN MEDICATION FOR LEFT LEG. IV SITE ON RIGHT WRIST RUNNING N/S AT 40MLS/HR. V/S FOLLOWS T 97.8 P 96 R 18 B/P 148/77 02 99% ON ROOM AIR.
--- NOTE | 2018-12-06 21:00 | NUR ---
PT GIVEN ORDERED CLINDAMYCIN IV ABT FOR LEFT LEG CELLULITIS HEPARIN SQ FOR DVT PREVENTION, AND ORDERED LOPRESSOR FOR HTN. PT WAS ESCORTED TO TOILET AND BACK. PT HAD NO FURTHER C/O VOICED AND ALL FALLS PRECAUTIONS IN PLACE.
[2018-12-06] MEDS: METOPROLOL 25 MG TAB PO SCH (21:47)
--- NOTE | 2018-12-06 21:50 | NUR ---
PT C/O 02/13 PAIN IN LEFT LEG, PT GIVEN PO/PRN NORCO, WILL CONTINUE TO MONITOR FOR PAIN.
[2018-12-07] VITALS: BP 143/89
--- NOTE | 2018-12-07 00:15 | NUR ---
PT IN BED NO S/S OF PAIN OR DISTRESS NOTED. V/S FOLLOWS T 97.9 P 86 R 18 B/P 143/89 02 96% ON ROOM AIR.
--- NOTE | 2018-12-07 02:00 | NUR ---
PT IN BED TURNED, CHANGED AND REPOSITIONED. ALL FALLS PROCOL IN PLACE.
[2018-12-07] MEDS: CLINDAMYCIN PHOS 600MG/D5W PM 50 ML IV SCH ×3 (05:05→20:13)
[2018-12-07] MEDS: NACL 0.9% 1,000 ML IV SCH ×2 (05:13→21:35)
--- NOTE | 2018-12-07 05:19 | NUR ---
PT IN BED NO S/S OF PAIN OR DISTRESS NOTED. N/S RUNNING AT 40MLS/HR VIA IV SITE ON RIGHT WRIST. CLINDAMYCIN HUNG AND RUNNING ORDERED.
[2018-12-07 07:26] LABS: HEMATOCRIT 23.3 % (36-48); HEMOGLOBIN 7.3 g/dL (12.0-16.0); MEAN CORPUSCULAR HEMOGLOBIN 22 pg (27-31); MEAN CORPUSCULAR HGB CONC 31 g/dL (33-37); MEAN CORPUSCULAR VOLUME 71.1 fL (80-94); PLATELET COUNT (AUTO) 399 K/uL (140-450); RED BLOOD CELL COUNT(AUTO) 3.28 MIL/uL (4.20-5.40); WHITE BLOOD COUNT (AUTO) 18.9 K/uL (4.8-10.8)
--- NOTE | 2018-12-07 07:29 | NUR ---
CARE ENDORSED TO PADMINI PAINTER DAYSHIFT NURSE AT BEDSIDE FOR CONTINUITY OF CARE, PT IN STABLE CONDITION.
[2018-12-07 07:30] LABS: ANION GAP 15.3 (8-16); CARBON DIOXIDE 18.3 mmol/L (21-32); CREATININE 1.1 mg/dL (0.6-1.3); POTASSIUM 3.6 mmol/L (3.5-5.1)
--- NOTE | 2018-12-07 07:30 | NUR ---
RECEIVED REPORT FROM WASTE PAPER HAMMERMILL OPERATOR NURSE SHELLEY FOR CONTINUITY OF CARE. PT IN STABLE CONDITION. RESPIRATIONS EVEN AND UNLABORED. ROOM AIR. IV SITES INTACT AND PATENT. SAFETY MEASURES IN PLACE. CALL LIGHT AT BEDSIDE. BED IN LOW POSITION. BED ALARM SET. WILL CONTINUE TO MONITOR.
[2018-12-07 07:37] LABS: MAGNESIUM 2.1 mg/dL (1.8-2.4); PHOSPHORUS 2.8 mg/dL (2.5-4.9)
[2018-12-07 08:00] VITALS: BP 126/93
[2018-12-07 08:45] LABS: EOSINOPHILS % (MANUAL) 1 % (0-4); LYMPHOCYTES % (MANUAL) 3 % (20-46); MONOCYTES % (MANUAL) 7 % (5-12)
[2018-12-07] MEDS: METOPROLOL 25 MG TAB PO SCH ×2 (09:44→20:13)
[2018-12-07] MEDS: FUROSEMIDE 20 MG TAB PO SCH (09:44)
[2018-12-07] MEDS: ASCORBIC ACID 500 MG TAB PO SCH (09:44)
[2018-12-07] MEDS: FERROUS GLUCONATE 324 MG TAB PO SCH (09:45)
[2018-12-07] MEDS: LACTOBACILLUS RHAMNOSUS GG 1 EACH CAP PO SCH (09:45)
--- NOTE | 2018-12-07 09:45 | NUR ---
GAVE ORDERED DUE MEDICATIONS AT THIS TIME. PT TOLERATED WELL. PT IN STABLE CONDITION. BED IN LOW POSITION. BED ALARM SET CALL LIGHT AT BEDSIDE. WILL CONTINUE TO MONITOR
--- NOTE | 2018-12-07 11:10 | NUR ---
PT LYING IN BED SLEEPING AT THIS TIME. RESPIRATIONS EVEN AND UNLABORED. BED IN LOW POSITION. BED ALARM SET. CALL LIGHT AT BEDSIDE. WILL CONTINUE TO MONITOR
--- NOTE | 2018-12-07 12:30 | NUR ---
ASSISTED PT TO BATHROOM. PT TOLERATED WELL. BED IN LOW POSITION. BED ALARM SET. CALL LIGHT AT BEDSIDE. WILL CONTINUE TO MONITOR.
--- NOTE | 2018-12-07 13:09 | NUR ---
PT LYING IN BED SLEEPING AT THIS TIME. PT INFORMED IV MEDICATION CLINDAMYCIN IS DUE AT THIS TIME. PT VERBALIZED UNDERSTANDING. PT IN STABLE CONDITION. BED IN LOW POSITION. BED ALARM SET. CALL LIGHT AT BEDSIDE. WILL CONTINUE TO MONITOR
--- NOTE | 2018-12-07 14:42 | NUR ---
PT ROOMMATE JENNIFER CALLED FOR UPDATE ON PT CONDITION. GAVE PHONE TO PT FOR UPDATING ROOMMATE JENNIFER OF CONDITION. PT IN STABLE CONDITION. BED IN LOW POSITION. BED ALARM SET. CALL LIGHT AT BEDSIDE. WILL CONTINUE TO MONITOR
--- NOTE | 2018-12-07 15:10 | NUR ---
CALLED [facility] MONDRAGON SPOKE WITH MARIA E REGARDING SNF PLACEMENT PER MARIA E THEY CAN ACCEPT. NOTIFIED DR ROBERTS .
[2018-12-07] MEDS: VANCOMYCIN HCL 750 MG in DEXTROSE 5% 250 ML IV SCH (15:35)
[2018-12-07 16:00] VITALS: BP 133/84
--- NOTE | 2018-12-07 16:39 | NUR ---
ASSISTED PT TO BATHROOM. PT TOLERATED WELL. BED IN LOW POSITION. BED ALARM SET. CALL LIGHT AT BEDSIDE. WILL CONTINUE TO MONITOR.
--- NOTE | 2018-12-07 19:28 | NUR ---
GAVE REPORT TO PERSONNEL MANAGER NURSE FOR CONTINUITY OF CARE. PT IN STABLE CONDITION.
--- NOTE | 2018-12-07 19:29 | NUR ---
RECEIVED BEDSIDE REPORT FROM PADMINI PAINTER. PT IS AAOX4. ON ROOM AIR RESPIRATIONS ARE EQUAL AND UNLABORED. PT DX LLE CELLUITIS. LEG IS RED AND SWOLLEN +2 PITTING. LEG HAS BEEN ,MARKED AND ON IV ANTIBIOTICS. IV ON R WRIST 24G NS AT 40ML. L WRIST 22G SL. PT ON FALL PRECAUTIONS PLAN TO GO TO SNF FOR IV ANTIBIOTICS POSSIBLY TOMORROW. CALL LIGHT WITHIN REACH. WILL CONTINUE TO MONITOR.
[2018-12-07] MEDS: HYDROcodone/APAP 5/325 MG 1 TAB TAB PO PRN (20:12)
--- NOTE | 2018-12-07 20:12 | NUR ---
VITAL SIGNS ARE WITHIN NORMAL LIMITS ADMINISTERED NORCO FOR PAIN 12/14. SCHEDULED MEDICATIONS GIVEN. CALL LIGHT WITHIN REACH. BED ON LOWEST POSITION AND BED ALARM ON.
--- NOTE | 2018-12-07 21:51 | NUR ---
PATIENT IS SLEEPING. RESPIRATIONS ARE EQUAL AND UNLABORED. BED ALARM ON. CALL LIGHT WITHIN REACH. WILL CONTINUE TO MONITOR
[2018-12-08] VITALS: BP 155/89
--- NOTE | 2018-12-08 00:09 | NUR ---
VITAL SIGNS ARE WITHIN NORMAL LIMITS. NO RESPIRATORY DISTRESS NOTED. DENIES PAIN. BED ALARM ON AND LOWEST POSITION. CALL LIGHT WITHIN REACH.
--- NOTE | 2018-12-08 04:00 | NUR ---
PATIENT IS SLEEPING COMFORTABLY IN BED. RESPIRATIONS ARE EQUAL AND UNLABORED. CALL LIGHT WITHIN REACH.
[2018-12-08] MEDS: CLINDAMYCIN PHOS 600MG/D5W PM 50 ML IV SCH (04:17)
--- NOTE | 2018-12-08 07:25 | NUR ---
GAVE BEDSIDE REPORT TO DAY SHIFT RN. PT ENDORSED IN STABLE CONDITION.
--- NOTE | 2018-12-08 07:27 | NUR ---
RECEIVED BEDSIDE REPORT FROM MERCHANDISE TEAM MANAGER NURSE. PATIENT IS SLEEPING ON BED AT THIS TIME. RESPIRATION EVEN AND UNLABORED ON RA. NO SIGNS OF DISTRESS NOTED. IV ON RAC 20G, INTACT AND CLEAN, INFUSING PER MD ORDER. REDNESS ON R LOW LEG NOTED, OTHERWISE, SKIN IS DRY AND INTACT. PATIENT IS CONTINENT AND ABLE TO AMBULATE WITH ASSIST. FALL RISK INITIALED AND BED ALARM ACTIVATED. BED IN LOW POSITION AND CALL LIGHT WITHIN REACH.
[2018-12-08 07:55] LABS: BASOPHILS # (AUTO) 0.1 K/uL (0.00-0.22); BASOPHILS % (AUTO) 0.3 % (0.0-2.0); EOSINOPHILS # (AUTO) 0.2 K/uL (0-0.4); EOSINOPHILS % (AUTO) 1.3 % (0.0-4.0); HEMATOCRIT 23.9 % (36-48); HEMOGLOBIN 7.4 g/dL (12.0-16.0); LYMPHOCYTES # (AUTO) 1.3 K/uL (2.5-16.5); LYMPHOCYTES % (AUTO) 7.3 % (20.5-51.1); MEAN CORPUSCULAR HEMOGLOBIN 22 pg (27-31); MEAN CORPUSCULAR HGB CONC 31 g/dL (33-37); MEAN CORPUSCULAR VOLUME 71.5 fL (80-94); MONOCYTES # (AUTO) 1.7 K/uL (0.8-1.0); MONOCYTES % (AUTO) 9.5 % (1.7-9.3); NEUTROPHILS # (AUTO) 14.4 K/uL (1.8-7.7); NEUTROPHILS % (AUTO) 81.6 % (42.2-75.2); PLATELET COUNT (AUTO) 466 K/uL (140-450); RED BLOOD CELL COUNT(AUTO) 3.35 MIL/uL (4.20-5.40); RED CELL DISTRIBUTION WIDTH 20.8 % (11.6-13.7); WHITE BLOOD COUNT (AUTO) 17.7 K/uL (4.8-10.8)
[2018-12-08 08:00] VITALS: BP 151/82
[2018-12-08 08:43] LABS: ANION GAP 15.2 (8-16); CARBON DIOXIDE 19.3 mmol/L (21-32); CREATININE 0.9 mg/dL (0.6-1.3); POTASSIUM 3.5 mmol/L (3.5-5.1)
[2018-12-08 08:48] LABS: MAGNESIUM 1.6 mg/dL (1.8-2.4)
[2018-12-08] MEDS ORDERED: AZITHROMYCIN 250 MG in DEXTROSE 5% 250 ML IV SCH ×4 (09:00)
--- NOTE | 2018-12-08 09:30 | NUR ---
OBTAINED CONSENT FOR CT SCAN. PATIENT WAS AWARE THAT SHE IS GOING TO CT SCAN PROCEDURE. NO SIGNS OF DISTRESS NOTED. SAFETY MEASURES IN PLACE.
[2018-12-08] MEDS: LACTOBACILLUS RHAMNOSUS GG 1 EACH CAP PO SCH (09:35)
[2018-12-08] MEDS: FUROSEMIDE 20 MG TAB PO SCH (09:35)
[2018-12-08] MEDS: FERROUS GLUCONATE 324 MG TAB PO SCH (09:35)
[2018-12-08] MEDS: METOPROLOL 25 MG TAB PO SCH ×2 (09:36→20:47)
[2018-12-08] MEDS: ASCORBIC ACID 500 MG TAB PO SCH (09:36)
--- NOTE | 2018-12-08 09:37 | NUR ---
ADMINISTERED MEDS PER MD ORDER, PATIENT TOLERATED WELL. PATIENT IS RESTING ON BED AT THIS TIME. PROVIDED URINE SPECIMEN CUP FOR URINE COLLECTION. INSTRUCTED PATIENT TO URINE INTO THE CUP AND USE THE CALL LIGHT FOR ASSISTANCE. PATIENT VERBALIZED UNDERSTANDING. NO SIGNS OF DISTRESS NOTED. SAFETY MEASURES IN PLACE.
--- NOTE | 2018-12-08 10:30 | NUR ---
STARTED NEW IV ON RFA 20G FOR CONTRAST SCAN, PATIENT TOLERATED WELL. NO SIGNS OF DISTRESS NOTED. SAFETY MEASURES IN PLACE.
--- NOTE | 2018-12-08 11:45 | NUR ---
PATIENT IS AWAKE AND RESTING ON BED. DENIES PAIN AND SOB. NO SIGNS OF DISTRESS NOTED. SAFETY MEASURES IN PLACE. BED IN LOW POSITION AND CALL LIGHT WITHIN REACH.
[2018-12-08] MEDS: PIPER/TAZO 3.375GM/D5W PREMIX 50 ML IV SCH ×2 (12:25→17:38)
--- NOTE | 2018-12-08 13:06 | NUR ---
PATIENT IS SITTING UP ON BED AND EATING HER LUNCH. DENIES PAIN AND SOB. NO SIGNS OF DISTRESS NOTED. SAFETY MEASURES IN PLACE. COLLECTED URINE AND DELIVERED TO LAB.
[2018-12-08] MEDS ORDERED: MAGNESIUM OXIDE 400 MG TAB PO SCH (13:20)
--- NOTE | 2018-12-08 13:41 | NUR ---
ADMINISTERED MAG PO FOR LOW MAG 1.6L FROM AM LAB, PATIENT TOLERATED WELL. PATIENT IS RESTING ON BED AT THIS TIME. NO SIGNS OF DISTRESS NOTED. SAFETY MEASURES IN PLACE.
--- NOTE | 2018-12-08 14:55 | NUR ---
DR ROBERTS WAS ASSESSING PATIENT AT BEDSIDE. PATIENT COMPLAINED THAT SHE HAS 5/10 PAIN ON HER L LOWER LEG. WILL MEDICATE WITH PRN PAIN MED. SAFETY MEASURES IN PLACE.
[2018-12-08] MEDS: HYDROcodone/APAP 5/325 MG 1 TAB TAB PO PRN ×2 (15:02→23:31)
--- NOTE | 2018-12-08 15:04 | NUR ---
ADMINISTERED PRN PAIN MED FOR 5/10 PAIN, PATIENT TOLERATED WELL. PATIENT IS AWAKE AND WATCHING TV ON BED. NO SIGNS OF DISTRESS NOTED. SAFETY MEASURES IN PLACE. INSTRUCTED PATIENT TO USE THE CALL LIGHT FOR ANY ASSISTANCE AND PATIENT WAS AWARE.
[2018-12-08] MEDS: VANCOMYCIN HCL 750 MG in DEXTROSE 5% 250 ML IV SCH (15:18)
[2018-12-08 16:00] VITALS: BP 143/83
--- NOTE | 2018-12-08 17:10 | NUR ---
PATIENT IS RESTING ON BED AT THIS TIME. NO SIGNS OF DISTRESS NOTED. SAFETY MEASURES IN PLACE. BED IN LOW POSITION AND CALL LIGHT WITHIN REACH.
--- NOTE | 2018-12-08 18:45 | NUR ---
OBTAINED CONSENT FOR PICC LINE. PATIENT WAS ACKNOWLEDGED AND AWARE OF THE PROCEDURE.
--- NOTE | 2018-12-08 19:00 | NUR ---
CALLED PICC LINE NURSE AT [phone] TWICE AND NO ANSWER. LEFT A DETAILED MESSAGE FOR RETURN CALL AT [phone]. WILL ENDORSE ABOVE INFORMATION TO ONCOMING SHIFT NURSE.
--- NOTE | 2018-12-08 19:27 | NUR ---
ENDORSED PATIENT TO CURRICULUM ASSISTANT INCLUSION SPECIALIST ELISA. INFORMED THAT CONTACT PICC LINE RN TWICE AND NO ONE ANSWER. LEFT A DETAIL MESSAGE FOR RETUNING CALL. PATIENT IS AWAKE AND SITTING UP ON BED. NO SIGNS OF DISTRESS NOTED. SAFETY MEASURES IN PLACE.
[2018-12-08 20:40] VITALS: BP 113/77
--- NOTE | 2018-12-08 20:47 | NUR ---
SEEN PT ASLEEP BUT EASILY AROUSABLE. PT AWAKE, ALERT AND ORIENTEDX4. INITIAL ASSESSMENT DONE. PT'S LEFT LEG STILL SWOLLEN, WARM TO TOUCH AND HAS PAIN WHEN W/ MOVEMENT. PT UNABLE TO RECALL WHEN WAS HER LAST BM. VITAL SIGNS CHECKED. PO MEDICATIONS GIVEN ORDERED W/ TEACHINGS. PT VERBALIZED UNDERSTANDING. PT AWARE THAT SHE WILL HAVE PICC LINE PLACED IF NOT TONIGHT , IT'LL BE TOMORROW. PT UNDERSTOOD INSTRUCTIONS. PT DENIES ANY OTHER NEEDS. SAFETY REINFORCED. CALL LIGHT W/IN REACH.
--- NOTE | 2018-12-08 21:10 | NUR ---
DR MCCORMACK CAME AND DISCONTINUED SOME OF PT'S ANTIBIOTICS AND ORDERED PENICILLIN G. HE SAID "I DIDN'T SEE IT ON THE COMPUTER AND WE TRIED BUT WE CAN'T FIND IT." DR MCCORMACK WROTE THE ORDER ON A PIECE OF PAPER AND HAND IT ON THE REVERBERATORY FURNACE SUPERVISOR. WILL CALL [facility] AND ASK.
--- NOTE | 2018-12-08 21:18 | NUR ---
SPOKE TO TIFFANY FROM [facility] ABOUT PT'S NEW ORDER OF PEN G 2 MILLION UNITS EVERY 4HRS. SHE SAID "IT'S AVAILABLE BUT ITS INSIDE THE PHARMACY AND NOT IN ANY PYXIS." WILL NOTIFY SOLAR ENERGY ENGINEER TO CALL [facility].
--- NOTE | 2018-12-08 21:20 | NUR ---
CALLED AND SPOKE TO ESTHER HARTLEYJUNIOR BRAND MANAGER REGARDING DR MCCORMACK'S ORDER. HE SAID "OK, I'LL CALL JL, [facility]=IST."
--- NOTE | 2018-12-08 23:30 | NUR ---
PT CALLED ASKING FOR SANDWICH. NUT AND BOLT ASSEMBLER MADE AWARE AND BROUGHT SANDWICH. SEEN PT HOB UP, EATING SANDWICH. PT COMPLAINING OF PAIN ON HER LEFT LEG. PT MEDICATED W/ NORCO 1TAB PRN, WELL IV PENICILLIN G GIVEN ORDERED. TEACHINGS PROVIDED. PT VERBALIZED UNDERSTANDING. REMINDED PT THAT MD ORDERED URINE SAMPLE FOR TEST AND TO CALL WHEN SHE NEEDS TO GO AND WILL PLACE BEDPAN. PT SAID "OK". SPECIMEN CUP ON THE SINK. PT DENIES ANY OTHER NEEDS. CALL LIGHT W/IN REACH.
[2018-12-08] MEDS: COMMUNICATION ORDER MC SCH (23:31)
[2018-12-08] MEDS: PENICILLIN POTASSIUM MU IV SCH (23:31)
[2018-12-08] MEDS: NACL IV SCH (23:31)
--- NOTE | 2018-12-09 01:30 | NUR ---
PT WET THE PAD. PERICARE RENDERED BY KENNY JUSTIN. PT REPOSITIONED FOR COMFORT. COMMODE PLACED AT BEDSIDE. ENCOURAGED PT TO USE COMMODE WHEN SHE WANTS TO URINATE AND TO CALL RIGHT AWAY. PT VERBALIZED UNDERSTANDING. CALL LIGHT W/IN REACH. BED ALARM ON.
[2018-12-09] MEDS: NACL IV SCH ×4 (03:31→16:13)
[2018-12-09] MEDS: COMMUNICATION ORDER MC SCH ×2 (03:31)
[2018-12-09] MEDS: PENICILLIN POTASSIUM MU IV SCH ×4 (03:31→16:13)
[2018-12-09 04:20] VITALS: BP 145/81
--- NOTE | 2018-12-09 04:20 | NUR ---
SEEN PT ASLEEP BUT EASILY AROUSABLE.. VITAL SIGNS CHECKED. PT NOT IN ANY DISCOMFORT. PT REPOSITIONED ON LEFT SIDE. ENCOURAGED TO CHANGED HER POSITION. PT VERBALIZED UNDERSTANDING.
[2018-12-09] MEDS ORDERED: CLINDAMYCIN 600 MG/4 ML VIAL ONE (04:46)
[2018-12-09] MEDS ORDERED: CLINDAMYCIN 600 MG in DEXTROSE 5% 50 ML IV SCH (05:00)
--- NOTE | 2018-12-09 06:05 | NUR ---
PT HAD URINE SPECIMEN USING BEDPAN. URINE SENT TO LAB ORDERED.
[2018-12-09] MEDS: NACL 0.9% 1,000 ML IV SCH (06:10)
--- NOTE | 2018-12-09 06:11 | NUR ---
SEEN PT ASLEEP BUT EASILY AROUSABLE. IVF BAG CHANGED. STOOL SOFTENER OFFERED LAST NIGHT BUT REFUSED. OFFERED AGAIN BUT PT SAID "I THINK I'M GONNA GO LATER TODAY." WILL ENDORSE TO DAYSHIFT TO FOLLOW UP.
--- NOTE | 2018-12-09 06:18 | NUR ---
WILL ENDORSE CARE TO DAYSHIFT NURSE.
--- NOTE | 2018-12-09 07:00 | NUR ---
CAME AND FOLLOWED UP ON PT'S PICC LINE PLACEMENT. INFORMED HER THEY CALLED PICC NURSE [id number] AND NO CALL BACK. SHE SAID, " MAKE SURE SHE'LL HAVE IT TODAY [facility] " [facility]
--- NOTE | 2018-12-09 07:20 | NUR ---
RECEIVED BEDSIDE REPORT FROM SEATING UPHOLSTERER NURSE. PATIENT IS SLEEPING ON BED AT THIS TIME. RESPIRATION EVEN AND UNLABORED ON RA. NO SIGNS OF DISTRESS NOTED. IV ON LFA 20G, INTACT AND CLEAN, INFUSING PER MD ORDER. AND IV ON R WRIST 22G, SL. REDNESS ON R LOW LEG NOTED, ELEVATED WITH PILLOW, OTHERWISE, SKIN IS DRY AND INTACT. PATIENT IS CONTINENT AND ABLE TO AMBULATE WITH ASSIST. FALL RISK INITIALED AND BED ALARM ACTIVATED. BED IN LOW POSITION AND CALL LIGHT WITHIN REACH.
[2018-12-09 07:41] LABS: HEMATOCRIT 23.8 % (36-48); HEMOGLOBIN 7.4 g/dL (12.0-16.0); MEAN CORPUSCULAR HEMOGLOBIN 22 pg (27-31); MEAN CORPUSCULAR HGB CONC 31 g/dL (33-37); MEAN CORPUSCULAR VOLUME 71.6 fL (80-94); PLATELET COUNT (AUTO) 513 K/uL (140-450); RED BLOOD CELL COUNT(AUTO) 3.32 MIL/uL (4.20-5.40); RED CELL DISTRIBUTION WIDTH 20.5 % (11.6-13.7); WHITE BLOOD COUNT (AUTO) 18.6 K/uL (4.8-10.8)
[2018-12-09 07:58] LABS: ANION GAP 13.5 (8-16); CARBON DIOXIDE 22.8 mmol/L (21-32); CREATININE 0.8 mg/dL (0.6-1.3); POTASSIUM 3.3 mmol/L (3.5-5.1)
[2018-12-09 08:00] VITALS: BP 144/89
[2018-12-09 08:00] LABS: MAGNESIUM 1.6 mg/dL (1.8-2.4); PHOSPHORUS 3.2 mg/dL (2.5-4.9)
[2018-12-09 08:31] LABS: EOSINOPHILS % (MANUAL) 3 % (0-4); LYMPHOCYTES % (MANUAL) 11 % (20-46); MONOCYTES % (MANUAL) 9 % (5-12)
--- NOTE | 2018-12-09 08:50 | NUR ---
RECEIVED A CALL FROM PICC LINE RN DIONY THAT HE WILL BE ABLE TO DO THE PICC LINE AROUND NOON TIME. AND HE WOULD LIKE TO KNOW HOW LONG IS THE PICC LINE NEEDS FOR, HE SUGGESTS FOR A MID LINE IF IT DOES NOT NEED FOR A BLOCK TRIMMER PERIOD. WILL NOTIFY ON REGARDS INFOR.
--- NOTE | 2018-12-09 08:55 | NUR ---
NOTIFIED DR ROBERTS THAT PICC LINE RN WILL BE HERE AROUND NOON AND THAT'S HIS SOONEST TIME. PER DR ROBERTS, A PICC LINE IS PREFERRED FOR PATIENT'S CONDITION. CALLED PICC LINE RN DIONY THAT PREFERS PICC LINE. PER DIONY, HE WILL BE IN THE HOSPITAL AROUND NOON.
[2018-12-09] MEDS: HYDROcodone/APAP 5/325 MG 1 TAB TAB PO PRN ×2 (09:54→15:17)
[2018-12-09] MEDS: FERROUS GLUCONATE 324 MG TAB PO SCH (09:55)
[2018-12-09] MEDS: METOPROLOL 25 MG TAB PO SCH (09:55)
[2018-12-09] MEDS: ASCORBIC ACID 500 MG TAB PO SCH (09:55)
[2018-12-09] MEDS: LACTOBACILLUS RHAMNOSUS GG 1 EACH CAP PO SCH (09:55)
[2018-12-09] MEDS: FUROSEMIDE 20 MG TAB PO SCH (09:56)
--- NOTE | 2018-12-09 10:00 | NUR ---
ADMINISTERED MEDS PER MD ORDER. PATIENT COMPLAINED SHE HAS 6/10 ON HER L LOWER LEG. ADMINISTERED PRN PAIN MED NORCO, PATIENT TOLERATED WELL. PT IS BY BEDSIDE. SAFETY MEASURES IN PLACE.
[2018-12-09] MEDS ORDERED: LACT10CA1 PO (10:36)
[2018-12-09] MEDS ORDERED: CLIN600P4 IV (10:36)
[2018-12-09] MEDS ORDERED: [UNRECOGNIZED DRUG - CODE] IV (10:36)
[2018-12-09] MEDS ORDERED: POTASSIUM CHLORIDE 10 MEQ TABER PO SCH (11:00)
[2018-12-09] MEDS ORDERED: MAG SULF 2000 MG/WATER PREMIX 50 ML IV SCH (11:00)
[2018-12-09] MEDS ORDERED: METO25TA PO (11:21)
--- NOTE | 2018-12-09 11:21 | NUR ---
ADMINISTERED MEDS PER MD ORDER, PATIENT TOLERATED WELL. PATIENT IS RESTING ON BED AT THIS TIME. NO SIGNS OF DISTRESS NOTED. SAFETY MEASURES IN PLACE. BED IN LOW POSITION AND CALL LIGHT WITHIN REACH.
--- NOTE | 2018-12-09 11:31 | NUR ---
CALLED KALLIE MONDRAGON AT [phone], SPOKE TO EMERALD ARANDA. PATIENT WILL GO TO ROOM 222A, RECEIVING DOCTOR WILL BE DR SANDOVAL. LY SANDERSON AT [facility] THEY CAN SET UP TRANSPORTATION.
[2018-12-09] MEDS ORDERED: CLINDAMYCIN PHOS 600MG/D5W PM 50 ML IV SCH (13:00)
--- NOTE | 2018-12-09 13:35 | NUR ---
PICC LINE HAS INSERTED AND CONFIRMED BY XRAY. PATIENT IS RESTING ON BED AT THIS TIME. NO SIGNS OF DISTRESS NOTED. SAFETY MEASURES IN PLACE. BED IN LOW POSITION AND CALL LIGHT WITHIN REACH. INSTRUCTED PATIENT TO USE THE CALL LIGHT FOR ANY ASSISTANCE AND PATIENT WAS AWARE.
--- NOTE | 2018-12-09 13:56 | NUR ---
CALLED KALLIE MONDRAGON AND GAVE FULL REPORT TO YESSENIA Ramirez RN. ANSWERED ALL YESSENIA'S QUESTIONS AND LEFT CALL BACK NUMBER FOR FURTHER QUESTION. YESSENIA VERBALIZED UNDERSTANDING THAT PATIENT WILL BE TRANSFER TO HIS FACILITY AND PLACE IN ROOM 222A UNDER THE CARE OF DR SANDOVAL.
--- NOTE | 2018-12-09 14:15 | NUR ---
CONTACTED PATIENT'S FRIEND CELINA 3X AND NO ONE ANSWER. UNABLE TO LEAVE A MESSAGE DUE TO VOICE BOX FULL.
--- NOTE | 2018-12-09 14:58 | NUR ---
PER ALIZA MONDRAGON [phone], CONVEYOR BELT REPAIRER WILL BE BETWEEN [phone]. PRIMARY RN AND CHARGE NURSE MADE AWARE.
--- NOTE | 2018-12-09 15:18 | NUR ---
PATIENT COMPLAINED OF 5/10 PAIN ON HER LL LEG, ADMINISTERED PRN PAIN PER MD ORDER, PATIENT TOLERATED WELL. SAFETY MEASURES IN PLACE.
[2018-12-09 16:00] VITALS: BP 151/80
--- NOTE | 2018-12-09 16:15 | NUR ---
PATIENT IS TALKING ON THE PHONE WITH FRIEND CELINA. PATIENT INFORMED HER FRIEND CELINA THAT SHE WILL BE TRANSFER TO [facility] LATER. PATIENT IS SITTING ON BED. NO SIGNS OF DISTRESS NOTED. SAFETY MEASURES IN PLACE.
--- NOTE | 2018-12-09 16:30 | NUR ---
PATIENT SAID SHE FEELS HUNGRY AND WOULD LIKE TO GET A SANDWICH. PAGED FNS AND PER FNS, THEY WILL BRING IT TO PATIENT'S ROOM.
--- NOTE | 2018-12-09 16:45 | NUR ---
PATIENT IS EATING SANDWICH ON BED. NO SIGNS OF DISTRESS NOTED. SAFETY MEASURES IN PLACE.
--- NOTE | 2018-12-09 17:30 | NUR ---
DISCHARGE INSTRUCTION PROVIDED TO PATIENT AT BEDSIDE. PRINTED DISCHARGE PACKET PROVIDED TO PATIENT. EDUCATED PATIENT ON DISEASE MANAGEMENT, SIGNS AND SYMPTOMS, MEDICATION REGIMEN AND SIDE EFFECTS. PATIENT VERBALIZED UNDERSTANDING. D/C IV AND IV CANNULAS INTACT, NO BLEEDING AT IV SITE. PATIENT WILL BE TRANSFER TO [facility] WITH PICC LINE FOR ABX TREATMENT. REMOVED ALL ID BANDS. PATIENT IS GOING TO TRANSFER AT THIS TIME ACCOMPANIED BY TRANSPORT PERSONNEL MIRANDA. PATIENT IS IN STABLE CONDITION.
== END 2018-12-09 17:30 | DRG 871 ==
LOC: MED 22:17 → MMU 12-04 01:07 → MTU 12-04 03:31
PROVIDERS: ADMIT General Practice; ATTEND General Practice
PROC: 30233N1 Transfusion of Nonautologous Red Blood Cells into Peripheral Vein, Percutaneous Approach (ICD-10-PCS; principal; 2018-12-05)
PROC: 02HV33Z Insertion of Infusion Device into Superior Vena Cava, Percutaneous Approach (ICD-10-PCS; 2018-12-09)
PROC: B548ZZA Ultrasonography of Superior Vena Cava, Guidance (ICD-10-PCS; 2018-12-09)
DX: A41.9 Sepsis, unspecified organism (principal); I21.A1 Myocardial infarction type 2; I50.43 Acute on chronic combined systolic (congestive) and diastolic (congestive) heart failure; G93.41 Metabolic encephalopathy; N17.0 Acute kidney failure with tubular necrosis; E87.1 Hypo-osmolality and hyponatremia; E44.0 Moderate protein-calorie malnutrition; L03.116 Cellulitis of left lower limb; R65.20 Severe sepsis without septic shock; I11.0 Hypertensive heart disease with heart failure; F41.9 Anxiety disorder, unspecified; E78.5 Hyperlipidemia, unspecified; F43.20 Adjustment disorder, unspecified; F32.9 Major depressive disorder, single episode, unspecified; W18.39XA Other fall on same level, initial encounter; G90.9 Disorder of the autonomic nervous system, unspecified; D58.0 Hereditary spherocytosis; D47.3 Essential (hemorrhagic) thrombocythemia; F15.90 Other stimulant use, unspecified, uncomplicated; E86.0 Dehydration; E87.6 Hypokalemia; E83.42 Hypomagnesemia; R74.0 Nonspecific elevation of levels of transaminase and lactic acid dehydrogenase [LDH]; E83.39 Other disorders of phosphorus metabolism; N28.9 Disorder of kidney and ureter, unspecified; J44.9 Chronic obstructive pulmonary disease, unspecified; Z68.23 Body mass index [BMI] 23.0-23.9, adult; Z88.6 Allergy status to analgesic agent; Z86.73 Personal history of transient ischemic attack (TIA), and cerebral infarction without residual deficits; Y93.89 Activity, other specified; Y92.89 Other specified places as the place of occurrence of the external cause; Y99.8 Other external cause status; N20.0 Calculus of kidney
CPT/HCPCS: 36415; 70450; 71045; 72110; 72125; 73702; 76536; 76705; 76770; 76881; 80048; 80053; 80305; 81001; 82150; 82272; 82306; 82570; 82607; 82728; 82746; 83036; 83540; 83605; 83690; 83735; 83880; 84100; 84134; 84300; 84436; 84443; 84484; 85007; 85025; 85045; 85610; 85730; 86886; 86900; 86901; 86920; 87040; 87081; 87086; 92610; 93005; 93880; 93925; 93970; 95816; 97110; 97116; 97161-GP; 97530; C1751; J0456; J1644; J1885; J2001; J2540; J2543; J2916; J3370; J3475; J3480; J3490; J7030; J7042; J7060; J7620; P9016; Q0092; Q9967